=== PATIENT | female | born 1965 | race Caucasian/White ===

== ENCOUNTER → 2016-03-07 | Outpatient (CLI) | payer BC ==
--- NOTE | 2016-03-08 10:23 | MM ---
Reason for exam: screening (asymptomatic). Last mammogram was performed 3 years and 2 months ago. History: Patient had first child at age 31. Physical Findings: A clinical breast exam by your physician is recommended on an annual basis and results should be correlated with mammographic findings. MG Screening Mammo w CAD Bilateral CC and MLO view(s) were taken. XCCL view(s) were taken of the right breast. Prior study comparison: December 29, 2012, bilateral digital screening mammo w/CAD. May 31, 2008, bilateral diagnostic digital mammog. The breast tissue is heterogeneously dense. This may lower the sensitivity of mammography. No significant changes when compared with prior studies. ASSESSMENT: Benign, BI-RAD 2 RECOMMENDATION: Routine screening mammogram of both breasts in 1 year.
== END | disposition home or self-care (01) ==
LOC: RADMAMWWP 10:55
PROVIDERS: ATTEND Obstetrics & Gynecology
DX: Z12.31 Encounter for screening mammogram for malignant neoplasm of breast (principal)

== ENCOUNTER → 2016-05-15 | Outpatient (CLI) | payer BC ==
--- NOTE | 2016-05-15 13:37 | BD ---
EXAMINATION TYPE: MG DEXA axial skeleton. DATE OF EXAM: 05/15/2016 10:12 AM COMPARISON: NONE CLINICAL HISTORY: Postmenopausal female Height: 67 Weight: 133.1 FRAX RISK QUESTIONS: Alcohol (3 or more units per day): YES Family History (Parent hip fracture): NO Glucocorticoids (More than 3mos): NO (Ex: prednisone, prednisolone, methylprednisolone, dexamethasone, and hydrocortisone). History of Fracture in Adulthood: NO Secondary Osteoporosis: 1. Type 1 Diabetes: NO 2. Hyperthyroidism: NO 3. Menopause before 45: 4. Malnutrition: NO 5. Chronic liver disease: NO Rheumatoid Arthritis: NO Current Tobacco Use: YES RISK FACTORS HISTORY OF: Hip Fracture (Right/Left): NO Spine Fracture: NO History of Wrist Fracture: NO Surgery to Spine/Hip(right/left)/Wrist (right/left): NO Family History of Osteoporosis: YES Active: YES Diet low in dairy products/other sources of calcium: YES Postmenopausal woman: If Premenopausal, do you have irregular periods: PT HAD AN ABLATION AT AGE 41 Lost more than 2 inches in height since high school: NO Frequent falls: NO Poor Health: NO Adrenal Insufficiency: NO MEDICATIONS: BLOOD PRESSURE, VIT D ,XANAX NEEDED Thyroid Medications: SYNTHROID How Lon YEARS EXAM MEASUREMENTS: Bone mineral densitometry was performed using the Sutus System. Bone mineral density as measured about the Lumbar spine is: ----- L1-L4(G/cm2): 1.176 T Score Values are as follows: ----- L2: 0.7 ----- L3: 0.8 ----- L4: -0.4 ----- L1-L4: 0.0 Bone mineral density has: INCREASED 15.9 % since study of: 08.17.2008 Bone mineral density about the R hip (g/cm2): 0.885 Bone mineral density about the L hip (g/cm2): 0.896 T Score values are as follows: -----R Neck: -1.1 -----L Neck: -1.0 -----R Intertrochanter: -1.4 -----L Intertrochanter: -1.0 Bone mineral density has: DECREASED =8.6 % since study of: 08.17.2008 IMPRESSION: Findings compatible with osteopenia involving the bilateral proximal femora. As such there is increas ed fracture risk. NOTE: T-SCORE=SD OF THE YOUNG ADULT MEAN.
== END | disposition home or self-care (01) ==
LOC: RADBDWWP 09:55
PROVIDERS: ATTEND Obstetrics & Gynecology
DX: Z78.0 Asymptomatic menopausal state (principal)
CPT/HCPCS: 77080

== ENCOUNTER 2016-10-15 12:18 | Observation (INO) | payer BC ==
[2016-10-15 13:06] LABS: Glucose,Whole Blood 134 mg/dL (75-99)
[2016-10-15] MEDS ORDERED: SODIUM CHLORIDE 0.9% 2,000 ML IV ONE (13:09)
[2016-10-15] MEDS ORDERED: SODIUM CHLORIDE 0.9% 1,000 ML IV STA (13:09)
--- NOTE | 2016-10-15 13:13 | ED ---
Syncope HPI - General Chief Complaint: Syncope Stated Complaint: Dizziness Time Seen by Provider: 10/15/16 12:30 Source: patient, RN notes reviewed Mode of arrival: ambulatory Limitations: no limitations - History of Present Illness Initial Comments: This is a 51-year-old female who states she didn't not feeling well for the past several days she's had nausea chills and some lower abdominal pain in the right side for past 2 days. She is noted to have a blood pressure 90/50 she apparently passed out numerous times her last several days. She complains no head or neck or back pain no extremity weakness. No dysuria hematuria. MD Complaint: loss of consciousness - Related Data Home Medications Medication Instructions Recorded Confirmed Cholecalciferol [Vitamin D3] 1,000 unit PO DAILY 10/15/16 10/15/16 Escitalopram [Lexapro] 10 mg PO DAILY 10/15/16 10/15/16 Levothyroxine Sodium [Synthroid] 50 mcg PO DAILY 10/15/16 10/15/16 Lisinopril-Hctz 20-25 mg 1 tab PO DAILY 10/15/16 10/15/16 [Zestoretic 20-25] Allergies Allergy/AdvReac Type Severity Reaction Status Date / Time No Known Allergies Allergy Verified 10/15/16 14:23 Review of Systems ROS Statement: Those systems with pertinent positive or pertinent negative responses have been documented in the HPI. ROS Other: All systems not noted in ROS Statement are negative. Past Medical History Past Medical History: Hypertension, Thyroid Disorder History of Any Multi-Drug Resistant Organisms: None Reported Past Surgical History: Uterine Ablation Additional Past Surgical History / Comment(s): left sided thyroidectomy, knee sx Past Psychological History: Anxiety, Depression Smoking Status: Current every day smoker Past Alcohol Use History: Occasional Past Drug Use History: None Reported General Exam - General Exam Comments Initial Comments: This is a well-developed well-nourished awake alert oriented 3 female Limitations: no limitations General appearance: alert, in no apparent distress Head exam: Present: atraumatic, normocephalic, normal inspection Eye exam: Present: normal appearance, PERRL, EOMI. Absent: scleral icterus, conjunctival injection, periorbital swelling ENT exam: Present: mucous membranes dry Neck exam: Present: normal inspection. Absent: tenderness, meningismus, lymphadenopathy Respiratory exam: Present: normal lung sounds bilaterally. Absent: respiratory distress, wheezes, rales, rhonchi, stridor Cardiovascular Exam: Present: normal rhythm, tachycardia GI/Abdominal exam: Present: soft (Right lower quadrant tenderness palpation no definite guarding or rebound.), tenderness Rectal exam: Present: deferred Extremities exam: Present: normal inspection, full ROM, normal capillary refill. Absent: tenderness, pedal edema, joint swelling, calf tenderness Back exam: Present: normal inspection Neurological exam: Present: alert, oriented X3, CN II-XII intact Psychiatric exam: Present: normal affect, normal mood Skin exam: Present: warm, dry, intact, normal color. Absent: rash Course Vital Signs 10/15/16 10/15/16 10/15/16 12:28 13:32 14:00 Temperature 97.2 F L Pulse Rate 111 H 75 80 Respiratory 18 18 20 Rate Blood Pressure 74/49 82/53 96/51 O2 Sat by Pulse 100 96 99 Oximetry 10/15/16 10/15/16 16:00 17:00 Temperature Pulse Rate 87 76 Respiratory 20 20 Rate Blood Pressure 107/54 100/59 O2 Sat by Pulse 95 94 L Oximetry EKG Findings - EKG Results: EKG: interpreted by SANDRA, sinus rhythm (EKG shows a sinus rhythm of 83 appear of 01 60 QRS duration 84 QT since QTC of 3/446 right atrial enlargement evidence of indeterminate age anterior infarct. No acute ST-T wave elevations or depressions at this time.) Medical Decision Making - Medical Decision Making I did discuss findings with the patient she will be admitted for evaluation of syncope also abdominal pain. The CAT scan report was unavailable after prolonged period of time. The admitting service was made aware of this. They will review the CAT scan and final report. - Lab Data Result diagrams: 10/15/16 13:09 10/15/16 13:09 Lab Results 10/15/16 10/15/16 10/15/16 Range/Units 13:03 13:09 13:09 WBC (3.8-10.6) k/uL RBC (3.80-5.40) m/uL Hgb (11.4-16.0) gm/dL Hct (34.0-46.0) % MCV (80.0-100.0) fL MCH (25.0-35.0) pg MCHC (31.0-37.0) g/dL RDW (11.5-15.5) % Plt Count (150-450) k/uL Neutrophils % % Lymphocytes % % Monocytes % % Eosinophils % % Basophils % % Neutrophils # (1.3-7.7) k/uL Lymphocytes # (1.0-4.8) k/uL Monocytes # (0-1.0) k/uL Eosinophils # (0-0.7) k/uL Basophils # (0-0.2) k/uL PT (9.0-12.0) sec INR (<1.2) APTT (22.0-30.0) sec Sodium 132 L (137-145) mmol/L Potassium 3.6 (3.5-5.1) mmol/L Chloride 90 L (98-107) mmol/L Carbon Dioxide 28 (22-30) mmol/L Anion Gap 14 mmol/L BUN 43 H (7-17) mg/dL Creatinine 2.19 H (0.52-1.04) mg/dL Est GFR (MDRD) Af Amer 29 (>60 ml/min/1.73 sqM) Est GFR (MDRD) Non-Af 24 (>60 ml/min/1.73 sqM) Glucose 109 H (74-99) mg/dL POC Glucose (mg/dL) 134 H (75-99) mg/dL POC Glu Sr. Logistics Analyst ID Calcium 9.6 (8.4-10.2) mg/dL Magnesium 1.9 (1.6-2.3) mg/dL Total Bilirubin 0.6 (0.2-1.3) mg/dL AST 32 (14-36) U/L ALT 34 (9-52) U/L Alkaline Phosphatase 97 (38-126) U/L Total Creatine Kinase 110 (30-135) U/L CK-MB (CK-2) 3.3 H* (0.0-2.4) ng/mL CK-MB (CK-2) Rel Index 3.0 Troponin I <0.012 (0.000-0.034) ng/mL Total Protein 7.0 (6.3-8.2) g/dL Albumin 4.2 (3.5-5.0) g/dL Amylase 119 H (30-110) U/L Lipase 147 (23-300) U/L Urine Color Urine Appearance (Clear) Urine pH (5.0-8.0) Ur Specific [place] (1.001-1.035) Urine Protein (Negative) Urine Glucose (UA) (Negative) Urine Ketones (Negative) Urine Blood (Negative) Urine Nitrite (Negative) Urine Bilirubin (Negative) Urine Urobilinogen (<2.0) mg/dL Ur Leukocyte Esterase (Negative) 10/15/16 10/15/16 10/15/16 Range/Units 13:09 13:09 17:14 WBC 10.2 (3.8-10.6) k/uL RBC 4.06 (3.80-5.40) m/uL Hgb 14.0 (11.4-16.0) gm/dL Hct 39.0 (34.0-46.0) % MCV 96.1 (80.0-100.0) fL MCH 34.5 (25.0-35.0) pg MCHC 35.9 (31.0-37.0) g/dL RDW 12.7 (11.5-15.5) % Plt Count 301 (150-450) k/uL Neutrophils % 75 % Lymphocytes % 14 % Monocytes % 8 % Eosinophils % 1 % Basophils % 0 % Neutrophils # 7.6 (1.3-7.7) k/uL Lymphocytes # 1.4 (1.0-4.8) k/uL Monocytes # 0.8 (0-1.0) k/uL Eosinophils # 0.1 (0-0.7) k/uL Basophils # 0.0 (0-0.2) k/uL PT 9.9 (9.0-12.0) sec INR 1.0 (<1.2) APTT 23.8 (22.0-30.0) sec Sodium (137-145) mmol/L Potassium (3.5-5.1) mmol/L Chloride (98-107) mmol/L Carbon Dioxide (22-30) mmol/L Anion Gap mmol/L BUN (7-17) mg/dL Creatinine (0.52-1.04) mg/dL Est GFR (MDRD) Af Amer (>60 ml/min/1.73 sqM) Est GFR (MDRD) Non-Af (>60 ml/min/1.73 sqM) Glucose (74-99) mg/dL POC Glucose (mg/dL) (75-99) mg/dL POC Glu Sr. Logistics Analyst ID Calcium (8.4-10.2) mg/dL Magnesium (1.6-2.3) mg/dL Total Bilirubin (0.2-1.3) mg/dL AST (14-36) U/L ALT (9-52) U/L Alkaline Phosphatase (38-126) U/L Total Creatine Kinase (30-135) U/L CK-MB (CK-2) (0.0-2.4) ng/mL CK-MB (CK-2) Rel Index Troponin I (0.000-0.034) ng/mL Total Protein (6.3-8.2) g/dL Albumin (3.5-5.0) g/dL Amylase (30-110) U/L Lipase (23-300) U/L Urine Color Yellow Urine Appearance Clear (Clear) Urine pH 6.0 (5.0-8.0) Ur Specific [place] 1.007 (1.001-1.035) Urine Protein Negative (Negative) Urine Glucose (UA) Negative (Negative) Urine Ketones 1+ H (Negative) Urine Blood Negative (Negative) Urine Nitrite Negative (Negative) Urine Bilirubin Negative (Negative) Urine Urobilinogen <2.0 (<2.0) mg/dL Ur Leukocyte Esterase Negative (Negative) - Radiology Data Radiology results: report reviewed (I did review the initial imaging and report there is calcification noted in the left upper quadrant otherwise unremarkable x -ray.), image reviewed Disposition Clinical Impression: Syncope and collapse, Abdominal pain, Renal failure, Splenic cyst Disposition: ADMITTED IP TO THIS [facility] Condition: Stable Referrals: Kevin Gabriel III, MD [Primary Care Provider] - 1-2 days Decision Time: 16:00
[2016-10-15 13:23] LABS: Basophils % (A) 0 %; CH 34.9; CHCM 36.4; Eosinophils # (A) 0.1 k/uL (0-0.7); Eosinophils % (A) 1 %; HDW 2.23; Luc # (Auto) 0.25; Luc % (Auto) 2; Lymphocytes # (A) 1.4 k/uL (1.0-4.8); Lymphocytes % (A) 14 %; MCH 34.5 pg (25.0-35.0); MCHC 35.9 g/dL (31.0-37.0); MCV 96.1 fL (80.0-100.0); Mean Platelet Volume 6.8; Monocytes # (A) 0.8 k/uL (0-1.0); Monocytes % (A) 8 %; Neutrophils # (A) 7.6 k/uL (1.3-7.7); Neutrophils % (A) 75 %; RBC 4.06 m/uL (3.80-5.40); RDW 12.7 % (11.5-15.5); WBC 10.2 k/uL (3.8-10.6); WBC (Perox) 10.73
[2016-10-15 13:32] LABS: Partial Thromboplastin Time 23.8 sec (22.0-30.0); Prothrombin Time 9.9 sec (9.0-12.0)
[2016-10-15 13:40] LABS: Calcium 9.6 mg/dL (8.4-10.2); Magnesium 1.9 mg/dL (1.6-2.3); Potassium 3.6 mmol/L (3.5-5.1); Total Bilirubin 0.6 mg/dL (0.2-1.3)
[2016-10-15 13:55] LABS: Creatine Kinase 110 U/L (30-135)
[2016-10-15 14:07] LABS: Troponin I <0.012 ng/mL (0.000-0.034)
[2016-10-15 14:10] LABS: Creatine Kinase MB 3.3 ng/mL (0.0-2.4)
--- NOTE | 2016-10-15 14:10 | XR ---
EXAMINATION TYPE: XR abdomen acute w cxr DATE OF EXAM: 10/15/2016 COMPARISON: NONE HISTORY: Pain TECHNIQUE: Supine, upright, and left side down lateral decubitus views of the abdomen are obtained. FINDINGS: Large calcifications in the left upper quadrant could be related to splenic cysts or spleni c artery aneurysm. Favor splenic cyst. No pleural effusion or pneumothorax. The lungs are clear. Curvature the spine. Bowel gas pattern nonspecific with no obstruction. No suspicious calcifications. IMPRESSION: Nonspecific abdomen with no obstruction. Large calcifications left upper quadrant could be related to large splenic cyst or less likely splenic artery aneurysm. Correlate with ultrasound or CT scan if c linically warranted.
[2016-10-15 17:24] LABS: Appearance,Urine Clear (Clear); Bilirubin,Urine Negative (Negative); Glucose,Urine (UA) Negative (Negative); Ketones,Urine 1+ (Negative); Leukocyte Esterase,Urine Negative (Negative); Nitrite,Urine Negative (Negative); Protein,Urine Negative (Negative); Specific Gravity,Urine 1.007 (1.001-1.035); UA Billing (MACRO vs. MICRO) CHEM; Urobilinogen,Urine <2.0 mg/dL (<2.0)
[2016-10-15] MEDS ORDERED: NALOXONE 0.4 MG/ML 1 ML VIAL IV PRN (17:46)
[2016-10-15 18:50] VITALS: BMI 20.9
--- NOTE | 2016-10-15 19:43 | CT ---
EXAMINATION TYPE: CT abdomen pelvis wo con DATE OF EXAM: 10/15/2016 COMPARISON: NONE HISTORY: Nausea, abdominal pain and syncope. CT DLP: 258.9 mGycm Automated exposure control for dose reduction was used. TECHNIQUE: Helical acquisition of images was performed from the lung bases through the pelvis. FINDINGS: Lack of intravenous and oral contrast Limited evaluation of the hollow and solid viscera. LUNG BASES: No significant abnormality is appreciated. There is a small hiatal hernia. LIVER/GB: Focal fatty infiltration is seen in segment IVb of the liver, geographic and wedge shaped i n the typical location near the fissure for the falciform ligament. Remainder the unenhanced hepatic parenchyma is grossly unremarkable. Gallbladder is contracted. PANCREAS: No significant abnormality is seen. SPLEEN: Peripherally calcified rounded cystic lesion is seen within the superior spleen measuring 7.3 x 6.4 cm with smaller 3.2 cm similar appearing lesion more inferiorly. This is thought to also be fl uid attenuated centrally although volume averaging is seen from the adjacent calcifications. ADRENALS: No significant abnormality is seen. KIDNEYS: 2.6 cm simple right midpole renal cyst exophytically emanates laterally. No evidence of hydr onephrosis or nephrolithiasis. Second 1.1 cm right upper pole renal cyst is noted. FREE AIR: No free air is visualized RETROPERITONEAL ADENOPATHY: None visualized REPRODUCTIVE ORGANS: Right adnexal follicular changes are seen. Otherwise unremarkable. URINARY BLADDER: No significant abnormality is seen. PELVIC ADENOPATHY: None visualized. OSSEOUS STRUCTURES: No significant abnormality is seen. BOWEL: Scattered sigmoid diverticula are present without pericolonic fat stranding.. IMPRESSION: 1. No CT finding to correspond with the patient's abdominal pain and nausea. No evidence of bowel obs truction. Sigmoid diverticulosis without evidence of diverticulitis. 2. Small hiatal hernia. 3. Large calcified stomach lesion and adjacent smaller calcified splenic lesion, both thought to be c ystic internally. These could represent peripherally calcified splenic lymphangiomas, hemangiomas, po sttraumatic fall cysts or less likely hydatid cysts.
[2016-10-15] MEDS: SODIUM CHLORIDE 0.9% 1,000 ML IV SCH (20:58)
[2016-10-15] MEDS ORDERED: CALCIUM CARBONATE 500 MG CHEWABLE PO PRN (21:08)
[2016-10-15 23:53] VITALS: RESP 16
[2016-10-16] MEDS ORDERED: LEVOTHYROXINE 50 MCG TAB PO SCH (06:30)
[2016-10-16] MEDS: SODIUM CHLORIDE 0.9% 1,000 ML IV SCH (06:40)
[2016-10-16 08:21] VITALS: BP 113/56; PULSE 67; TEMP 98
[2016-10-16] MEDS ORDERED: ESCITALOPRAM 10 MG TAB PO SCH (09:00)
[2016-10-16] MEDS ORDERED: LISINOPRIL-HCTZ 20-25 MG 1 EACH TAB PO SCH (09:00)
[2016-10-16] MEDS ORDERED: CHOLECALCIFEROL 1,000 UNIT TAB PO SCH (09:00)
[2016-10-16] MEDS ORDERED: ACETAMINOPHEN TAB 325 MG TAB PO STA (11:09)
--- NOTE | 2016-10-16 11:12 | ECHOF ---
Referral Reason:Syncope MEASUREMENTS -------- HEIGHT: 167.6 cm WEIGHT: 58.1 kg BP: 108/62 IVSd: 0.6 cm (0.6 - 1.1) LVIDd: 4.1 cm (3.9 - 5.3) LVPWd: 1.0 cm (0.6 - 1.1) IVSs: 1.2 cm LVIDs: 2.0 cm LVPWs: 1.8 cm Ao Diam: 2.9 cm (2.0 - 3.7) AV Cusp: 1.9 cm (1.5 - 2.6) LA Diam: 2.9 cm (2.7 - 3.8) MV EXCURSION: 17.310 mm (> 18.000) MV EF SLOPE: 133 mm/s (70 - 150) EPSS: 0.4 cm MV E [place]: 0.98 m/s MV DecT: 216 ms MV A [place]: 1.08 m/s MV E/A Ratio: 0.90 RAP: 5.00 mmHg RVSP: 9.35 mmHg FINDINGS -------- Sinus rhythm. This was a technically good study. Left ventricular wall thickness is normal. Overall left ventricular systolic function is normal with, an EF between 55 - 60 %. The right ventricle is normal in size. The left atrium is normal in size. The right atrium is normal in size. The aortic valve is trileaflet, and appears structurally normal. No aortic stenosis or regurgitation. There is trace mitral regurgitation. Trace tricuspid regurgitation present. The right ventricular systolic pressure, as measured by Doppler, is 9.35mmHg. Pulmonic valve appears structurally normal. The aortic root size is normal. The pericardium is normal. CONCLUSIONS -------- 1. Sinus rhythm. 2. Trace tricuspid regurgitation present. 3. The right ventricular systolic pressure, as measured by Doppler, is 9.35mmHg. 4. Pulmonic valve appears structurally normal. 5. The aortic root size is normal. 6. The pericardium is normal. 7. This was a technically good study. 8. Left ventricular wall thickness is normal. 9. Overall left ventricular systolic function is normal with, an EF between 55 - 60 %. 10. The right ventricle is normal in size. 11. The left atrium is normal in size. 12. The right atrium is normal in size. 13. The aortic valve is trileaflet, and appears structurally normal. No aortic stenosis or regurgitation. 14. There is trace mitral regurgitation. LADLE OPERATOR: Bailey Cartwright RDCS
--- NOTE | 2016-10-16 12:00 | US ---
EXAMINATION TYPE: US carotid duplex BILAT DATE OF EXAM: 10/16/2016 COMPARISON: NONE CLINICAL HISTORY: Pain. Hypotension, dizziness, weakness EXAM MEASUREMENTS: RIGHT: Peak Systolic Velocity (PSV) cm/sec ----- Right CCA: 68.2 ----- Right ICA: 106.0 ----- Right ECA: 72.4 ICA/CCA ratio: 1.6 RIGHT: End Diastole cm/sec ----- Right CCA: 20.2 ----- Right ICA: 40.6 ----- Right ECA: 14.2 LEFT: Peak Systolic Velocity (PSV) cm/sec ----- Left CCA: 84.5 ----- Left ICA: 87.1 ----- Left ECA: 48.8 ICA/CCA ratio: 1.0 LEFT: End Diastole cm/sec ----- Left CCA: 25.0 ----- Left ICA: 44.8 ----- Left ECA: 10.4 VERTEBRALS (direction of flow): Right Vertebral: Antegrade Left Vertebral: Antegrade Mild plaque bilateral bifurcations. No evidence of increased velocities. No significant stenosis Grayscale images show mild eccentric plaque at bilateral carotid bulbs more prominent on the left. Ve locity measurements and ratios in visualized portion of both internal carotid arteries is within norm al limits. IMPRESSION: There is no hemodynamically significant stenosis seen in either internal carotid artery.
[2016-10-16 12:44] LABS: Anion Gap 7 mmol/L; Blood Urea Nitrogen 24 mg/dL (7-17); Calcium 8.9 mg/dL (8.4-10.2); Carbon Dioxide 29 mmol/L (22-30); Chloride 101 mmol/L (98-107); Glucose 106 mg/dL (74-99); Non-African American GFR(MDRD) >60 (>60 ml/min/1.73 sqM); Potassium 3.2 mmol/L (3.5-5.1); Sodium 137 mmol/L (137-145)
[2016-10-16] MEDS ORDERED: POTASSIUM CHLORIDE ER 20 MEQ TAB.ER PO STA (14:49)
--- NOTE | 2016-10-16 14:53 | P.HPIM ---
History of Present Illness Patient is a 51-year-old female came in with compensative syncope had 3 episodes yesterday without any seizure-like activity. Patient has been dizzy all day yesterday had episodes lasted for a few seconds. Patient is found to be hypotensive and patient is also found to be in renal failure patient is on lisinopril and hydrocodone for his accommodation for more than any other. Patient has been losing weight probably because of which her blood pressure has come down and the patient appeared to have prerenal azotemia from SHANDA inhibitor and diuretic, after aggressive fluid hydration her kidney function returned to normal from 2.19-0.85 and patient was hypokalemic as well which resolved day as well. Patient hyponatremia resolved with IV fluid hydration. Patient is feeling well. Patient had an echo cardiac exam which is essentially within normal limits patient syncope secondary to hypotension related to her medications. Which will be discontinued and patient will be discharged today. Patient's EKG and telemetry are essentially within normal lives during this hospitalization. Review of Systems REVIEW OF SYSTEMS: CONSTITUTIONAL: No fever, no malaise, no fatigue. HEENT: No recent visual problems or hearing problems. Denied any sore throat. CARDIOVASCULAR: No chest pain, orthopnea, PND, no palpitations. PULMONARY: No shortness of breath, no cough, no hemoptysis. GASTROINTESTINAL: No diarrhea, no nausea, no vomiting, no abdominal pain. Normoactive bowel sounds. NEUROLOGICAL: No headaches, no weakness, no numbness. HEMATOLOGICAL: Denies any bleeding or petechiae. GENITOURINARY: Denies any burning micturition, frequency, or urgency. MUSCULOSKELETAL/RHEUMATOLOGICAL: Denies any joint pain, swelling, or any muscle pain. ENDOCRINE: Denies any polyuria or polydipsia. The rest of the 14-point review of systems is negative. Past Medical History Past Medical History: Hypertension, Thyroid Disorder History of Any Multi-Drug Resistant Organisms: None Reported Past Surgical History: Uterine Ablation Additional Past Surgical History / Comment(s): left sided thyroidectomy, knee sx Past Psychological History: Anxiety, Depression Smoking Status: Current every day smoker Past Alcohol Use History: Occasional Past Drug Use History: None Reported Medications and Allergies Home Medications Medication Instructions Recorded Confirmed Type Cholecalciferol [Vitamin D3] 1,000 unit PO DAILY 10/15/16 10/15/16 History Escitalopram [Lexapro] 10 mg PO DAILY 10/15/16 10/15/16 History Levothyroxine Sodium [Synthroid] 50 mcg PO DAILY 10/15/16 10/15/16 History Allergies Allergy/AdvReac Type Severity Reaction Status Date / Time No Known Allergies Allergy Verified 10/15/16 14:23 Physical Exam Vitals: Vital Signs Temp Pulse Pulse Resp BP BP Pulse Ox 10/16/16 08:20 98 F 67 16 113/56 100 10/16/16 04:00 98.1 F 63 16 108/62 97 10/16/16 00:00 97.6 F 65 16 113/59 94 L 10/15/16 20:00 97.6 F 79 16 112/56 94 L 10/15/16 19:06 97 F L 76 17 104/52 96 10/15/16 18:21 98 F 10/15/16 18:00 106 H 20 118/63 98 10/15/16 17:00 76 20 100/59 94 L 10/15/16 16:00 87 20 107/54 95 Intake and Output 10/15/16 10/16/16 10/16/16 22:59 06:59 14:59 Intake Total 2200 400 Output Total 300 300 Balance 1900 100 Intake: IV 200 400 Sodium Chloride 0.9% 1, 200 400 000 ml @ 100 mls/hr IV . Q10H JAZMIN Rx#:[id number] Amount of Fluid Infused ( 2000 ml) Output: Urine 300 300 Other: Voiding Method Toilet Toilet # Voids 1 1 Weight 58.967 kg 58.3 kg PHYSICAL EXAMINATION: GENERAL: The patient is alert and oriented x3, not in any acute distress. Well developed, well nourished. HEENT: Pupils are round and equally reacting to light. EOMI. No scleral icterus. No conjunctival pallor. Normocephalic, atraumatic. No pharyngeal erythema. No thyromegaly. CARDIOVASCULAR: S1 and S2 present. No murmurs, rubs, or gallops. PULMONARY: Chest is clear to auscultation, no wheezing or crackles. ABDOMEN: Soft, nontender, nondistended, normoactive bowel sounds. No palpable organomegaly. MUSCULOSKELETAL: No joint swelling or deformity. EXTREMITIES: No cyanosis, clubbing, or pedal edema. NEUROLOGICAL: Gross neurological examination did not reveal any focal deficits. SKIN: No rashes. Results CBC & Chem 7: 10/15/16 13:09 10/16/16 12:16 Labs: Abnormal Lab Results - Last 24 Hours (Table) 10/15/16 10/16/16 Range/Units 17:14 12:16 Potassium 3.2 L (3.5-5.1) mmol/L BUN 24 H (7-17) mg/dL Glucose 106 H (74-99) mg/dL Urine Ketones 1+ H (Negative) Thrombosis Risk Factor Assmnt - Choose All That Apply Any of the Below Risk Factors Present?: Yes Each Factor Represents 1 point: Age 41-60 years Thrombosis Risk Factor Assessment Total Risk Factor Score: 1 Thrombosis Risk Factor Assessment Level: Low Risk Assessment and Plan Plan: #1 syncope: Related to antidepressant medication. Which will be discontinued. #2 acute renal failure: Prerenal azotemia from SHANDA inhibitor and diuretic therapy improved with IV normal saline. Antidepressive medications will be discharged. Next and #3 hyponatremia: Hypovolemic hyponatremia secondary to above-mentioned reasons. #4 tachycardia: Due to hypotension and intravascular depletion and acute renal failure before all of which improved with IV fluid hydration and disc herniation of her antidepressant medication #5 hypothyroidism: I do not have a TSH available which was ordered but will not hold her discharge for that which can be further evaluated and treated accordingly as an outpatient.
--- NOTE | 2016-10-16 14:53 | P.DS ---
Providers Date of admission: 10/15/16 17:46 Attending physician: Darius Brunson Primary care physician: Kevin Gabriel [facility] Course: Please refer to HPI Patient Condition at Discharge: Stable Plan - Discharge Summary New Discharge Prescriptions: Discontinued Lisinopril-Hctz 20-25 mg [Zestoretic 20-25] 1 tab PO DAILY No Action Levothyroxine Sodium [Synthroid] 50 mcg PO DAILY Escitalopram [Lexapro] 10 mg PO DAILY Cholecalciferol [Vitamin D3] 1,000 unit PO DAILY Discharge Medication List Cholecalciferol [Vitamin D3] 1,000 unit PO DAILY 10/15/16 [History] Escitalopram [Lexapro] 10 mg PO DAILY 10/15/16 [History] Levothyroxine Sodium [Synthroid] 50 mcg PO DAILY 10/15/16 [History] Follow up Appointment(s)/Referral(s): Kevin Gabriel III, MD [Primary Care Provider] - 10/18/16 10:00 am Patient Instructions/Handouts: Syncope (DC) Discharge Disposition: HOME SELF-CARE
== END 2016-10-16 14:27 | disposition home or self-care (01) ==
LOC: EC 12:18 → 6SEL 17:46
PROVIDERS: ADMIT Internal Medicine; ATTEND Internal Medicine
DX: R55 Syncope and collapse (principal); T43.205A Adverse effect of unspecified antidepressants, initial encounter; N17.9 Acute kidney failure, unspecified; E86.1 Hypovolemia; E87.1 Hypo-osmolality and hyponatremia; I95.9 Hypotension, unspecified; E03.9 Hypothyroidism, unspecified; I10 Essential (primary) hypertension; F17.200 Nicotine dependence, unspecified, uncomplicated; F41.9 Anxiety disorder, unspecified; F32.9 Major depressive disorder, single episode, unspecified; Z79.899 Other long term (current) drug therapy
CPT/HCPCS: 99285; 96360 ×2; 96361 ×7; 36415; 93005; 93306; 84439; 80053; 80048; 84443; 82150; 82550; 82553; 83690; 83735; 84484; 85025; 85610; 85730; 81003; 87040; 74022; 93880; 74176; G0378 ×2

== ENCOUNTER 2017-05-07 10:57 | Emergency (ER) | payer BC ==
[2017-05-07 11:20] VITALS: TEMP 98
[2017-05-07] MEDS ORDERED: RX INFO: IV CONTRAST WAS GIVEN 1 EACH MISC MISCELLANE PRN (12:38)
[2017-05-07] MEDS ORDERED: SODIUM CHLORIDE 0.9% 1,000 ML IV STA (12:38)
[2017-05-07 13:16] LABS: Basophils # (A) 0.1 k/uL (0-0.2); Basophils % (A) 1 %; Eosinophils # (A) 0.1 k/uL (0-0.7); Eosinophils % (A) 2 %; HCT 42.4 % (34.0-46.0); HGB 14.3 gm/dL (11.4-16.0); Lymphocytes # (A) 0.4 k/uL (1.0-4.8); Lymphocytes % (A) 8 %; MCH 33.4 pg (25.0-35.0); MCHC 33.8 g/dL (31.0-37.0); MCV 98.7 fL (80.0-100.0); Mean Platelet Volume 7.1; Monocytes # (A) 0.1 k/uL (0-1.0); Monocytes % (A) 1 %; Neutrophils # (A) 4.8 k/uL (1.3-7.7); Neutrophils % (A) 87 %; Platelet Count 236 k/uL (150-450); RBC 4.29 m/uL (3.80-5.40); RDW 13.3 % (11.5-15.5); WBC 5.5 k/uL (3.8-10.6)
[2017-05-07 13:27] LABS: ALT 27 U/L (9-52); AST 32 U/L (14-36); Albumin 4.2 g/dL (3.5-5.0); Alkaline Phosphatase 114 U/L (38-126); Anion Gap 9 mmol/L; Blood Urea Nitrogen 12 mg/dL (7-17); Calcium 9.6 mg/dL (8.4-10.2); Carbon Dioxide 26 mmol/L (22-30); Chloride 105 mmol/L (98-107); D-Dimer 0.5 mg/L FEU (<0.60); Glucose 117 mg/dL (74-99); Magnesium 1.3 mg/dL (1.6-2.3); Potassium 4.1 mmol/L (3.5-5.1); Sodium 140 mmol/L (137-145); Total Bilirubin 0.6 mg/dL (0.2-1.3); Total Protein 7.3 g/dL (6.3-8.2)
[2017-05-07 13:32] LABS: INR 1.1 (<1.2); Partial Thromboplastin Time 26.1 sec (22.0-30.0); Prothrombin Time 10.5 sec (9.0-12.0)
[2017-05-07 13:36] LABS: Creatine Kinase 204 U/L (30-135)
[2017-05-07 13:43] VITALS: RESP 16
[2017-05-07 13:50] LABS: Troponin I <0.012 ng/mL (0.000-0.034)
--- NOTE | 2017-05-07 13:55 | CT ---
EXAMINATION TYPE: CT abdomen pelvis w con DATE OF EXAM: 05/07/2017 HISTORY: Patient complains abnormal xray at doctors office. Pain per order. CT DLP: 933.36mGycm Automated Exposure Control for Dose Reduction was Utilized. CONTRAST: CT scan of the abdomen and pelvis is performed without oral but with IV Contrast, patient injected wi th 100 mL of Omnipaque 350. COMPARISON: CT abdomen and pelvis October 15, 2016 FINDINGS: LUNG BASES: Please see same-day CTA chest report for complete details. LIVER/GB: No significant abnormality is appreciated. PANCREAS: No significant abnormality is seen. SPLEEN: There is stable rim calcified low dense lesion superior aspect of spleen measuring 7.1 x 6.6 cm axial image 15. There is smaller rim calcified also low dense with slightly more heterogeneous les ion anterior and inferior to this measuring 3.2 x 2.7 cm axial image 22 also redemonstrated. Neither lesion shows significant change from prior study. ADRENALS: No significant abnormality is seen. KIDNEYS: There is stable simple appearing 2.7 cm cyst laterally mid pole level right kidney. Smaller subcentimeter lesion posteriorly upper pole level right kidney is too small to further characterize b ut stable and presumed benign. BOWEL: Sigmoid colonic diverticulosis is redemonstrated. There is no suspicious small or large bowel dilatation. UTERUS/ADNEXA: Anteverted uterus is present right ovary is normal in size on axial image 60. Left ova ry is asymmetrically enlarged on current study and heterogeneous measuring 3.0 x 2.7 cm. LYMPH NODES: No greater than 1cm abdominal or pelvic lymph nodes are appreciated. OSSEOUS STRUCTURES: S-shaped scoliosis is redemonstrated. There is multilevel spurring in the thoraco lumbar spine. OTHER: No significant additional abnormality is seen. IMPRESSION: 1. No significant acute or new finding is seen to account for patient's clinical symptoms. 2. Stable rim calcified splenic lesions favoring benign etiology redemonstrated. This may be accounti ng for x-ray abnormality. 3. Left ovary is abnormal for postmenopausal female and cystic neoplasm cannot be excluded. Advise no nemergent obstetric referral and nonemergent pelvic ultrasound follow-up.
[2017-05-07 13:56] LABS: Creatine Kinase MB 9.6 ng/mL (0.0-2.4)
--- NOTE | 2017-05-07 13:58 | CT ---
EXAMINATION TYPE: CT chest angio for PE DATE OF EXAM: 05/07/2017 COMPARISON: Outside chest x-ray earlier today. Old CT abdomen and pelvis study October 15, 2016 HISTORY: Patient complains of difficulty breathing and cold like symptoms. CT DLP: 416.66 mGycm. Automated Exposure Control for Dose Reduction was Utilized. CONTRAST: CTA scan of the thorax is performed with IV Contrast, patient injected with 100 mL of Omnipaque 350, pulmonary embolism protocol. MIP Images are created on CT scanner and reviewed. FINDINGS: LUNGS: Mild underlying emphysematous change is present. No suspicious focal groundglass opacity or co nsolidation is seen. No pleural effusion or pneumothorax is noted bilaterally. No concerning parenchy mal nodule or mass is seen. MEDIASTINUM: There is satisfactory enhancement of the pulmonary artery and its branches, there is no CT evidence for pulmonary embolism. There are no greater than 1 cm hilar or mediastinal lymph nodes. No cardiomegaly or pericardial effusion is seen. There are partial visualization of thyroid nodule s, lower pole right thyroid nodules are felt greater than 1 cm in size. OTHER: Please refer to same day CT abdomen and pelvis report for complete details on the upper abdome n. Underlying scoliosis is present. There is multilevel spurring in the thoracic spine seen. IMPRESSION: 1. No CT evidence for acute pulmonary embolism. 2. Mild emphysematous change without suspicious acute pulmonary process. 3. Advise nonemergent thyroid ultrasound to further evaluate thyroid nodules.
--- NOTE | 2017-05-07 14:15 | ED ---
Pediatric SOB HPI - General Chief Complaint: Shortness of Breath Stated Complaint: valentino Time Seen by Provider: 05/07/17 12:27 Source: patient, RN notes reviewed, old records reviewed Mode of arrival: ambulatory Limitations: no limitations - History of Present Illness Initial Comments: This patient is a 52-year-old female presents emergency Department chief complaint of shortness of breath for the past month. Patient reports that she was seen at urgent care initially. Patient was given a chest x-ray there which there was an abnormal calcific finding. Patient was sent here for further evaluation and CAT scan. Patient states that she was being treated for bronchitis versus shortness of breath earlier in the month. She states she's never seemed to get better. She states that she hasn't having just this difficulty in breathing. No significant coughing noted. She relates that she has had no specific chest pain or shortness of breath. She states occasionally she'll have some abdominal cramping. No significant weight loss. She states that she always has night sweats. - Related Data Home Medications Medication Instructions Recorded Confirmed Escitalopram [Lexapro] 10 mg PO DAILY 10/15/16 05/07/17 Levothyroxine Sodium [Synthroid] 50 mcg PO DAILY 10/15/16 05/07/17 Losartan [Cozaar] 50 mg PO DAILY 05/07/17 05/07/17 Previous Rx's Medication Instructions Recorded Albuterol Inhaler [Ventolin Hfa 1 - 2 puff INHALATION Q6HR PRN #1 05/07/17 Inhaler] inhaler Albuterol Nebulized [Ventolin 2.5 mg INHALATION Q4H #30 nebu 05/07/17 Nebulized] predniSONE 50 mg PO DAILY #5 tablet 05/07/17 Allergies Allergy/AdvReac Type Severity Reaction Status Date / Time No Known Allergies Allergy Verified 05/07/17 12:45 Review of Systems ROS Statement: Those systems with pertinent positive or pertinent negative responses have been documented in the HPI. ROS Other: All systems not noted in ROS Statement are negative. Past Medical History Past Medical History: Hypertension, Thyroid Disorder History of Any Multi-Drug Resistant Organisms: None Reported Past Surgical History: Uterine Ablation Additional Past Surgical History / Comment(s): left sided thyroidectomy, knee sx Past Psychological History: Anxiety, Depression Smoking Status: Current every day smoker Past Alcohol Use History: Occasional Past Drug Use History: None Reported General Exam - General Exam Comments Initial Comments: This is a well-appearing 52-year-old female. Patient does not appear to be in any acute distress. Limitations: no limitations General appearance: alert, in no apparent distress Head exam: Present: atraumatic, normocephalic, normal inspection Eye exam: Present: normal appearance, PERRL, EOMI. Absent: scleral icterus, conjunctival injection, periorbital swelling ENT exam: Present: normal exam, mucous membranes moist Neck exam: Present: normal inspection. Absent: tenderness, meningismus, lymphadenopathy Respiratory exam: Present: normal lung sounds bilaterally. Absent: respiratory distress, wheezes, rales, rhonchi, stridor Cardiovascular Exam: Present: regular rate, normal rhythm, normal heart sounds. Absent: systolic murmur, diastolic murmur, rubs, gallop, clicks GI/Abdominal exam: Present: soft, normal bowel sounds. Absent: distended, tenderness, guarding, rebound, rigid Back exam: Present: normal inspection Neurological exam: Present: alert, oriented X3, CN II-XII intact Psychiatric exam: Present: normal affect, normal mood Skin exam: Present: warm, dry, intact, normal color. Absent: rash Course Vital Signs 05/07/17 05/07/17 05/07/17 11:17 13:42 13:50 Temperature 98.0 F Pulse Rate 58 L 87 Respiratory 20 16 16 Rate Blood Pressure 134/82 139/87 O2 Sat by Pulse 96 97 Oximetry 05/07/17 15:16 Temperature Pulse Rate 91 Respiratory 16 Rate Blood Pressure 135/70 O2 Sat by Pulse 93 L Oximetry Medical Decision Making - Medical Decision Making This patient is a 52-year-old female presents emergency Department chief complaint of shortness of breath for the past month. Patient reports that she was seen at urgent care initially. Patient was given a chest x-ray there which there was an abnormal calcific finding. Patient was sent here for further evaluation and CAT scan. Patient states that she was being treated for bronchitis versus shortness of breath earlier in the month. PAtient vital signs are stable. Patient lungs are clear, no significant wheezing. No abdominal tenderness. Patient labs were reviewed and normal. Normal cardiac workup. Patient CT shows no evidence for PE. CT abdomnen and pelvis show stable findings of a calcified cyst over the spleen. Patient informed of these reusluts. CT chest shows mild emphysema changes, likely relating to patient shortness of breath. Patient also has evidence of abnormal right ovary changes and thyroid changes. Patient informd of these results and non emergent follow up. All questions were answered and return parameters discussed. Will treat for emphysema changes with steriods and breathing treatments. Disucssed close follow up with PCP. - Lab Data Result diagrams: 05/07/17 13:07 05/07/17 13:07 Lab Results 05/07/17 05/07/17 05/07/17 Range/Units 13:07 13:07 13:07 WBC 5.5 (3.8-10.6) k/uL RBC 4.29 (3.80-5.40) m/uL Hgb 14.3 (11.4-16.0) gm/dL Hct 42.4 (34.0-46.0) % MCV 98.7 (80.0-100.0) fL MCH 33.4 (25.0-35.0) pg MCHC 33.8 (31.0-37.0) g/dL RDW 13.3 (11.5-15.5) % Plt Count 236 (150-450) k/uL Neutrophils % 87 % Lymphocytes % 8 % Monocytes % 1 % Eosinophils % 2 % Basophils % 1 % Neutrophils # 4.8 (1.3-7.7) k/uL Lymphocytes # 0.4 L (1.0-4.8) k/uL Monocytes # 0.1 (0-1.0) k/uL Eosinophils # 0.1 (0-0.7) k/uL Basophils # 0.1 (0-0.2) k/uL PT (9.0-12.0) sec INR (<1.2) APTT (22.0-30.0) sec D-Dimer (<0.60) mg/L FEU Sodium 140 (137-145) mmol/L Potassium 4.1 (3.5-5.1) mmol/L Chloride 105 (98-107) mmol/L Carbon Dioxide 26 (22-30) mmol/L Anion Gap 9 mmol/L BUN 12 (7-17) mg/dL Creatinine 0.50 L (0.52-1.04) mg/dL Est GFR (CKD-EPI)AfAm >90 (>60 ml/min/1.73 sqM) Est GFR (CKD-EPI)NonAf >90 (>60 ml/min/1.73 sqM) Glucose 117 H (74-99) mg/dL Calcium 9.6 (8.4-10.2) mg/dL Magnesium 1.3 L (1.6-2.3) mg/dL Total Bilirubin 0.6 (0.2-1.3) mg/dL AST 32 (14-36) U/L ALT 27 (9-52) U/L Alkaline Phosphatase 114 (38-126) U/L Total Creatine Kinase 204 H (30-135) U/L CK-MB (CK-2) 9.6 H* (0.0-2.4) ng/mL CK-MB (CK-2) Rel Index 4.7 Troponin I <0.012 (0.000-0.034) ng/mL Total Protein 7.3 (6.3-8.2) g/dL Albumin 4.2 (3.5-5.0) g/dL Urine Color Urine Appearance (Clear) Urine pH (5.0-8.0) Ur Specific [place] (1.001-1.035) Urine Protein (Negative) Urine Glucose (UA) (Negative) Urine Ketones (Negative) Urine Blood (Negative) Urine Nitrite (Negative) Urine Bilirubin (Negative) Urine Urobilinogen (<2.0) mg/dL Ur Leukocyte Esterase (Negative) 05/07/17 05/07/17 Range/Units 13:07 13:07 WBC (3.8-10.6) k/uL RBC (3.80-5.40) m/uL Hgb (11.4-16.0) gm/dL Hct (34.0-46.0) % MCV (80.0-100.0) fL MCH (25.0-35.0) pg MCHC (31.0-37.0) g/dL RDW (11.5-15.5) % Plt Count (150-450) k/uL Neutrophils % % Lymphocytes % % Monocytes % % Eosinophils % % Basophils % % Neutrophils # (1.3-7.7) k/uL Lymphocytes # (1.0-4.8) k/uL Monocytes # (0-1.0) k/uL Eosinophils # (0-0.7) k/uL Basophils # (0-0.2) k/uL PT 10.5 (9.0-12.0) sec INR 1.1 (<1.2) APTT 26.1 (22.0-30.0) sec D-Dimer 0.50 (<0.60) mg/L FEU Sodium (137-145) mmol/L Potassium (3.5-5.1) mmol/L Chloride (98-107) mmol/L Carbon Dioxide (22-30) mmol/L Anion Gap mmol/L BUN (7-17) mg/dL Creatinine (0.52-1.04) mg/dL Est GFR (CKD-EPI)AfAm (>60 ml/min/1.73 sqM) Est GFR (CKD-EPI)NonAf (>60 ml/min/1.73 sqM) Glucose (74-99) mg/dL Calcium (8.4-10.2) mg/dL Magnesium (1.6-2.3) mg/dL Total Bilirubin (0.2-1.3) mg/dL AST (14-36) U/L ALT (9-52) U/L Alkaline Phosphatase (38-126) U/L Total Creatine Kinase (30-135) U/L CK-MB (CK-2) (0.0-2.4) ng/mL CK-MB (CK-2) Rel Index Troponin I (0.000-0.034) ng/mL Total Protein (6.3-8.2) g/dL Albumin (3.5-5.0) g/dL Urine Color Yellow Urine Appearance Clear (Clear) Urine pH 6.0 (5.0-8.0) Ur Specific [place] 1.019 (1.001-1.035) Urine Protein Trace H (Negative) Urine Glucose (UA) Negative (Negative) Urine Ketones Negative (Negative) Urine Blood Negative (Negative) Urine Nitrite Negative (Negative) Urine Bilirubin Negative (Negative) Urine Urobilinogen <2.0 (<2.0) mg/dL Ur Leukocyte Esterase Negative (Negative) 05/07/17 16:13 EKG shows sinus rhythm with PVCs. Possible anterior infarct. Ventricular rate of 87 bpm. RI interval 186 ms. QRS duration 72 ms. QT QTC 376/452 ms. No evidence of ST elevation or T-wave inversion. - Radiology Data Radiology results: report reviewed CT abdomen and pelvis shows no significant acute findings. Patient is stable room calcific splenic lesions favoring benign etiology. This may be accounting for the x-ray abnormality. The left ovary is also abnormal. Could possibly be cystic neoplasm cannot be excluded. Advised on emergent obstetric for referral and nonemergent pelvic ultrasound for follow-up. No CT evidence for acute pulmonary wasn't. Mild emphysematous changes without suspicious acute pulmonary processes. Advised on emergent thyroid ultrasound for further evaluating thyroid nodules. Disposition Clinical Impression: Splenic cyst, Emphysema lung, Ovarian cyst, Thyroid nodule, Dyspnea Disposition: HOME SELF-CARE Condition: Good Instructions: Emphysema (ED) Additional Instructions: Patient advised to follow-up promptly with primary care physician about CT findings. Patient should take the medication as prescribed. Return to the emergency department if any alarming signs or symptoms occur. Prescriptions: Albuterol Inhaler [Ventolin Hfa Inhaler] 1 - 2 puff INHALATION Q6HR PRN #1 inhaler PRN Reason: Pain Albuterol Nebulized [Ventolin Nebulized] 2.5 mg INHALATION Q4H #30 nebu predniSONE 50 mg PO DAILY #5 tablet Referrals: Marquis Lua DO [Primary Care Provider] - 1-2 days Time of Disposition: 15:00
[2017-05-07 14:19] LABS: Appearance,Urine Clear (Clear); Bilirubin,Urine Negative (Negative); Blood,Urine Negative (Negative); Color,Urine Yellow; Glucose,Urine (UA) Negative (Negative); Ketones,Urine Negative (Negative); Leukocyte Esterase,Urine Negative (Negative); Nitrite,Urine Negative (Negative); Protein,Urine Trace (Negative); Specific Gravity,Urine 1.019 (1.001-1.035); Urobilinogen,Urine <2.0 mg/dL (<2.0)
[2017-05-07 15:17] VITALS: BP 135/70; PULSE 91
== END 2017-05-07 15:16 | disposition home or self-care (01) ==
LOC: EC 10:57
DX: D73.4 Cyst of spleen (principal); N83.209 Unspecified ovarian cyst, unspecified side; J43.9 Emphysema, unspecified; E04.1 Nontoxic single thyroid nodule; I10 Essential (primary) hypertension; E07.9 Disorder of thyroid, unspecified; F41.9 Anxiety disorder, unspecified; F32.9 Major depressive disorder, single episode, unspecified; F17.200 Nicotine dependence, unspecified, uncomplicated; Z79.899 Other long term (current) drug therapy
CPT/HCPCS: 36415; 93005; 85379; 80053; 82550; 82553; 83735; 84484; 85025; 85610; 85730; 81003; 71275; 74177; 99285; 96360; Q9967

== ENCOUNTER 2017-05-31 11:27 | Inpatient (IN) | payer BC ==
[2017-05-31] MEDS ORDERED: SODIUM CHLORIDE 0.9% 500 ML IV STA (11:39)
[2017-05-31] MEDS ORDERED: AZITHROMYCIN 500 MG in SODIUM CHLORIDE 0.9% 250 ML IVPB STA (11:39)
[2017-05-31] MEDS ORDERED: SODIUM CHLORIDE 0.9% 1,000 ML IV STA (11:39)
[2017-05-31] MEDS ORDERED: ALBUTEROL NEBULIZED 2.5 MG/3 ML INHALATION STA ×2 (11:39→14:56)
[2017-05-31] MEDS ORDERED: IPRATROPIUM 0.5 MG/2.5 ML NEBU INHALATION STA (11:39)
[2017-05-31 12:06] LABS: Basophils # (A) 0.1 k/uL (0-0.2); Basophils % (A) 1 %; Eosinophils # (A) 0.6 k/uL (0-0.7); Eosinophils % (A) 10 %; HCT 45.4 % (34.0-46.0); Lymphocytes # (A) 1.6 k/uL (1.0-4.8); Lymphocytes % (A) 25 %; MCH 33.9 pg (25.0-35.0); MCHC 35.1 g/dL (31.0-37.0); MCV 96.6 fL (80.0-100.0); Mean Platelet Volume 6.7; Monocytes # (A) 0.3 k/uL (0-1.0); Monocytes % (A) 4 %; Neutrophils # (A) 3.6 k/uL (1.3-7.7); Neutrophils % (A) 57 %; Platelet Count 307 k/uL (150-450); RDW 12.7 % (11.5-15.5); WBC 6.3 k/uL (3.8-10.6)
--- NOTE | 2017-05-31 12:06 | ED ---
General Adult HPI - General Chief complaint: Shortness of Breath Stated complaint: SOB Time Seen by Provider: 05/31/17 11:39 Source: patient Mode of arrival: ambulatory Limitations: no limitations - Related Data Home Medications Medication Instructions Recorded Confirmed Escitalopram [Lexapro] 10 mg PO DAILY 10/15/16 05/07/17 Levothyroxine Sodium [Synthroid] 50 mcg PO DAILY 10/15/16 05/07/17 Losartan [Cozaar] 50 mg PO DAILY 05/07/17 05/07/17 Previous Rx's Medication Instructions Recorded Albuterol Inhaler [Ventolin Hfa 1 - 2 puff INHALATION Q6HR PRN #1 05/07/17 Inhaler] inhaler Albuterol Nebulized [Ventolin 2.5 mg INHALATION Q4H #30 nebu 05/07/17 Nebulized] predniSONE 50 mg PO DAILY #5 tablet 05/07/17 Allergies Allergy/AdvReac Type Severity Reaction Status Date / Time No Known Allergies Allergy Verified 05/31/17 11:40 Review of Systems ROS Statement: Those systems with pertinent positive or pertinent negative responses have been documented in the HPI. ROS Other: All systems not noted in ROS Statement are negative. Past Medical History Past Medical History: Hypertension, Thyroid Disorder History of Any Multi-Drug Resistant Organisms: None Reported Past Surgical History: Uterine Ablation Additional Past Surgical History / Comment(s): left sided thyroidectomy, knee sx Past Psychological History: Anxiety, Depression Smoking Status: Current every day smoker Past Alcohol Use History: Occasional Past Drug Use History: None Reported General Exam Limitations: no limitations Course Vital Signs 05/31/17 05/31/17 05/31/17 11:37 11:49 12:04 Temperature 98.0 F Pulse Rate 139 H 125 H 128 H Respiratory 18 Rate Blood Pressure 162/93 O2 Sat by Pulse 83 L Oximetry 05/31/17 05/31/17 05/31/17 12:13 13:10 13:43 Temperature Pulse Rate 93 88 124 H Respiratory Rate Blood Pressure 127/63 121/68 O2 Sat by Pulse 98 96 Oximetry 05/31/17 05/31/17 05/31/17 13:54 15:14 15:30 Temperature Pulse Rate 126 H 94 100 Respiratory Rate Blood Pressure O2 Sat by Pulse Oximetry EKG Findings - EKG Comments: EKG Findings:: EKG shows sinus tachycardia rate 121, IL 180, QRS 66, QTc 428 Medical Decision Making - Lab Data Result diagrams: 05/31/17 11:51 05/31/17 11:51 Lab Results 05/31/17 05/31/17 05/31/17 Range/Units 11:51 11:51 11:51 WBC 6.3 (3.8-10.6) k/uL RBC 4.70 (3.80-5.40) m/uL Hgb 16.0 (11.4-16.0) gm/dL Hct 45.4 (34.0-46.0) % MCV 96.6 (80.0-100.0) fL MCH 33.9 (25.0-35.0) pg MCHC 35.1 (31.0-37.0) g/dL RDW 12.7 (11.5-15.5) % Plt Count 307 (150-450) k/uL Neutrophils % 57 % Lymphocytes % 25 % Monocytes % 4 % Eosinophils % 10 % Basophils % 1 % Neutrophils # 3.6 (1.3-7.7) k/uL Lymphocytes # 1.6 (1.0-4.8) k/uL Monocytes # 0.3 (0-1.0) k/uL Eosinophils # 0.6 (0-0.7) k/uL Basophils # 0.1 (0-0.2) k/uL PT (9.0-12.0) sec INR (<1.2) APTT (22.0-30.0) sec Sodium 145 (137-145) mmol/L Potassium 4.1 (3.5-5.1) mmol/L Chloride 105 (98-107) mmol/L Carbon Dioxide 24 (22-30) mmol/L Anion Gap 16 mmol/L BUN 12 (7-17) mg/dL Creatinine 0.60 (0.52-1.04) mg/dL Est GFR (CKD-EPI)AfAm >90 (>60 ml/min/1.73 sqM) Est GFR (CKD-EPI)NonAf >90 (>60 ml/min/1.73 sqM) Glucose 96 (74-99) mg/dL Calcium 10.3 H (8.4-10.2) mg/dL Magnesium 1.4 L (1.6-2.3) mg/dL Total Bilirubin 0.7 (0.2-1.3) mg/dL AST 33 (14-36) U/L ALT 32 (9-52) U/L Alkaline Phosphatase 117 (38-126) U/L Total Creatine Kinase 164 H (30-135) U/L CK-MB (CK-2) 9.0 H* (0.0-2.4) ng/mL CK-MB (CK-2) Rel Index 5.5 Troponin I 0.023 (0.000-0.034) ng/mL NT-Pro-B Natriuret Pep pg/mL Total Protein 7.6 (6.3-8.2) g/dL Albumin 4.4 (3.5-5.0) g/dL 05/31/17 05/31/17 Range/Units 11:51 11:51 WBC (3.8-10.6) k/uL RBC (3.80-5.40) m/uL Hgb (11.4-16.0) gm/dL Hct (34.0-46.0) % MCV (80.0-100.0) fL MCH (25.0-35.0) pg MCHC (31.0-37.0) g/dL RDW (11.5-15.5) % Plt Count (150-450) k/uL Neutrophils % % Lymphocytes % % Monocytes % % Eosinophils % % Basophils % % Neutrophils # (1.3-7.7) k/uL Lymphocytes # (1.0-4.8) k/uL Monocytes # (0-1.0) k/uL Eosinophils # (0-0.7) k/uL Basophils # (0-0.2) k/uL PT 10.3 (9.0-12.0) sec INR 1.1 (<1.2) APTT 24.9 (22.0-30.0) sec Sodium (137-145) mmol/L Potassium (3.5-5.1) mmol/L Chloride (98-107) mmol/L Carbon Dioxide (22-30) mmol/L Anion Gap mmol/L BUN (7-17) mg/dL Creatinine (0.52-1.04) mg/dL Est GFR (CKD-EPI)AfAm (>60 ml/min/1.73 sqM) Est GFR (CKD-EPI)NonAf (>60 ml/min/1.73 sqM) Glucose (74-99) mg/dL Calcium (8.4-10.2) mg/dL Magnesium (1.6-2.3) mg/dL Total Bilirubin (0.2-1.3) mg/dL AST (14-36) U/L ALT (9-52) U/L Alkaline Phosphatase (38-126) U/L Total Creatine Kinase (30-135) U/L CK-MB (CK-2) (0.0-2.4) ng/mL CK-MB (CK-2) Rel Index Troponin I (0.000-0.034) ng/mL NT-Pro-B Natriuret Pep 413 pg/mL Total Protein (6.3-8.2) g/dL Albumin (3.5-5.0) g/dL Disposition Clinical Impression: Acute exacerbation of chronic obstructive airways disease, Hypoxia Disposition: ADMITTED IP TO THIS HOSP Condition: Good Referrals: Marquis Lua DO [Primary Care Provider] - 1-2 days
[2017-05-31 12:15] LABS: ALT 32 U/L (9-52); AST 33 U/L (14-36); Albumin 4.4 g/dL (3.5-5.0); Alkaline Phosphatase 117 U/L (38-126); Anion Gap 16 mmol/L; Blood Urea Nitrogen 12 mg/dL (7-17); Calcium 10.3 mg/dL (8.4-10.2); Carbon Dioxide 24 mmol/L (22-30); Chloride 105 mmol/L (98-107); Glucose 96 mg/dL (74-99); Magnesium 1.4 mg/dL (1.6-2.3); Potassium 4.1 mmol/L (3.5-5.1); Sodium 145 mmol/L (137-145); Total Bilirubin 0.7 mg/dL (0.2-1.3); Total Protein 7.6 g/dL (6.3-8.2)
[2017-05-31 12:17] LABS: INR 1.1 (<1.2); Partial Thromboplastin Time 24.9 sec (22.0-30.0); Prothrombin Time 10.3 sec (9.0-12.0)
[2017-05-31 12:43] LABS: Troponin I 0.023 ng/mL (0.000-0.034)
[2017-05-31] MEDS ORDERED: IPRATROPIUM-ALBUTEROL 3 ML NEB INHALATION STA (13:12)
--- NOTE | 2017-05-31 13:12 | XR ---
EXAMINATION TYPE: XR chest 2V DATE OF EXAM: 05/31/2017 HISTORY: difficulty breathing. REFERENCE: NONE. FINDINGS: The lungs are clear. Pleural space are clear. The heart is not enlarged. There is a ring ca lcified lesion within the spleen which is increasing described on a CT scan dated 05/07/2017 IMPRESSION: NO ACUTE INTRATHORACIC ABNORMALITY.
[2017-05-31] MEDS ORDERED: MAGNESIUM SULFATE-D5W PMX 1 GM in DEXTROSE/WATER 1 100ML.BAG IVPB ONE (14:05)
[2017-05-31] MEDS ORDERED: MAGNESIUM OXIDE 400 MG TAB PO STA (14:05)
[2017-05-31] MEDS ORDERED: methylPREDNISolone SOD SUCCI 125 MG/2 ML VIAL IV STA (14:05)
[2017-05-31] MEDS: IPRATROPIUM-ALBUTEROL 3 ML NEB INHALATION SCH ×2 (16:39→20:19)
[2017-05-31 16:59] VITALS: BMI 21.9
[2017-05-31] MEDS: methylPREDNISolone SOD SUCCI 125 MG/2 ML VIAL IV SCH ×2 (17:08→22:59)
[2017-05-31] MEDS: SODIUM CHLORIDE 0.9% 1,000 ML IV SCH ×2 (17:10→20:34)
[2017-05-31] MEDS ORDERED: ACETAMINOPHEN TAB 325 MG TAB PO PRN (19:02)
[2017-05-31] MEDS ORDERED: ALBUTEROL NEBULIZED 2.5 MG/3 ML INHALATION PRN (19:02)
[2017-05-31 20:09] LABS: Glucose,Whole Blood 252 mg/dL (75-99)
[2017-05-31] MEDS: INSULIN ASPART 100 UNIT/ML 1 ML 10 ML VIAL SQ SCH (20:35)
[2017-05-31] MEDS: ALPRAZolam 1 MG TAB PO PRN (23:00)
[2017-06-01] MEDS: methylPREDNISolone SOD SUCCI 125 MG/2 ML VIAL IV SCH ×3 (05:22→17:08)
[2017-06-01] MEDS: LEVOTHYROXINE 50 MCG TAB PO SCH (05:33)
[2017-06-01] MEDS: SODIUM CHLORIDE 0.9% 1,000 ML IV SCH (06:24)
[2017-06-01] MEDS: LOSARTAN 50 MG TAB PO SCH (07:56)
[2017-06-01] MEDS: ESCITALOPRAM 10 MG TAB PO SCH (07:56)
[2017-06-01] MEDS: AZITHROMYCIN 500 MG TAB PO SCH (07:56)
[2017-06-01] MEDS: INSULIN ASPART 100 UNIT/ML 1 ML 10 ML VIAL SQ SCH ×4 (07:57→21:34)
[2017-06-01 08:08] LABS: Glucose,Whole Blood 139 mg/dL (75-99)
[2017-06-01] MEDS: IPRATROPIUM-ALBUTEROL 3 ML NEB INHALATION SCH ×4 (08:46→19:43)
[2017-06-01 11:59] LABS: Glucose,Whole Blood 174 mg/dL (75-99)
[2017-06-01 17:16] LABS: Glucose,Whole Blood 137 mg/dL (75-99)
--- NOTE | 2017-06-01 19:06 | P.HPIM ---
History of Present Illness H&P Date: 05/31/17 Chief Complaint: Shortness of breath wheezing This is a pleasant 52-year-old lady patient of Dr. Lua. She has underlying history of hypertension chronic tobacco dependency and hypothyroidism admitted to the emergency room secondary to shortness of breath off 4 days duration. She has similar episodes one month ago for which she was sent home from the emergency room and got better, this time she has been sick for 4 days, she apparently has improved from her first bronchitis and wheezing episodes. She was hypoxemic when seen in the emergency room, tachypneic with tachycardia of 120, pulse ox an 83%, patient continues to smoke Emergency room, chest x-ray shows no acute intrathoracic abnormality, with clearing lesion calcified in the spleen, increasing as described from 2017 she required 3 treatments of albuterol, and was still hypoxemic and bronchospastic, she was subsequently admitted secondary to COPD exacerbation. Patient does not have any diagnosis off asthma in the past nor does she have atopy in the past patient denies any family history of asthma either just got 3 cats in the house, no assistive devices for ambulation, no nebulizer needs, no O2 requirements, Review of Systems Constitutional: Reports as per HPI, Reports chills, Denies anorexia, Denies chronic headaches, Denies chronic pain, Denies daytime sleepiness, Denies fatigue, Denies fever, Denies lethargy, Denies malaise, Denies night sweats, Denies poor appetite, Denies sweats, Denies weakness, Denies weight gain, Denies weight loss Ears, nose, mouth and throat: Reports as per HPI, Denies ant. neck pain, Denies bleeding gums, Denies dental pain, Denies dysphagia, Denies epistaxis, Denies headache, Denies hoarseness, Denies mouth pain, Denies nasal congestion, Denies nasal discharge, Denies neck fullness/pressure, Denies neck lump, Denies nose pain, Denies odynophagia, Denies post-nasal drip, Denies sinus pain, Denies sinus pressure, Denies swelling in mouth, Denies swelling in throat, Denies sore throat, Denies vertigo, Denies voice changes Cardiovascular: Reports as per HPI, Denies chest pain, Denies claudication, Denies decreased exercise tolerance, Denies dyspnea on exertion, Denies edema, Denies high blood pressure, Denies irregular heart beat, Denies leg edema, Denies lightheadedness, Denies orthopnea, Denies palpitations, Denies paroxysmal nocturnal dyspnea, Denies phlebitis, Denies rapid heart beat, Denies shortness of breath, Denies syncope Respiratory: Reports cough, Reports cough with sputum, Reports dyspnea, Reports wheezing Gastrointestinal: Reports as per HPI Genitourinary: Reports as per HPI Menstruation: Reports as per HPI Musculoskeletal: Reports as per HPI, Denies arm numbness/tingling, Denies atrophy, Denies fractures, Denies frequent falls, Denies gait dysfunction, Denies hot joints, Denies leg numbness/tingling, Denies limitation of motion, Denies loss of height, Denies low back pain, Denies morning stiffness, Denies muscle cramps, Denies muscle weakness, Denies myalgias, Denies neck pain, Denies neck stiffness, Denies prior amputations, Denies redness of joints, Denies shooting arm pain, Denies shooting leg pain Neurological: Reports as per HPI, Denies aphasia, Denies ataxia, Denies balance difficulties, Denies burning pain, Denies change in mentation, Denies change in smell/taste, Denies change in speech, Denies confusion, Denies convulsions, Denies double vision, Denies gait dysfunction, Denies head injury, Denies headaches, Denies hearing difficulties, Denies lack of coordination, Denies loss of vision, Denies memory loss, Denies migraines, Denies motor disturbance, Denies numbness, Denies paralysis, Denies paresthesias, Denies seizures, Denies sensory deficit, Denies spasticity, Denies syncope, Denies tic, Denies tingling , Denies transient paralysis, Denies tremors, Denies vertigo, Denies weakness, Denies visual changes Psychiatric: Reports as per HPI, Denies anhedonia, Denies anxiety, Denies anxiety attacks, Denies change in appetite, Denies change in libido, Denies change in sleep habits, Denies confusion, Denies depression, Denies difficulty concentrating, Denies disorientation, Denies hallucinations, Denies hopelessness , Denies hypersomnia, Denies insomnia, Denies irritability, Denies memory loss, Denies mood swings, Denies paranoia, Denies sadness/tearfulness, Denies sleep disturbances, Denies suicidal ideation Endocrine: Reports as per HPI, Denies cold intolerance, Denies deepening of the voice, Denies excessive sweating, Denies excessive thirst, Denies fatigue, Denies flushing, Denies heat intolerance, Denies high blood sugars, Denies increase in ring/shoe/hat size, Denies low blood sugars, Denies nocturia, Denies palpitations, Denies polydipsia, Denies polyphagia, Denies polyuria, Denies proptosis, Denies recent glucocorticoid use, Denies thyroid mass, Denies weight change Hematologic/Lymphatic: Reports as per HPI, Denies easy bleeding, Denies easy bruising, Denies lymphadenopathy, Denies lymphedema, Denies thrombophilia Allergic/Immunologic: Reports as per HPI, Denies allergic rhinitis, Denies anaphylaxis, Denies angioedema, Denies gluten intolerance, Denies persistent infections, Denies seasonal allergies, Denies urticaria, Denies wheezing Past Medical History Past Medical History: Hypertension, Thyroid Disorder History of Any Multi-Drug Resistant Organisms: None Reported Past Surgical History: Uterine Ablation Additional Past Surgical History / Comment(s): Left sided thyroidectomy, knee surgery Past Anesthesia/Blood Transfusion Reactions: No Reported Reaction Past Psychological History: Anxiety, Depression Smoking Status: Current every day smoker Past Alcohol Use History: Occasional Past Drug Use History: None Reported - Past Family History Father Family Medical History: Cancer (Skin cancer), Diabetes Mellitus Mother Family Medical History: Dementia Additional Family Medical History / Comment(s): One brother healthy 2 sisters healthy one daughter healthy one son healthy Medications and Allergies Home Medications Medication Instructions Recorded Confirmed Type Escitalopram [Lexapro] 10 mg PO DAILY 10/15/16 05/31/17 History Levothyroxine Sodium [Synthroid] 50 mcg PO DAILY 10/15/16 05/31/17 History Losartan [Cozaar] 50 mg PO DAILY 05/07/17 05/31/17 History ALPRAZolam [Xanax] 1 mg PO TID PRN 05/31/17 05/31/17 History Allergies Allergy/AdvReac Type Severity Reaction Status Date / Time No Known Allergies Allergy Verified 05/31/17 16:15 Physical Exam Vitals: Vital Signs Temp Pulse Pulse Pulse Resp BP BP 05/31/17 16:47 97.4 F L 95 18 05/31/17 16:26 97.1 F L 103 H 22 136/72 05/31/17 16:16 97.4 F L 101 H 16 133/66 05/31/17 15:30 100 05/31/17 15:14 94 05/31/17 15:10 88 127/62 05/31/17 13:54 126 H 05/31/17 13:43 124 H 05/31/17 13:10 88 121/68 05/31/17 12:13 93 127/63 05/31/17 12:04 128 H 05/31/17 11:49 125 H 05/31/17 11:37 98.0 F 139 H 18 162/93 BP Pulse Ox 05/31/17 16:47 133/66 95 05/31/17 16:26 97 05/31/17 16:16 95 05/31/17 15:30 05/31/17 15:14 05/31/17 15:10 94 L 05/31/17 13:54 05/31/17 13:43 05/31/17 13:10 96 05/31/17 12:13 98 05/31/17 12:04 05/31/17 11:49 05/31/17 11:37 83 L Intake and Output 05/31/17 05/31/17 05/31/17 06:59 14:59 22:59 Other: Weight 61.235 kg 61.5 kg - Constitutional General appearance: cooperative, mild distress - EENT Eyes: anicteric sclerae, EOMI, dentition normal, normal appearance ENT: NA/AT, normal oropharynx - Neck Neck: no lymphadenopathy, normal ROM, no other, no rigidity, no stridor, no thyromegaly - Respiratory Respiratory: bilateral: diminished, prolonged expiration, negative: CTA, dullness, rales, rhonchi, wheezing, prolonged inspiration, other - Cardiovascular Rhythm: regular Heart sounds: normal: S1, S2 Abnormal Heart Sounds: systolic murmur, diastolic murmur, no rub, no S3 Gallop, no S4 Gallop, no click, no other - Gastrointestinal General gastrointestinal: normal bowel sounds, soft - Integumentary Integumentary: normal, normal turgor - Neurologic Neurologic: CNII-XII intact - Musculoskeletal Musculoskeletal: gait normal, strength equal bilaterally - Psychiatric Psychiatric: A&O x's 3, appropriate affect, intact judgment & insight Results CBC & Chem 7: 05/31/17 11:51 05/31/17 11:51 Labs: Abnormal Lab Results - Last 24 Hours (Table) 05/31/17 05/31/17 Range/Units 11:51 11:51 Calcium 10.3 H (8.4-10.2) mg/dL Magnesium 1.4 L (1.6-2.3) mg/dL Total Creatine Kinase 164 H (30-135) U/L CK-MB (CK-2) 9.0 H* (0.0-2.4) ng/mL Laboratory Results WBC 6.3 k/uL (3.8-10.6) 05/31/17 11:51 RBC 4.70 m/uL (3.80-5.40) 05/31/17 11:51 Hgb 16.0 gm/dL (11.4-16.0) 05/31/17 11:51 Hct 45.4 % (34.0-46.0) 05/31/17 11:51 MCV 96.6 fL (80.0-100.0) 05/31/17 11:51 MCH 33.9 pg (25.0-35.0) 05/31/17 11:51 MCHC 35.1 g/dL (31.0-37.0) 05/31/17 11:51 RDW 12.7 % (11.5-15.5) 05/31/17 11:51 Plt Count 307 k/uL (150-450) 05/31/17 11:51 Neutrophils % 57 % 05/31/17 11:51 Lymphocytes % 25 % 05/31/17 11:51 Monocytes % 4 % 05/31/17 11:51 Eosinophils % 10 % 05/31/17 11:51 Basophils % 1 % 05/31/17 11:51 Neutrophils # 3.6 k/uL (1.3-7.7) 05/31/17 11:51 Lymphocytes # 1.6 k/uL (1.0-4.8) 05/31/17 11:51 Monocytes # 0.3 k/uL (0-1.0) 05/31/17 11:51 Eosinophils # 0.6 k/uL (0-0.7) 05/31/17 11:51 Basophils # 0.1 k/uL (0-0.2) 05/31/17 11:51 PT 10.3 sec (9.0-12.0) 05/31/17 11:51 INR 1.1 (<1.2) 05/31/17 11:51 APTT 24.9 sec (22.0-30.0) 05/31/17 11:51 Sodium 145 mmol/L (137-145) 05/31/17 11:51 Potassium 4.1 mmol/L (3.5-5.1) 05/31/17 11:51 Chloride 105 mmol/L (98-107) 05/31/17 11:51 Carbon Dioxide 24 mmol/L (22-30) 05/31/17 11:51 Anion Gap 16 mmol/L 05/31/17 11:51 BUN 12 mg/dL (7-17) 05/31/17 11:51 Creatinine 0.60 mg/dL (0.52-1.04) 05/31/17 11:51 Est GFR (CKD-EPI)AfAm >90 (>60 ml/min/1.73 sqM) 05/31/17 11:51 Est GFR (CKD-EPI)NonAf >90 (>60 ml/min/1.73 sqM) 05/31/17 11:51 Glucose 96 mg/dL (74-99) 05/31/17 11:51 POC Glucose (mg/dL) 137 mg/dL (75-99) H 06/01/17 17:04 POC Glu [place] Deputy GLENNA Nereida Rosales 06/01/17 17:04 Calcium 10.3 mg/dL (8.4-10.2) H 05/31/17 11:51 Magnesium 1.4 mg/dL (1.6-2.3) L 05/31/17 11:51 Total Bilirubin 0.7 mg/dL (0.2-1.3) 05/31/17 11:51 AST 33 U/L (14-36) 05/31/17 11:51 ALT 32 U/L (9-52) 05/31/17 11:51 Alkaline Phosphatase 117 U/L (38-126) 05/31/17 11:51 Total Creatine Kinase 164 U/L (30-135) H 05/31/17 11:51 CK-MB (CK-2) 9.0 ng/mL (0.0-2.4) H* 05/31/17 11:51 CK-MB (CK-2) Rel Index 5.5 05/31/17 11:51 Troponin I 0.023 ng/mL (0.000-0.034) 05/31/17 11:51 NT-Pro-B Natriuret Pep 413 pg/mL 05/31/17 11:51 Total Protein 7.6 g/dL (6.3-8.2) 05/31/17 11:51 Albumin 4.4 g/dL (3.5-5.0) 05/31/17 11:51 Thrombosis Risk Factor Assmnt - DVT/VTE Prophylaxis DVT/VTE Prophylaxis: Low risk, early ambulation encouraged - Choose All That Apply Each Factor Represents 1 point: Age 41-60 years Thrombosis Risk Factor Assessment Total Risk Factor Score: 1 Thrombosis Risk Factor Assessment Level: Low Risk Assessment and Plan Plan: 1. Acute hypoxemic respiratory failure secondary to COPD exacerbation, no known history of asthma, patient currently is on soluMedrol 60 mg every 6 hours , nebulized albuterol and Atrovent, and O2 supplementation, patient would need ambulatory pulse ox on room air prior to discharge 2. COPD exacerbation, she has recurrent episodes within the past 4 weeks, Exposure no known history of atopy or asthma, continue nebulized treatments, Solu-Medrol, oral tapering prednisone on discharge, patient would need to quit smoking permanently, consult with Dr. Oates/River Deshpande from pulmonary medicine 2. Purulent tracheobronchitis, we will attempt to obtain sputum culture, monitor for pneumonic infiltrates, 3. Chemical induced hyperglycemia, on Solu-Medrol, and sliding scale insulin coverage monitor for hemoglobin A1c 4. Hypothyroidism, patient has tachycardia TSH will be obtained 50 g daily 5. Sinus tachycardia was likely secondary to nebulized steroids, 6. Hypertension, on maintenance losartan 50 mg daily 7. Anxiety, on Xanax 1 mg 3 times a day when necessary 8. Dysthymia on Lexapro 10 mg daily 9 Calcified lesion in the spleen, continued for surveillance as outpatient DVT prophylaxis, low risk, early ambulation and GI prophylaxis Pepcid
--- NOTE | 2017-06-01 19:11 | P.PN ---
Subjective Progress Note Date: 06/01/17 Principal diagnosis: COPD exacerbation with hypoxemia This is a pleasant 52-year-old lady patient of Dr. Lua. She has underlying history of hypertension chronic tobacco dependency and hypothyroidism admitted to the emergency room secondary to shortness of breath off 4 days duration. She has similar episodes one month ago for which she was sent home from the emergency room and got better, this time she has been sick for 4 days, she apparently has improved from her first bronchitis and wheezing episodes. She was hypoxemic when seen in the emergency room, tachypneic with tachycardia of 120, pulse ox an 83%, patient continues to smoke Emergency room, chest x-ray shows no acute intrathoracic abnormality, with clearing lesion calcified in the spleen, increasing as described from 2017 she required 3 treatments of albuterol, and was still hypoxemic and bronchospastic, she was subsequently admitted secondary to COPD exacerbation. Patient does not have any diagnosis off asthma in the past nor does she have atopy in the past patient denies any family history of asthma either just got 3 cats in the house, no assistive devices for ambulation, no nebulizer needs, no O2 requirements, 06/01: Patient's doing better, less dyspneic, Solu-Medrol is at 60 mg every 6 hours, nebulized albuterol, hypoxemia has improved, no chest pain no pleurisy, sputum is clearing out, still requiring oxygen at 2 L is a cannula Objective - Vital Signs Vital signs: Vital Signs Temp 98.6 F 06/01/17 15:10 Pulse 110 H 06/01/17 16:34 Resp 16 06/01/17 16:00 BP 116/68 06/01/17 15:10 Pulse Ox 93 L 06/01/17 15:10 Intake & Output 06/01/17 06/01/17 06/02/17 06:59 18:59 06:59 Intake Total 900 2460 Balance 900 2460 Weight 61.5 kg Intake: Intake, IV Titration 900 600 Amount Sodium Chloride 0.9% 1, 900 000 ml @ 100 mls/hr IV . Q10H JAZMIN Rx#:[id number] Sodium Chloride 0.9% 1, 600 000 ml @ 100 mls/hr IV . Q10H STA Rx#:[id number] Oral 1860 Other: Voiding Method Toilet Toilet # Voids 1 3 - Constitutional General appearance: Present: cooperative, no acute distress - EENT Eyes: Present: anicteric sclerae, EOMI, PERRLA, dentition normal, normal appearance ENT: Present: NA/AT, normal oropharynx - Neck Neck: Present: normal ROM - Respiratory Respiratory: bilateral: diminished, wheezing, negative: dullness, rales, rhonchi , prolonged expiration, prolonged inspiration, other - Cardiovascular Rhythm: regular - Gastrointestinal General gastrointestinal: Present: normal bowel sounds, soft - Integumentary Integumentary: Present: normal turgor - Neurologic Neurologic: Present: CNII-XII intact - Psychiatric Psychiatric: Present: A&O x's 3, appropriate affect, intact judgment & insight - Labs CBC & Chem 7: 05/31/17 11:51 05/31/17 11:51 Labs: Abnormal Lab Results - Last 24 Hours (Table) 05/31/17 06/01/17 06/01/17 Range/Units 20:08 07:42 11:54 POC Glucose (mg/dL) 252 H 139 H 174 H (75-99) mg/dL 06/01/17 Range/Units 17:04 POC Glucose (mg/dL) 137 H (75-99) mg/dL Assessment and Plan Plan: 1. Acute hypoxemic respiratory failure secondary to COPD exacerbation, no known history of asthma, patient currently is on soluMedrol 60 mg every 6 hours , nebulized albuterol and Atrovent, and O2 supplementation, patient would need ambulatory pulse ox on room air prior to discharge 2. COPD exacerbation, she has recurrent episodes within the past 4 weeks, Exposure no known history of atopy or asthma, continue nebulized treatments, Solu-Medrol, oral tapering prednisone on discharge, patient would need to quit smoking permanently, consult with Dr. Jimbo Deshpande from pulmonary medicine 2. Purulent tracheobronchitis, we will attempt to obtain sputum culture, monitor for pneumonic infiltrates, 3. Chemical induced hyperglycemia, on Solu-Medrol, and sliding scale insulin coverage monitor for hemoglobin A1c 4. Hypothyroidism, patient has tachycardia TSH will be obtained 50 g daily 5. Sinus tachycardia was likely secondary to nebulized steroids, check TSH\ 6. Tobacco dependency, patient was highly educated regarding ill effects off chronic tobacco use, patient is not committed to smoking cessation program 6. Hypertension, on maintenance losartan 50 mg daily 7. Anxiety, on Xanax 1 mg 3 times a day when necessary 8. Dysthymia on Lexapro 10 mg daily 9 Calcified lesion in the spleen, continued for surveillance as outpatient DVT prophylaxis, low risk, early ambulation and GI prophylaxis Pepcid
[2017-06-01 20:40] LABS: Glucose,Whole Blood 278 mg/dL (75-99)
[2017-06-01] MEDS ORDERED: MONTELUKAST 10 MG TAB PO SCH (21:00)
[2017-06-01] MEDS: HEPARIN SODIUM,PORCINE 5,000 UNIT/ML 1 ML VIAL SQ SCH (21:34)
[2017-06-01] MEDS: FAMOTIDINE 20 MG TAB PO SCH (21:34)
--- NOTE | 2017-06-01 22:30 | CONS ---
CONSULTATION Steffanie Morgan is a 52-year-old female who presented to the ED at [facility] with increasing shortness of breath. This has been associated with wheezing. No clear fever or chills. She was seen in the ED on May 31, but prior to that on May 07 as well. At that time she had similar complaints. She was treated with antibiotics and steroids. She comes in, was hypoxic at only 83%. She has been admitted to the hospital and remained somewhat tachycardic. She continues to have cough with wheezing. PAST MEDICAL HISTORY: Is negative for a previous remote history of asthma or COPD. She has been prescribed inhalers for asthma or COPD only within the last few weeks. Past medical history is positive for left-sided thyroid nodule status post left-sided thyroidectomy. She is on thyroid replacement. History of anxiety, depression. 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 The patient is a smoker about half pack of cigarettes per day. FAMILY HISTORY: Family history is positive for asthma in her son. REVIEW OF SYSTEMS: Noncontributory. Patient does have 2 cats at home. AT HOME MEDICATIONS: Medications prior to admission were alprazolam, losartan, Synthroid, Escitalopram. PHYSICAL EXAMINATION: Her respiratory rate is 18, pulse rate of 117, O2 saturation on 3 L by nasal cannula is 94%, on room air her O2 saturation was only 83% with a heart rate of 139 at that time. HEENT was pupils are equal. There is no jugular venous distention. Chest reveals decreased breath sounds with prolonged expiration. There is bilateral expiratory wheeze. Cardiovascular system was S1, S2. ABDOMEN: Soft. There is no pedal edema. Eosinophils are 10% with an absolute eosinophil count of 0.6 1000. On May 07 2017, her eosinophil count was only 0.1 1000. Chest x-ray shows no discrete infiltrate. Hemoglobin is 16. Sodium 145, potassium 4.1, chloride 105, bicarb 24, BUN 12, creatinine 0.6, glucose is 278, calcium is slightly high at 10.3, free T4 is normal at 1.59, but TSH is low at 0.3988. CK is 164 with an MB of 9. Troponin is 0.023. IMPRESSION: At this time. 1. Asthma with acute exacerbation is likely. 2. Possible chronic obstructive pulmonary disease. 3. Tachycardia in part due to hyperthyroidism, which may be iatrogenic based on her Synthroid dose, which may need to be reduced as her TSH is low. 4. Previous thyroidectomy. 5. Nicotine dependence. At this point in time, we would keep the patient on GI and DVT prophylaxis. Keep her on bronchodilators and aerosolized steroids. Keep her on montelukast and IV steroids. Have the patient seen by Cardiology because of ongoing tachycardia and borderline troponin and CK. Her prognosis at this time is guarded. She was counseled regarding her condition and our approach. Because of eosinophilia, once she is on anti asthmatic medications including inhaled steroids, leukotriene receptor antagonist, if she remains uncontrolled, she may benefit from anti eosinophilic treatment or anti IgE treatment with a biologic. We ordered alpha-1 antitrypsin phenotype as well as an allergy profile on her. Depending on how she does we should make further changes to her care. MMHANSEL / LUIS: [id number] /
[2017-06-01] MEDS: ALPRAZolam 1 MG TAB PO PRN (22:39)
[2017-06-01 23:33] LABS: Hemoglobin A1C 4.7 % (4.0-6.0)
[2017-06-02] MEDS: methylPREDNISolone SOD SUCCI 125 MG/2 ML VIAL IV SCH ×2 (00:20→06:08)
[2017-06-02] MEDS: LEVOTHYROXINE 50 MCG TAB PO SCH (06:08)
[2017-06-02] MEDS: IPRATROPIUM-ALBUTEROL 3 ML NEB INHALATION SCH ×3 (06:43→15:29)
[2017-06-02] MEDS: INSULIN ASPART 100 UNIT/ML 1 ML 10 ML VIAL SQ SCH ×2 (07:39→13:05)
[2017-06-02 07:59] LABS: Glucose,Whole Blood 107 mg/dL (75-99)
[2017-06-02] MEDS ORDERED: BUDESONIDE 0.5 MG/2 ML NEBU INHALATION SCH (08:00)
[2017-06-02 08:04] LABS: Anion Gap 8 mmol/L; Blood Urea Nitrogen 19 mg/dL (7-17); Calcium 9.4 mg/dL (8.4-10.2); Carbon Dioxide 27 mmol/L (22-30); Chloride 108 mmol/L (98-107); Glucose 97 mg/dL (74-99); Potassium 3.9 mmol/L (3.5-5.1); Sodium 143 mmol/L (137-145)
[2017-06-02 08:15] VITALS: RESP 16
[2017-06-02 08:21] LABS: Basophils % (A) 0 %; Eosinophils % (A) 0 %; HCT 37.6 % (34.0-46.0); HGB 13.1 gm/dL (11.4-16.0); Lymphocytes # (A) 1.1 k/uL (1.0-4.8); Lymphocytes % (A) 9 %; MCH 34.1 pg (25.0-35.0); MCHC 34.9 g/dL (31.0-37.0); MCV 97.5 fL (80.0-100.0); Monocytes # (A) 0.5 k/uL (0-1.0); Monocytes % (A) 4 %; Neutrophils # (A) 10.7 k/uL (1.3-7.7); Neutrophils % (A) 87 %; Platelet Count 263 k/uL (150-450); RBC 3.86 m/uL (3.80-5.40); RDW 12.8 % (11.5-15.5); WBC 12.3 k/uL (3.8-10.6)
[2017-06-02] MEDS: HEPARIN SODIUM,PORCINE 5,000 UNIT/ML 1 ML VIAL SQ SCH ×2 (08:46→08:49)
[2017-06-02] MEDS: ESCITALOPRAM 10 MG TAB PO SCH (08:47)
[2017-06-02] MEDS: FAMOTIDINE 20 MG TAB PO SCH (08:47)
[2017-06-02] MEDS: LOSARTAN 50 MG TAB PO SCH (08:47)
[2017-06-02] MEDS: AZITHROMYCIN 500 MG TAB PO SCH (08:47)
--- NOTE | 2017-06-02 10:03 | P.PN ---
<Nereida Ryder E - Last Filed: 06/02/17 09:55> Subjective Progress Note Date: 06/02/17 HPI: Patient is a 52-year-old female who presented to the emergency room [facility] with increasing shortness of breath. She has been associated with wheezing as well. She has no fevers or chills. She was seen in the emergency room on May 31 and prior to that on May 07 as well for this similar complaints. She was treated with antibiotics and steroids at that time. She comes in with hypoxia and was only 83% on room air. She is admitted to the hospital and remained somewhat tachycardic. She continues to have cough with wheezing. The patient has no remote history of asthma or COPD however has been prescribed inhalers for asthma and COPD in the last few weeks. She has never been worked up with a pulmonary function test. Interval history: 06/02/17-patient being seen examined and evaluated today on rounds. Patient is resting up in bed on room air. Previously she was on 2 L of supplemental oxygen yesterday. She has been doing peak flow monitoring and her last one was 220. She feels her breathing has continued to improved and feels close to baseline. She does sometimes get short of breath with exertion. Has a cough that is nonproductive at this time. Of note she previously was a smoker for 20 years approximately 1 pack per day and quit smoking last week. Objective - Vital Signs Vital signs: Vital Signs Temp 97.7 F 06/02/17 07:37 Pulse 78 06/02/17 09:15 Resp 16 06/02/17 07:37 BP 130/83 06/02/17 07:37 Pulse Ox 95 06/02/17 09:15 Intake & Output 06/01/17 06/02/17 06/02/17 18:59 06:59 18:59 Intake Total 2460 240 Balance 2460 240 Intake: Intake, IV Titration 600 Amount Sodium Chloride 0.9% 1, 600 000 ml @ 100 mls/hr IV . Q10H STA Rx#:[id number] Oral 1860 240 Other: Voiding Method Toilet Toilet Toilet # Voids 3 1 - Exam GENERAL EXAM: Alert, active, comfortable in no apparent distress. HEAD: Normocephalic. EYES: Normal reaction of pupils, equal size. NOSE: Clear with pink turbinates. THROAT: No erythema or exudates. NECK: No masses, no JVD. CHEST: No chest wall deformity. LUNGS: Equal air entry with no crackles, wheeze, rhonchi or dullness. Bases diminished CVS: S1 and S2 normal with no audible mumurs, regular rhythm. ABDOMEN: No hepatosplenomegaly, normal bowel sounds, no guarding or rigidity. EXTREMITIES: No edema noted, pedal pulses palpable. CENTRAL NERVOUS SYSTEM: No focal deficits, tone is normal in all 4 extremities. - Labs CBC & Chem 7: 06/02/17 06:59 06/02/17 06:59 Labs: Abnormal Lab Results - Last 24 Hours (Table) 06/01/17 06/01/17 06/01/17 Range/Units 11:54 17:04 20:39 WBC (3.8-10.6) k/uL Neutrophils # (1.3-7.7) k/uL Chloride (98-107) mmol/L BUN (7-17) mg/dL POC Glucose (mg/dL) 174 H 137 H 278 H (75-99) mg/dL 06/02/17 06/02/17 06/02/17 Range/Units 06:59 06:59 07:38 WBC 12.3 H (3.8-10.6) k/uL Neutrophils # 10.7 H (1.3-7.7) k/uL Chloride 108 H (98-107) mmol/L BUN 19 H (7-17) mg/dL POC Glucose (mg/dL) 107 H (75-99) mg/dL Assessment and Plan Assessment: Assessment Asthma with acute exacerbation is likely, baseline asthma status unknown Possible COPD Tachycardia in part to hypothyroidism Previous thyroidectomy Nicotine dependence Eosinophilia with a possible ALLERGIC asthma component Plan Medications have been reviewed and will be continued as ordered. Steroids have been switched from IV over to oral. Continue with Singulair. Cardiology on consult as adjusting cardiac meds with her tachycardia and borderline troponin and CK. Eosinophilia treatment or anti-IgE treatment with the biologic has been discussed with the patient in regards to elevated eosinophil count. PFT will be arranged outpatient. Alpha I antitrypsin phenotype is pending. ALLERGY panel is pending. Continue with pulmonary hygiene, coughing and deep breathing exercises, and supportive care. Supplemental oxygen to maintain oxygen saturations of 92% or better as needed. Continue nebulizer treatments. Smoking cessation discussed at length. GI and DVT prophylaxis. We will continue to monitor labs/results and adjust treatment as necessary. Further recommendations pending. I performed an examination of the patient and discussed their management with the nurse practitioner. I have reviewed the nurse practitioner's note and agree with the documented findings and plan of care. <Candis Jackson - Last Filed: 06/02/17 13:00> Objective - Vital Signs Vital signs: Vital Signs Temp 97.7 F 06/02/17 07:37 Pulse 82 06/02/17 11:09 Resp 16 06/02/17 07:37 BP 130/83 06/02/17 07:37 Pulse Ox 95 06/02/17 09:15 Intake & Output 06/01/17 06/02/17 06/02/17 18:59 06:59 18:59 Intake Total 2460 240 Balance 2460 240 Intake: Intake, IV Titration 600 Amount Sodium Chloride 0.9% 1, 600 000 ml @ 100 mls/hr IV . Q10H STA Rx#:[id number] Oral 1860 240 Other: Voiding Method Toilet Toilet Toilet # Voids 3 1 - Labs CBC & Chem 7: 06/02/17 06:59 06/02/17 06:59 Labs: Abnormal Lab Results - Last 24 Hours (Table) 06/01/17 06/01/17 06/02/17 Range/Units 17:04 20:39 06:59 WBC 12.3 H (3.8-10.6) k/uL Neutrophils # 10.7 H (1.3-7.7) k/uL Chloride (98-107) mmol/L BUN (7-17) mg/dL POC Glucose (mg/dL) 137 H 278 H (75-99) mg/dL 06/02/17 06/02/17 Range/Units 06:59 07:38 WBC (3.8-10.6) k/uL Neutrophils # (1.3-7.7) k/uL Chloride 108 H (98-107) mmol/L BUN 19 H (7-17) mg/dL POC Glucose (mg/dL) 107 H (75-99) mg/dL Assessment and Plan Assessment: Ok to DC from pulmonary standpoint. Outpatient work up for asthma, PFT. Awaiting allergy panel, IgE. Smoking cessation. Follow up 1-2 weeks. ~Candis Jackson DO
[2017-06-02 11:25] LABS: Glucose,Whole Blood 96 mg/dL (75-99)
--- NOTE | 2017-06-02 12:02 | ECHOF ---
Referral Reason:sob MEASUREMENTS -------- HEIGHT: 167.6 cm WEIGHT: 63.0 kg BP: 130/83 RVIDd: 2.4 cm (< 3.3) IVSd: 0.9 cm (0.6 - 1.1) LVIDd: 4.4 cm (3.9 - 5.3) LVPWd: 1.1 cm (0.6 - 1.1) IVSs: 1.6 cm LVIDs: 2.9 cm LVPWs: 1.5 cm LA Diam: 2.9 cm (2.7 - 3.8) LAESV Index (A-L): 25.32 ml/m Ao Diam: 3.3 cm (2.0 - 3.7) AV Cusp: 2.1 cm (1.5 - 2.6) MV EXCURSION: 19.740 mm (> 18.000) MV EF SLOPE: 107 mm/s (70 - 150) EPSS: 0.6 cm MV E Linden: 0.97 m/s MV DecT: 242 ms MV A Linden: 1.03 m/s MV E/A Ratio: 0.94 RAP: 5.00 mmHg RVSP: 25.57 mmHg FINDINGS -------- Sinus rhythm. This was a technically good study. The left ventricular size is normal. Left ventricular wall thickness is normal. Overall left vent ricular systolic function is normal with, an EF between 60 - 65 %. The right ventricle is normal in size. Normal LA size by volume 22+/-6 ml/m2. The right atrium is normal in size. The aortic valve is trileaflet and appears structurally normal. The mitral valve leaflets are mildly thickened. Mild mitral annular calcification present. Mild tricuspid regurgitation present. Right ventricular systolic pressure is normal at < 35 mmHg. The pulmonic valve was not well visualized. The aortic root size is normal. Normal inferior vena cava with normal inspiratory collapse consistent with estimated right atrial pre ssure of 5 mmHg. The inferior vena cava is mildly dilated. There is no pericardial effusion. CONCLUSIONS -------- 1. Sinus rhythm. 2. This was a technically good study. 3. The left ventricular size is normal. 4. Left ventricular wall thickness is normal. 5. Overall left ventricular systolic function is normal with, an EF between 60 - 65 %. 6. The right ventricle is normal in size. 7. Normal LA size by volume 22+/-6 ml/m2. 8. The right atrium is normal in size. 9. The aortic valve is trileaflet and appears structurally normal. 10. The mitral valve leaflets are mildly thickened. 11. Mild mitral annular calcification present. 12. Mild tricuspid regurgitation present. 13. Right ventricular systolic pressure is normal at < 35 mmHg. 14. The pulmonic valve was not well visualized. 15. The aortic root size is normal. 16. Normal inferior vena cava with normal inspiratory collapse consistent with estimated right atrial pressure of 5 mmHg. 17. The inferior vena cava is mildly dilated. 18. There is no pericardial effusion. MANAGER LPN: Tatiana Vazquez RDCS
--- NOTE | 2017-06-02 12:45 | P.PN ---
Subjective COPD exacerbation with hypoxemia This is a pleasant 52-year-old lady patient of Dr. Lua. She has underlying history of hypertension chronic tobacco dependency and hypothyroidism admitted to the emergency room secondary to shortness of breath off 4 days duration. She has similar episodes one month ago for which she was sent home from the emergency room and got better, this time she has been sick for 4 days, she apparently has improved from her first bronchitis and wheezing episodes. She was hypoxemic when seen in the emergency room, tachypneic with tachycardia of 120, pulse ox an 83%, patient continues to smoke Emergency room, chest x-ray shows no acute intrathoracic abnormality, with clearing lesion calcified in the spleen, increasing as described from 2017 she required 3 treatments of albuterol, and was still hypoxemic and bronchospastic, she was subsequently admitted secondary to COPD exacerbation. Patient does not have any diagnosis off asthma in the past nor does she have atopy in the past patient denies any family history of asthma either just got 3 cats in the house, no assistive devices for ambulation, no nebulizer needs, no O2 requirements, 06/01: Patient's doing better, less dyspneic, Solu-Medrol is at 60 mg every 6 hours, nebulized albuterol, hypoxemia has improved, no chest pain no pleurisy, sputum is clearing out, still requiring oxygen at 2 L is a cannula 06/02: Patient was evaluated today, she reports she is feeling better. She had a slight increase in her CK, troponins have been negative x2. Echocardiogram completed, shows EF 60-65%. She denies any chest pain, cardiology is on consult. IV steroids have been switched to oral, pulmonary on consult. Will continue with current treatment, if cleared by cardiology, will most likely be discharged home later today or early tomorrow. Objective - Vital Signs Vital signs: Vital Signs Temp 97.7 F 06/02/17 07:37 Pulse 82 06/02/17 11:09 Resp 16 06/02/17 07:37 BP 130/83 06/02/17 07:37 Pulse Ox 95 06/02/17 09:15 Intake & Output 06/01/17 06/02/17 06/02/17 18:59 06:59 18:59 Intake Total 2460 240 Balance 2460 240 Intake: Intake, IV Titration 600 Amount Sodium Chloride 0.9% 1, 600 000 ml @ 100 mls/hr IV . Q10H STA Rx#:[id number] Oral 1860 240 Other: Voiding Method Toilet Toilet Toilet # Voids 3 1 - Exam - Constitutional General appearance: Present: cooperative, no acute distress - EENT Eyes: Present: anicteric sclerae, EOMI, PERRLA, dentition normal, normal appearance ENT: Present: NA/AT, normal oropharynx - Neck Neck: Present: normal ROM - Respiratory Respiratory: bilateral: diminished, wheezing, negative: dullness, rales, rhonchi , prolonged expiration, prolonged inspiration negative - Cardiovascular Rhythm: regular - Gastrointestinal General gastrointestinal: Present: normal bowel sounds, soft - Integumentary Integumentary: Present: normal turgor - Neurologic Neurologic: Present: CNII-XII intact - Psychiatric Psychiatric: Present: A&O x's 3, appropriate affect, intact judgment & insight - Labs CBC & Chem 7: 06/02/17 06:59 06/02/17 06:59 Labs: Abnormal Lab Results - Last 24 Hours (Table) 06/01/17 06/01/17 06/02/17 Range/Units 17:04 20:39 06:59 WBC 12.3 H (3.8-10.6) k/uL Neutrophils # 10.7 H (1.3-7.7) k/uL Chloride (98-107) mmol/L BUN (7-17) mg/dL POC Glucose (mg/dL) 137 H 278 H (75-99) mg/dL 06/02/17 06/02/17 Range/Units 06:59 07:38 WBC (3.8-10.6) k/uL Neutrophils # (1.3-7.7) k/uL Chloride 108 H (98-107) mmol/L BUN 19 H (7-17) mg/dL POC Glucose (mg/dL) 107 H (75-99) mg/dL Assessment and Plan Plan: 1. Acute hypoxemic respiratory failure secondary to COPD exacerbation, no known history of asthma, patient was on soluMedrol 60 mg every 6 hours, now switched to oral prednisone 60mg dialy, nebulized albuterol and Atrovent, and O2 supplementation, patient would need ambulatory pulse ox on room air prior to discharge 2. COPD exacerbation, she has recurrent episodes within the past 4 weeks, Exposure no known history of atopy or asthma, continue nebulized treatments, prednisone, oral tapering prednisone on discharge, patient would need to quit smoking permanently, consult with Dr. Jimbo Deshpande from pulmonary medicine 2. Purulent tracheobronchitis, we will attempt to obtain sputum culture, monitor for pneumonic infiltrates 3. Chemical induced hyperglycemia, on Solu-Medrol, and sliding scale insulin coverage monitor for hemoglobin A1c 4. Hypothyroidism, patient has tachycardia TSH will be obtained 50 g daily 5. Sinus tachycardia was likely secondary to nebulized steroids, check TSH 6. Tobacco dependency, patient was highly educated regarding ill effects off chronic tobacco use, patient is not committed to smoking cessation program 6. Hypertension, on maintenance losartan 50 mg daily 7. Anxiety, on Xanax 1 mg 3 times a day when necessary 8. Dysthymia on Lexapro 10 mg daily 9 Calcified lesion in the spleen, continued for surveillance as outpatient DVT prophylaxis, low risk, early ambulation and GI prophylaxis Pepcid The above impression and plan of care have been discussed and directed by signing physician. Keiko Hinkle nurse practitioner acting as scribe for signing physician.
--- NOTE | 2017-06-02 14:11 | P.CRDCN ---
History of Present Illness Consult date: 06/02/17 History of present illness: Mrs. Morgan is a pleasant 52-year-old female past medical history significant for hypertension and hypothyroidism. She also has a current everyday she states her last cigarette was approximately one week ago. She denies history of coronary artery disease and is never seen a bill sorter for any reason. We have been asked to see her in consultation secondary to tachycardia. She presented to the hospital on the with complaints of shortness of breath with a pulse ox of 83%. She denies ever having had symptoms of chest pain, diaphoresis, palpitations, nausea, vomiting or dizziness. She was tachycardic on arrival with a heart rate of 139 blood pressure 162/93. She has been receiving IV steroids as well as breathing treatments and antibiotics since admission. At the time of exam she is seen sitting up in bed comfortably resting in room air. She states her breathing is improved greatly since admission. She continues to deny any symptoms of chest pain. EKG reveals sinus tachycardia with no acute ST or T-wave abnormalities. Chest x-ray is negative for an acute cardiopulmonary process. Laboratory data reviewed, WBC 12.3, hemoglobin 13.1, platelets 263, potassium 3.9, magnesium on admission 1.4 after replacement 1.7, TSH 0.516, proBNP 413, cardiac enzymes negative 2. Current cardiac medications include losartan 50 mg daily. Echocardiogram performed reveals preserved left ventricular systolic function with ejection fraction 60-65%. Review of Systems At the time of my exam: CONSTITUTIONAL: Denies fever. Denies chills. EYES: Denies blurred vision. Denies vision changes. Denies eye pain. EARS, NOSE, MOUTH & THROAT: Denies headache. Denies sore throat. Denies ear pain. CARDIOVASCULAR: Denies chest pain. Denies shortness of breath. Denies orthopnea. Denies PND. Denies palpitations. RESPIRATORY: Denies cough. GASTROINTESTINAL: Denies abdominal pain. Denies diarrhea. Denies constipation. Denies nausea. Denies vomiting. MUSCULOSKELETAL: Denies myalgias. INTEGUMENTARY: Denies pruitis. Denies rash. NEUROLOGIC: Denies numbness. Denies tingling. Denies weakness. PSYCHIATRIC: Denies anxiety. Denies depression. ENDOCRINE: Denies fatigue. Denies weight change. Denies polydipsia. Denies polyurina. GENITOURINARY: Denies burning, hematuria or urgency with micturation. HEMATOLOGIC: Denies history of anemia. Denies bleeding. Past Medical History Past Medical History: Hypertension, Thyroid Disorder History of Any Multi-Drug Resistant Organisms: None Reported Past Surgical History: Uterine Ablation Additional Past Surgical History / Comment(s): Left sided thyroidectomy, knee surgery Past Anesthesia/Blood Transfusion Reactions: No Reported Reaction Past Psychological History: Anxiety, Depression Smoking Status: Current every day smoker Past Alcohol Use History: Occasional Past Drug Use History: None Reported - Past Family History Father Family Medical History: Cancer (Skin cancer), Diabetes Mellitus Mother Family Medical History: Dementia Additional Family Medical History / Comment(s): One brother healthy 2 sisters healthy one daughter healthy one son healthy Medications and Allergies Home Medications Medication Instructions Recorded Confirmed Type Escitalopram [Lexapro] 10 mg PO DAILY 10/15/16 05/31/17 History Levothyroxine Sodium [Synthroid] 50 mcg PO DAILY 10/15/16 05/31/17 History Losartan [Cozaar] 50 mg PO DAILY 05/07/17 05/31/17 History ALPRAZolam [Xanax] 1 mg PO TID PRN 05/31/17 05/31/17 History Allergies Allergy/AdvReac Type Severity Reaction Status Date / Time No Known Allergies Allergy Verified 05/31/17 16:15 Physical Exam Vitals: Vital Signs Temp Pulse Pulse Resp BP Pulse Ox 06/02/17 11:09 82 06/02/17 10:56 82 06/02/17 09:15 78 95 06/02/17 07:37 97.7 F 80 16 130/83 98 06/02/17 06:57 80 06/02/17 06:43 79 99 06/02/17 00:20 18 06/01/17 21:44 97.9 F 117 H 18 128/72 93 L 06/01/17 19:53 108 H 06/01/17 19:45 104 H 06/01/17 16:34 110 H 06/01/17 16:24 108 H 06/01/17 16:00 108 H 16 06/01/17 15:10 98.6 F 108 H 16 116/68 93 L Intake and Output 06/01/17 06/02/17 06/02/17 22:59 06:59 14:59 Intake Total 240 Balance 240 Intake: Oral 240 Other: Voiding Method Toilet Toilet Toilet # Voids 1 1 Blood pressure 130/83 heart rate 88 afebrile maintaining oxygen saturation on room air GENERAL: This is a 52-year-old female in no apparent distress at the time of my examination. HEENT: Head is atraumatic, normocephalic. Pupils are equal, round. Sclerae anicteric. Conjunctivae are clear. Mucous membranes of the mouth are moist. Neck is supple. There is no jugular venous distention. No carotid bruit is heard. LUNGS: Clear to auscultation no wheezes, rales or rhonchi. No chest wall tenderness is noted on palpation or with deep breathing. HEART: Regular rate and rhythm without murmurs, rubs or gallops. S1 and S2 heard. ABDOMEN: Soft, nontender. Bowel sounds are heard. No organomegaly noted. EXTREMITIES: No evidence of peripheral edema and no calf tenderness noted. VASCULAR: Radial and dorsalis pedis pulses palpated, no evidence of clubbing. NEUROLOGIC: Patient is awake, alert and oriented x3. Results 06/02/17 06:59 06/02/17 06:59 Cardiac Enzymes 06/02/17 Range/Units 06:59 Troponin I <0.012 (0.000-0.034) ng/mL CBC 06/02/17 Range/Units 06:59 WBC 12.3 H (3.8-10.6) k/uL RBC 3.86 (3.80-5.40) m/uL Hgb 13.1 (11.4-16.0) gm/dL Hct 37.6 (34.0-46.0) % Plt Count 263 (150-450) k/uL Comprehensive Metabolic Panel 06/02/17 Range/Units 06:59 Sodium 143 (137-145) mmol/L Potassium 3.9 (3.5-5.1) mmol/L Chloride 108 H (98-107) mmol/L Carbon Dioxide 27 (22-30) mmol/L BUN 19 H (7-17) mg/dL Creatinine 0.60 (0.52-1.04) mg/dL Glucose 97 (74-99) mg/dL Calcium 9.4 (8.4-10.2) mg/dL Current Medications Generic Name Dose Route Start Last Admin Trade Name Freq PRN Reason Stop Dose Admin Acetaminophen 650 mg 05/31/17 19:02 05/31/17 19:34 Tylenol Tab PO 650 mg Q6HR PRN Administration Fever and/ or Pain Albuterol Sulfate 2.5 mg 05/31/17 19:02 Ventolin Nebulized INHALATION RT-Q3H PRN Shortness Of Breath Or Wheezing Albuterol/Ipratropium 3 ml 05/31/17 16:00 06/02/17 10:56 Duoneb 0.5 Mg-3 Mg/3 Ml Soln INHALATION 3 ml RT-QID JAZMIN Administration Alprazolam 1 mg 05/31/17 17:39 06/01/17 22:39 Xanax PO 1 mg TID PRN Administration Anxiety Azithromycin 500 mg 06/01/17 09:00 06/02/17 08:47 Zithromax PO 500 mg DAILY JAZMIN Administration Budesonide 0.5 mg 06/02/17 08:00 06/02/17 06:43 Pulmicort INHALATION 0.5 mg RT-BID JAZMIN Administration Escitalopram Oxalate 10 mg 06/01/17 09:00 06/02/17 08:47 Lexapro PO 10 mg DAILY JAZMIN Administration Famotidine 20 mg 06/01/17 21:00 06/02/17 08:47 Pepcid PO 20 mg BID JAZMIN Administration Heparin Sodium (Porcine) 5,000 unit 06/01/17 21:00 06/02/17 08:49 Heparin SQ 5,000 unit Q12HR JAZMIN Administration Insulin Aspart 0 unit 05/31/17 21:00 06/02/17 13:05 Novolog SQ Not Given A[facility]S [facility] Protocol Levothyroxine Sodium 50 mcg 06/01/17 06:30 06/02/17 06:08 Synthroid PO 50 mcg DAILY@0630 JAZMIN Administration Losartan Potassium 50 mg 06/01/17 09:00 06/02/17 08:47 Cozaar PO 50 mg DAILY JAZMIN Administration Montelukast Sodium 10 mg 06/01/17 21:00 06/01/17 21:34 Singulair PO 10 mg HS JAZMIN Administration Prednisone 60 mg 06/03/17 09:00 PO DAILY JAZMIN Intake and Output 06/01/17 06/02/17 06/02/17 22:59 06:59 14:59 Intake Total 240 Balance 240 Intake: Oral 240 Other: Voiding Method Toilet Toilet Toilet # Voids 1 1 06/02/17 06:59 06/02/17 06:59 Assessment and Plan Assessment: ASSESSMENT 1. Tachycardia, sinus. 2. Acute respiratory failure secondary to hypoxia 3. Hypertension, continue losartan 4. Hypothroidism 5. Anxiety 6. Chronic tobacco use PLAN Echocardiogram and doppler study has been reviewed and is normal. Tachycardia most likely related to respiratory distress as well as IV steroids and breathing treatments with albuterol. Stable from a cardiac perspective. Thank you kindly for this consultation. The above impression and plan of care have been discussed and directed by the signing physician. Marta Ramirez, nurse practitioner, acting as scribe for signing physician.
[2017-06-02 16:21] VITALS: BP 125/74; PULSE 76; TEMP 98.2
[2017-06-03] MEDS ORDERED: predniSONE 20 MG TAB PO SCH (09:00)
[2017-06-04 11:54] LABS: Alpha 1 Anti-Trypsin 135 mg/dL (90 - 200)
== END 2017-06-02 16:30 | disposition home or self-care (01) | DRG 190 ==
LOC: EC 11:27 → 5MS5E 16:00
PROVIDERS: ADMIT Internal Medicine; ATTEND Internal Medicine
DX: J44.1 Chronic obstructive pulmonary disease with (acute) exacerbation (principal); J96.01 Acute respiratory failure with hypoxia; J45.901 Unspecified asthma with (acute) exacerbation; F34.1 Dysthymic disorder; R00.0 Tachycardia, unspecified; I10 Essential (primary) hypertension; F41.9 Anxiety disorder, unspecified; R01.1 Cardiac murmur, unspecified; E89.0 Postprocedural hypothyroidism; F17.210 Nicotine dependence, cigarettes, uncomplicated; R73.9 Hyperglycemia, unspecified; D72.1 Eosinophilia; Z71.6 Tobacco abuse counseling; Z80.8 Family history of malignant neoplasm of other organs or systems; Z83.3 Family history of diabetes mellitus; Z81.8 Family history of other mental and behavioral disorders; Z79.899 Other long term (current) drug therapy
CPT/HCPCS: 36415; 71046; 80048; 80053; 82103; 82104; 82550; 82553; 82785; 83036; 83735; 83880; 84443; 84484; 85025; 85610; 85730; 86001; 86003; 86606; 86609; 93005; 93306; 94640; 94644; 94760; 96365; 96366; 96368; 99285

== ENCOUNTER → 2017-06-10 | Outpatient (CLI) | payer BC ==
[2017-06-11 11:46] LABS: Alt. alternata IgE Class CLASS 0; Alternaria alternata IgE <0.35 kU/L (<0.35); Asperg. fumagatus IgE <0.35 kU/L (<0.35); Asperg. fumagatus IgE Class CLASS 0; Bermuda Grass IgE <0.35 kU/L (<0.35); Birch(Com.Silvr) IgE <0.35 kU/L (<0.35); Birch(Com.Silvr) IgE Class CLASS 0; Cat Epith & Dander IgE >100.00 kU/L (<0.35); Cat Epith & Dander IgE Class CLASS VI; Clad herbarum IgE <0.35 kU/L (<0.35); Cockroach IgE <0.35 kU/L (<0.35); Cottonwood IgE <0.35 kU/L (<0.35); Dermato. farinae IgE Class CLASS III; Dog Dander IgE 2.94 kU/L (<0.35); Elm IgE <0.35 kU/L (<0.35); Maple (Box Elder) IgE <0.35 kU/L (<0.35); Maple (Box Elder) IgE Class CLASS 0; Mountain Cedar IgE <0.35 kU/L (<0.35); Mountain Cedar IgE Class CLASS 0; Mouse Urine IgE Class CLASS 0; Nettle IgE <0.35 kU/L (<0.35); Nettle IgE Class CLASS 0; Oak IgE <0.35 kU/L (<0.35); Penicillium notatum IgE Class CLASS I; Rough Marshelder IgE <0.35 kU/L (<0.35); Rough Marshelder IgE Class CLASS 0; Timothy Grass IgE <0.35 kU/L (<0.35); White Ash IgE Class CLASS 0
== END | disposition home or self-care (01) ==
LOC: LABWHC1 12:54
PROVIDERS: ATTEND Internal Medicine
DX: J45.40 Moderate persistent asthma, uncomplicated (principal)
CPT/HCPCS: 36415; 82785; 86001; 86003; 86606; 86609

== ENCOUNTER 2018-04-22 09:43 | Day surgery (SDC) | payer BC ==
[2018-04-21 09:32] VITALS: BMI 22.6
[2018-04-22 10:12] VITALS: RESP 16; TEMP 97.8
[2018-04-22] MEDS: LACTATED RINGERS 1,000 ML IV SCH ×2 (10:13→10:50)
[2018-04-22] MEDS ORDERED: LIDOCAINE 1% 20 ML VIAL (10MG/ML) FOR IV START INTRADERMA ONE (10:13)
[2018-04-22] MEDS ORDERED: PROPOFOL 10 MG/ML 20 ML VIAL IV ONE (10:52)
[2018-04-22] MEDS ORDERED: LIDOCAINE 1% INJ 10MG/ML (20 ML MDV) ONE (10:52)
--- NOTE | 2018-04-22 11:19 | P.PCN ---
Date of Procedure: 04/22/18 Procedure(s) Performed: Brief history: Patient is a pleasant scheduled for an elective upper endoscopy as well as colonoscopy as a part of evaluation of abdominal pain, change in bowel habits with alternating diarrhea and constipation for the last several months duration. Procedure performed: Esophagogastroduodenoscopy biopsy Colonoscopy Preoperative diagnosis: GERD/abdominal pain Change in bowel habits Anesthesia: MAC Procedure: After informed consent was obtained from the patient was brought into the endoscopy unit and IV sedation was administered by anesthesia under continuous monitoring. Initially upper endoscopy was done. The Olympus GF 160 video endoscope was inserted inserted into the mouth and esophagus intubated without any difficulty and was gradually advanced into the stomach and duodenum and carefully examined. The bulb and second part of the duodenum appeared normal. Biopsies were done from the duodenum to rule out celiac disease. The scope was then withdrawn into the stomach adequately insufflated with air and upon careful examination the antrum had mild gastritis and biopsies were done from this area. The body, cardia and fundus appeared normal. The scope was then withdrawn into the esophagus. The GE junction was located at 40 cm to the incisors. It appeared regular with no erythema erosions or ulcerations. Rest of the esophagus appeared normal. Patient tolerated the procedure well. At this time the patient continued to remain sedation. Initial digital rectal examination was normal. Olympus CF 160 video colonoscope was then inserted into the rectum and gradually advanced to the cecum without any difficulty. Careful examination was performed as the scope was gradually being withdrawn. The prep was excellent. The cecum, ascending colon, transverse colon, descending colon, sigmoid colon and rectum appeared normal. Retroflexion was performed in the rectum and no lesions were noted. scattered sigmoid diverticulosis seen. Patient tolerated the procedure well. Impression: 1. Upper endoscopy revealed mild antral gastritis but no evidence of esophagitis or peptic ulcer disease 2. Colonoscopy revealed scattered sigmoid diverticulosis. Recommendations: Findings of this examination were discussed with the patient as well as her family. She was advised to follow with the biopsy results. She can have a repeat colonoscopy in 10 years.
[2018-04-22 11:39] VITALS: BP 126/75; PULSE 65
== END 2018-04-22 12:22 | disposition home or self-care (01) ==
LOC: ORWHC2ENDO 09:43
PROVIDERS: ATTEND Internal Medicine Gastroenterology
DX: K29.50 Unspecified chronic gastritis without bleeding (principal); K57.30 Diverticulosis of large intestine without perforation or abscess without bleeding; K21.9 Gastro-esophageal reflux disease without esophagitis; Z87.19 Personal history of other diseases of the digestive system; Z79.890 Hormone replacement therapy; Z79.51 Long term (current) use of inhaled steroids; Z79.899 Other long term (current) drug therapy; I10 Essential (primary) hypertension; F17.210 Nicotine dependence, cigarettes, uncomplicated; E07.9 Disorder of thyroid, unspecified
CPT/HCPCS: 88305; 45378; 43239; J2001; J2704

== ENCOUNTER 2018-12-17 19:57 | Inpatient (IN) | payer BC, OTHER ==
[2018-12-17] MEDS ORDERED: methylPREDNISolone SOD SUCCI 125 MG/2 ML VIAL IV STA (20:08)
[2018-12-17] MEDS: IPRATROPIUM-ALBUTEROL 3 ML NEB INHALATION STA ×2 (20:24→22:12)
[2018-12-17] MEDS: SODIUM CHLORIDE 0.9% 1,000 ML IV STA (20:29)
[2018-12-17 20:33] LABS: Basophils # (A) 0.1 k/uL (0-0.2); Basophils % (A) 1 %; Eosinophils # (A) 0.7 k/uL (0-0.7); Eosinophils % (A) 9 %; HCT 47.4 % (34.0-46.0); HGB 16.4 gm/dL (11.4-16.0); Lymphocytes # (A) 2.4 k/uL (1.0-4.8); Lymphocytes % (A) 34 %; MCH 35.4 pg (25.0-35.0); MCHC 34.6 g/dL (31.0-37.0); MCV 102.3 fL (80.0-100.0); Macrocytosis Slight; Mean Platelet Volume 5.9; Monocytes # (A) 0.3 k/uL (0-1.0); Monocytes % (A) 4 %; Neutrophils # (A) 3.5 k/uL (1.3-7.7); Neutrophils % (A) 49 %; Platelet Count 248 k/uL (150-450); RBC 4.63 m/uL (3.80-5.40); RDW 13.4 % (11.5-15.5); WBC 7.1 k/uL (3.8-10.6)
[2018-12-17 20:50] LABS: ALT 33 U/L (9-52); AST 35 U/L (14-36); African American GFR (CKD) >90 (>60 ml/min/1.73 sqM); Albumin 4.4 g/dL (3.5-5.0); Alkaline Phosphatase 97 U/L (38-126); Anion Gap 8 mmol/L; Blood Urea Nitrogen 9 mg/dL (7-17); Calcium 10.2 mg/dL (8.4-10.2); Carbon Dioxide 29 mmol/L (22-30); Chloride 104 mmol/L (98-107); D-Dimer 0.51 mg/L FEU (<0.60); Glucose 104 mg/dL (74-99); Magnesium 1.4 mg/dL (1.6-2.3); Partial Thromboplastin Time 26.5 sec (22.0-30.0); Potassium 4.5 mmol/L (3.5-5.1); Prothrombin Time 10.3 sec (9.0-12.0); Sodium 141 mmol/L (137-145); Total Bilirubin 0.4 mg/dL (0.2-1.3); Total Protein 7.5 g/dL (6.3-8.2)
--- NOTE | 2018-12-17 21:08 | XR ---
EXAMINATION TYPE: XR chest 2V DATE OF EXAM: 12/17/2018 COMPARISON: 05/31/2017 HISTORY: Short of breath TECHNIQUE: Frontal and lateral views of the chest are obtained. FINDINGS: Heart and mediastinum are normal. Lungs are clear of consolidation. There is calcified cys t in the left upper quadrant that could be splenic cyst. There is no pleural effusion. Bony thorax is intact. IMPRESSION: No active cardiopulmonary disease. No change.
--- NOTE | 2018-12-17 21:16 | ED ---
SOB HPI - General Chief Complaint: Shortness of Breath Stated Complaint: AHIR Time Seen by Provider: 12/17/18 20:08 Source: patient, RN notes reviewed Mode of arrival: wheelchair Limitations: no limitations - History of Present Illness Initial Comments: This is a 53-year-old female history of COPD who presents complains of 3 days of worsening shortness of breath some fevers chills she's had some phlegm not sure exactly what color it is no chest pain or verbal with her home medication. MD Complaint: shortness of breath, cough - Related Data Home Medications Medication Instructions Recorded Confirmed Levothyroxine Sodium [Synthroid] 50 mcg PO DAILY 10/15/16 12/17/18 Losartan [Cozaar] 50 mg PO DAILY 05/07/17 12/17/18 Albuterol Inhaler [Ventolin Hfa 2 puff INHALATION RT-Q4H PRN 12/17/18 12/17/18 Inhaler] Ipratropium-Albuterol Nebulize 3 ml INHALATION RT-Q4H PRN 12/17/18 12/17/18 [Duoneb 0.5 mg-3 mg/3 ml Soln] Allergies Allergy/AdvReac Type Severity Reaction Status Date / Time No Known Allergies Allergy Verified 12/17/18 20:44 Review of Systems ROS Statement: Those systems with pertinent positive or pertinent negative responses have been documented in the HPI. ROS Other: All systems not noted in ROS Statement are negative. Past Medical History Past Medical History: Asthma, GERD/Reflux, GI Bleed, Hypertension, Thyroid D isorder History of Any Multi-Drug Resistant Organisms: None Reported Past Surgical History: Orthopedic Surgery, Uterine Ablation Additional Past Surgical History / Comment(s): Left sided thyroidectomy, rt knee surgery Past Anesthesia/Blood Transfusion Reactions: No Reported Reaction Past Psychological History: Anxiety, Depression Smoking Status: Current every day smoker - Past Family History Father Family Medical History: Cancer, Diabetes Mellitus Mother Family Medical History: Dementia Additional Family Medical History / Comment(s): One brother healthy 2 sisters healthy one daughter healthy one son healthy General Exam - General Exam Comments Initial Comments: This is a well-developed sec appearing female who is awake alert oriented 3 with audible wheezing noted Limitations: no limitations General appearance: alert, anxious, in distress Head exam: Present: atraumatic, normocephalic, normal inspection Eye exam: Present: normal appearance, PERRL, EOMI. Absent: scleral icterus, conjunctival injection, periorbital swelling ENT exam: Present: mucous membranes dry Neck exam: Present: normal inspection, full ROM. Absent: tenderness, meningismus, lymphadenopathy Respiratory exam: Present: respiratory distress, wheezes, accessory muscle use, decreased breath sounds. Absent: rales, rhonchi, stridor Cardiovascular Exam: Present: normal rhythm, tachycardia, normal heart sounds. Absent: systolic murmur, diastolic murmur, rubs, gallop, clicks GI/Abdominal exam: Present: soft, normal bowel sounds. Absent: distended, tenderness, guarding, rebound, rigid Extremities exam: Present: normal inspection, full ROM, normal capillary refill. Absent: tenderness, pedal edema, joint swelling, calf tenderness Back exam: Present: normal inspection Neurological exam: Present: alert, oriented X3, CN II-XII intact Psychiatric exam: Present: normal affect, normal mood Skin exam: Present: warm, dry, intact, normal color. Absent: rash Course Vital Signs 12/17/18 12/17/18 12/17/18 20:02 20:25 20:42 Temperature 97.7 F Pulse Rate 121 H 121 H 117 H Respiratory 24 Rate O2 Sat by Pulse 84 L Oximetry 12/17/18 12/17/18 12/17/18 21:47 21:59 22:13 Temperature Pulse Rate 100 102 H 102 H Respiratory Rate O2 Sat by Pulse Oximetry 12/17/18 22:21 Temperature Pulse Rate 100 Respiratory Rate O2 Sat by Pulse Oximetry - Reevaluation(s) Reevaluation #1: 12/17/18 22:49 Reevaluation patient after initial treatment and after multiple treatments revealed very minimal improvement. Medical Decision Making - Medical Decision Making I did reevaluate the patient multiple occasions she is getting minimal improvement I did have a long discussion with her regarding the findings she will be admitted admission orders are written her formulator compounder will be consulted - Lab Data Result diagrams: 12/17/18 20:19 12/17/18 20:19 Lab Results 12/17/18 12/17/18 12/17/18 Range/Units 20:19 20:19 20:19 WBC 7.1 (3.8-10.6) k/uL RBC 4.63 (3.80-5.40) m/uL Hgb 16.4 H (11.4-16.0) gm/dL Hct 47.4 H (34.0-46.0) % MCV 102.3 H (80.0-100.0) fL MCH 35.4 H (25.0-35.0) pg MCHC 34.6 (31.0-37.0) g/dL RDW 13.4 (11.5-15.5) % Plt Count 248 (150-450) k/uL Neutrophils % 49 % Lymphocytes % 34 % Monocytes % 4 % Eosinophils % 9 % Basophils % 1 % Neutrophils # 3.5 (1.3-7.7) k/uL Lymphocytes # 2.4 (1.0-4.8) k/uL Monocytes # 0.3 (0-1.0) k/uL Eosinophils # 0.7 (0-0.7) k/uL Basophils # 0.1 (0-0.2) k/uL Macrocytosis Slight PT 10.3 (9.0-12.0) sec INR 1.0 (<1.2) APTT 26.5 (22.0-30.0) sec D-Dimer 0.51 (<0.60) mg/L FEU Sodium 141 (137-145) mmol/L Potassium 4.5 (3.5-5.1) mmol/L Chloride 104 (98-107) mmol/L Carbon Dioxide 29 (22-30) mmol/L Anion Gap 8 mmol/L BUN 9 (7-17) mg/dL Creatinine 0.64 (0.52-1.04) mg/dL Est GFR (CKD-EPI)AfAm >90 (>60 ml/min/1.73 sqM) Est GFR (CKD-EPI)NonAf >90 (>60 ml/min/1.73 sqM) Glucose 104 H (74-99) mg/dL Calcium 10.2 (8.4-10.2) mg/dL Magnesium 1.4 L (1.6-2.3) mg/dL Total Bilirubin 0.4 (0.2-1.3) mg/dL AST 35 (14-36) U/L ALT 33 (9-52) U/L Alkaline Phosphatase 97 (38-126) U/L Troponin I (0.000-0.034) ng/mL NT-Pro-B Natriuret Pep pg/mL Total Protein 7.5 (6.3-8.2) g/dL Albumin 4.4 (3.5-5.0) g/dL 12/17/18 12/17/18 Range/Units 20:19 20:19 WBC (3.8-10.6) k/uL RBC (3.80-5.40) m/uL Hgb (11.4-16.0) gm/dL Hct (34.0-46.0) % MCV (80.0-100.0) fL MCH (25.0-35.0) pg MCHC (31.0-37.0) g/dL RDW (11.5-15.5) % Plt Count (150-450) k/uL Neutrophils % % Lymphocytes % % Monocytes % % Eosinophils % % Basophils % % Neutrophils # (1.3-7.7) k/uL Lymphocytes # (1.0-4.8) k/uL Monocytes # (0-1.0) k/uL Eosinophils # (0-0.7) k/uL Basophils # (0-0.2) k/uL Macrocytosis PT (9.0-12.0) sec INR (<1.2) APTT (22.0-30.0) sec D-Dimer (<0.60) mg/L FEU Sodium (137-145) mmol/L Potassium (3.5-5.1) mmol/L Chloride (98-107) mmol/L Carbon Dioxide (22-30) mmol/L Anion Gap mmol/L BUN (7-17) mg/dL Creatinine (0.52-1.04) mg/dL Est GFR (CKD-EPI)AfAm (>60 ml/min/1.73 sqM) Est GFR (CKD-EPI)NonAf (>60 ml/min/1.73 sqM) Glucose (74-99) mg/dL Calcium (8.4-10.2) mg/dL Magnesium (1.6-2.3) mg/dL Total Bilirubin (0.2-1.3) mg/dL AST (14-36) U/L ALT (9-52) U/L Alkaline Phosphatase (38-126) U/L Troponin I <0.012 (0.000-0.034) ng/mL NT-Pro-B Natriuret Pep 143 pg/mL Total Protein (6.3-8.2) g/dL Albumin (3.5-5.0) g/dL - EKG Data -: EKG Interpreted by Me EKG shows normal: sinus rhythm Rate: tachycardia EKG Comments: EKG shows sinus tachycardia of 111 VT interval 178 QRS duration 70 QT since QTC 3:30/448 nonspecific anterior configuration - Radiology Data Radiology results: report reviewed (Review the imaging shows no acute findings or is evidence of a calcification in the left upper quadrant abdomen likely secondary to calcified splenic cyst.), image reviewed Critical Care Time Critical Care Time: Yes Critical Care Time: 35 minutes critical care time which includes initial presentation with history physical labs x-rays multiple reevaluation patient responsive therapy discuss with the patient family regarding findings discussed with Dr. Centeno regarding the admission admission orders neck mentation the above Disposition Clinical Impression: Acute exacerbation of chronic obstructive pulmonary disease, Acute respiratory distress syndrome in adult, Hypomagnesemia syndrome Disposition[facility] Condition: Fair Referrals: Marquis Lua DO [Primary Care Provider] - 1-2 days
[2018-12-17] MEDS ORDERED: IPRATROPIUM-ALBUTEROL 3 ML NEB INHALATION STA (21:26)
[2018-12-17] MEDS: MAGNESIUM SULFATE-D5W PMX 1 GM in DEXTROSE/WATER 1 100ML.BAG IVPB SCH ×2 (21:54→22:55)
[2018-12-18 00:01] VITALS: BMI 23.0
[2018-12-18] MEDS: methylPREDNISolone SOD SUCCI 125 MG/2 ML VIAL IV SCH ×3 (01:34→11:58)
[2018-12-18] MEDS: IPRATROPIUM-ALBUTEROL 3 ML NEB INHALATION SCH ×7 (02:15→20:04)
[2018-12-18] MEDS ORDERED: IBUPROFEN 800 MG TAB PO PRN (04:07)
[2018-12-18] MEDS: IBUPROFEN 400 MG TAB PO PRN ×2 (04:22→12:02)
[2018-12-18] MEDS: SODIUM CHLORIDE 0.9% 1,000 ML IV STA (04:25)
[2018-12-18] MEDS: LEVOTHYROXINE 50 MCG TAB PO SCH (06:41)
[2018-12-18] MEDS: ACETAMINOPHEN TAB 325 MG TAB PO PRN ×2 (07:20→19:14)
[2018-12-18] MEDS: LOSARTAN 50 MG TAB PO SCH (07:45)
[2018-12-18] MEDS: BUDESONIDE 0.5 MG/2 ML NEBU INHALATION SCH ×2 (09:35→20:06)
[2018-12-18] MEDS: FAMOTIDINE 20 MG TAB PO SCH ×2 (11:19→21:33)
[2018-12-18] MEDS: HEPARIN SODIUM,PORCINE 5,000 UNIT/ML 1 ML VIAL SQ SCH ×2 (11:20→21:34)
--- NOTE | 2018-12-18 12:44 | CONS ---
CONSULTATION Steffanie Morgan is a 53-year-old female who presented to the ED at [facility] with increasing shortness of breath. This has been going on for about 4-5 days. She had wheezing along with cough. She had recently ran out of her medications as she had no insurance. 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 She subsequently was admitted for further evaluation and management. She denied any fever, but had been having some chills and sweats. PAST MEDICAL HISTORY: Positive for severe asthma, which she was admitted to the hospital in May when she was quite hypoxic at that time and past medical history is positive for left-sided thyroid nodules, status post left-sided thyroidectomy which is on thyroid replacement, history of anxiety, depression. 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 She used to smoke about half pack of cigarettes per day. She has lost her job at this time. FAMILY HISTORY: Positive for asthma in her son. patient does have 2 cats at home. Thank. MEDICATIONS: Prior to admission were Ventolin, Synthroid, and Cozaar. PHYSICAL EXAMINATION: Patient was in [id number] respiratory distress. Blood pressure is 147/91, respiratory rate of 20, pulse rate of 114, temperature 97.9, O2 saturation on 2 L by nasal cannula is 92%. HEENT: Reveals pupils that are equal. Chest reveals decreased breath sounds. Prolonged exhalation with expiratory wheeze. Cardiovascular system with an S1, S2. Abdomen is soft. There is no pedal edema. When she came to the ER, her O2 saturation was only 84%. LABS: Reveal a white count of 7.1, hemoglobin of 16.4, eosinophilic count of 0.7000, which is considered high. In the past, she was positive on her HB panel and had an IgE level of 566. Her alpha-1 antitrypsin phenotype was normal in the past. Chest x-ray showed no discrete infiltrate. IMPRESSION: 1. Severe asthma with acute exacerbation. 2. Acute respiratory failure secondary to asthma with exacerbation and acute respiratory failure is with hypoxia. 3. Polycythemia which may in part be due to chronic hypoxemia. At this point in time from a pulmonary standpoint, would keep her on GI DVT prophylaxis. Keep on supplemental oxygen. Check peak flows. Keep her on IV and add aerosolized steroids. Add montelukast to her regimen. Keep her on bronchodilators. 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 She was counseled regarding her condition and this approach. She would benefit from close outpatient followup once discharged. I would like to thank you for giving me the privilege of caring for her. CARMEN / LUIS: [id number] /
[2018-12-18] MEDS ORDERED: IPRATROPIUM-ALBUTEROL 3 ML NEB INHALATION PRN (12:58)
--- NOTE | 2018-12-18 13:04 | P.HPIM ---
History of Present Illness H&P Date: 12/18/18 Chief Complaint: Difficulty breathing This is a 53-year-old female patient of Dr. Lua with past history of hypertension, hypothyroidism, COPD, chronic tobacco use and dependence. Patient states that she has had increasing shortness of breath and difficulty breathing with sudden onset. She states she has nebulizer treatments at home that she uses as needed but increased to at least every 6 hours but did not seem to help. She states she could not breathe yesterday. Patient complains of cough with clear sputum production which was increased from her b aseline. She came into [facility] emergency center for evaluation. She was afebrile, heart rate in the 120s, pulse ox 84% on room air. WBC normal, hemoglobin 16.4, electrolytes and renal function within normal limits, blood sugar 104. Liver function tests within normal limits, troponin negative, proBNP 143. EKG was sinus tachycardia. Chest x-ray revealed no acute cardiopulmonary disease. Patient was started on DuoNeb treatments every 4 hours, Solu-Medrol and patient has been seen by pulmonary medicine, Dr. DOROTA Deshpande and started on Pulmicort as well. Patient states that her breathing is much improved from yesterday. She denies any home oxygen. Regarding smoking. She is down to half a pack per day. Review of Systems Constitutional: Denies chills, Denies fatigue, Denies fever, Denies lethargy, Denies malaise, Denies poor appetite, Denies weight loss Eyes: denies blurred vision, denies pain Ears, nose, mouth and throat: Denies dental pain, Denies dysphagia, Denies headache, Denies nasal congestion, Denies nasal discharge, Denies sore throat, Denies vertigo Cardiovascular: Reports dyspnea on exertion, Reports shortness of breath, Denies chest pain, Denies edema, Denies leg edema, Denies lightheadedness, Denies syncope Respiratory: Reports cough, Reports cough with sputum, Reports dyspnea, Reports wheezing, Denies excessive sputum, Denies hemoptysis, Denies home oxygen Gastrointestinal: Denies abdominal pain, Denies diarrhea, Denies loss of appetite, Denies nausea, Denies vomiting Genitourinary: Denies dysuria, Denies hematuria, Denies urgency, Denies urinary frequency Musculoskeletal: Denies gait dysfunction, Denies muscle weakness, Denies myalgias Integumentary: Denies pruritus, Denies rash, Denies wounds Neurological: Denies change in mentation, Denies change in speech, Denies num bness, Denies seizures, Denies weakness Psychiatric: Denies anxiety, Denies depression Endocrine: Denies fatigue, Denies weight change Past Medical History Past Medical History: COPD, GERD/Reflux, Hypertension, Thyroid Disorder History of Any Multi-Drug Resistant Organisms: None Reported Past Surgical History: Orthopedic Surgery, Uterine Ablation Additional Past Surgical History / Comment(s): Left sided thyroidectomy, rt knee surgery Past Anesthesia/Blood Transfusion Reactions: No Reported Reaction Past Psychological History: Anxiety, Depression Smoking Status: Current every day smoker Past Alcohol Use History: Occasional Additional Past Alcohol Use History / Comment(s): smoker off and on 10 years, cu rrently smokes about 1/2ppd Past Drug Use History: None Reported - Past Family History Father Family Medical History: Cancer, Diabetes Mellitus Mother Family Medical History: Dementia Additional Family Medical History / Comment(s): One brother healthy 2 sisters h ealthy one daughter healthy one son healthy Medications and Allergies Home Medications Medication Instructions Recorded Confirmed Type Levothyroxine Sodium [Synthroid] 50 mcg PO DAILY 10/15/16 12/18/18 History Losartan [Cozaar] 50 mg PO DAILY 05/07/17 12/18/18 History Albuterol Inhaler [Ventolin Hfa 2 puff INHALATION RT-Q4H PRN 12/17/18 12/18/18 History Inhaler] Ipratropium-Albuterol Nebulize 3 ml INHALATION RT-Q4H PRN 12/17/18 12/18/18 History [Duoneb 0.5 mg-3 mg/3 ml Soln] Allergies Allergy/AdvReac Type Severity Reaction Status Date / Time No Known Allergies Allergy Verified 12/17/18 20:44 Physical Exam Vitals: Vital Signs Temp Pulse Pulse Pulse Resp BP BP 12/18/18 09:52 112 H 12/18/18 09:36 108 H 12/18/18 07:52 22 12/18/18 07:00 97.9 F 114 H 20 147/91 12/18/18 04:13 112 H 12/18/18 04:04 112 H 12/18/18 03:43 97.7 F 113 H 22 131/89 12/18/18 00:04 134/81 12/17/18 23:45 97.8 F 109 H 20 159/89 12/17/18 23:00 97.9 F 99 18 158/86 12/17/18 22:21 100 12/17/18 22:13 102 H 12/17/18 22:00 109 H 20 122/82 12/17/18 21:59 102 H 12/17/18 21:47 100 12/17/18 20:42 117 H 12/17/18 20:30 96 24 135/70 12/17/18 20:25 121 H 12/17/18 20:02 97.7 F 121 H 24 Pulse Ox 12/18/18 09:52 12/18/18 09:36 12/18/18 07:52 12/18/18 07:00 92 L 12/18/18 04:13 12/18/18 04:04 12/18/18 03:43 91 L 12/18/18 00:04 92 L 12/17/18 23:45 91 L 12/17/18 23:00 94 L 12/17/18 22:21 12/17/18 22:13 12/17/18 22:00 93 L 12/17/18 21:59 12/17/18 21:47 12/17/18 20:42 12/17/18 20:30 97 12/17/18 20:25 12/17/18 20:02 84 L Intake and Output 12/17/18 12/18/18 12/18/18 22:59 06:59 14:59 Intake Total 300 Balance 300 Intake: Oral 300 Other: # Voids 1 Weight 63.503 kg Gen: This is a 53-year-old female. She is resting in bed at this time of evaluation appears to be comfortable. No acute respiratory distress is noted at this time. HEENT: Head is atraumatic, normocephalic. Pupils equal, round. Sclerae is anicteric. NECK: Supple. No JVD. No lymphadenopathy. No thyromegaly. LUNGS: Diminished bilaterally with expiratory wheeze. Prolonged exhalation phase. No intercostal retractions. HEART: Regular rate and rhythm. No murmur. ABDOMEN: Soft. Bowel sounds are present. No masses. No tenderness. EXTREMITIES: No pedal edema. No calf tenderness. NEUROLOGICAL: Patient is awake, alert and oriented x3. Cranial nerves 2 through 12 are grossly intact. Results CBC & Chem 7: 12/17/18 20:19 12/17/18 20:19 Labs: Abnormal Lab Results - Last 24 Hours (Table) 12/17/18 12/17/18 Range/Units 20:19 20:19 Hgb 16.4 H (11.4-16.0) gm/dL Hct 47.4 H (34.0-46.0) % MCV 102.3 H (80.0-100.0) fL MCH 35.4 H (25.0-35.0) pg Glucose 104 H (74-99) mg/dL Magnesium 1.4 L (1.6-2.3) mg/dL Thrombosis Risk Factor Assmnt - DVT/VTE Prophylaxis DVT/VTE Prophylaxis: Pharmacologic Prophylaxis ordered - Choose All That Apply Each Factor Represents 1 point: Age 41-60 years Other Risk Factors: No Other congenital or acquired thrombophilia - If yes, enter type in comment: No Thrombosis Risk Factor Assessment Total Risk Factor Score: 1 Thrombosis Risk Factor Assessment Level: Low Risk Assessment and Plan Plan: 1. Acute hypoxic respiratory failure secondary to COPD exacerbation. Continue O2 therapy to maintain pulse ox equal to or greater than 90%. Patient will undergo home O2 assessment. 2. Acute exacerbation of COPD. Continue DuoNeb treatments decreased to scheduled 4 times daily and every 4 hours as needed, continue Pulmicort 0.5 mg twice daily, decrease Solu-Medrol to 40 mg IV every 8 hours. 3. Hypertension. Continue losartan 50 mg daily. 4. Hypothyroidism. Continue levothyroxine 50 g daily. 5. Tobacco use and dependence. Nicotine patch. 6. GI prophylaxis. Pepcid. 7. DVT prophylaxis. Heparin subcu. 8. Polycythemia possibly due to chronic hypoxemia. Patient will be admitted to the hospital for a minimum of 2 night stay. Discharge plan: Probable discharge home tomorrow. Impression and plan of care have been directed as dictated by the signing physician. Andree Cartwright nurse practitioner acting as scribe for signing physician.
[2018-12-18] MEDS: methylPREDNISolone SOD SUCCI 40 MG/ML 1 ML VIAL IV SCH (17:16)
[2018-12-18] MEDS ORDERED: MONTELUKAST 10 MG TAB PO SCH (21:00)
[2018-12-19] MEDS: methylPREDNISolone SOD SUCCI 40 MG/ML 1 ML VIAL IV SCH ×2 (00:55→09:31)
[2018-12-19] MEDS: LEVOTHYROXINE 50 MCG TAB PO SCH (06:39)
[2018-12-19] MEDS: IPRATROPIUM-ALBUTEROL 3 ML NEB INHALATION SCH (09:22)
[2018-12-19] MEDS: BUDESONIDE 0.5 MG/2 ML NEBU INHALATION SCH (09:22)
[2018-12-19] MEDS: FAMOTIDINE 20 MG TAB PO SCH (09:32)
[2018-12-19] MEDS: HEPARIN SODIUM,PORCINE 5,000 UNIT/ML 1 ML VIAL SQ SCH (09:33)
[2018-12-19] MEDS: LOSARTAN 50 MG TAB PO SCH (09:33)
[2018-12-19 09:37] VITALS: BP 119/76; RESP 18; TEMP 97.7
[2018-12-19 09:40] VITALS: PULSE 100
--- NOTE | 2018-12-19 11:40 | P.DS ---
Providers Date of admission: 12/17/18 22:53 Attending physician: Grant Aguilera MD Consults: 12/17/18 22:53 Consult Physician Routine Consulting Provider: Candis Jackson Consult Reason/Comments: COPD exacerbation Do you want consulting provider notified?: Yes, Notify in am Primary care physician: Marquis Lua [facility] Course: This is a 53-year-old female patient of Dr. Lua with past history of hypertension, hypothyroidism, COPD, chronic tobacco use and dependence. Patient states that she has had increasing shortness of breath and difficulty breathing with sudden onset. She states she has nebulizer treatments at home that she uses as needed but increased to at least every 6 hours but did not seem to help. She states she could not breathe yesterday. Patient complains of cough with clear sputum production which was increased from her baseline. She came into [facility] emergency center for evaluation. She was afebrile, heart rate in the 120s, pulse ox 84% on room air. WBC normal, hemoglobin 16.4, electrolytes and renal function within normal limits, blood sugar 104. Liver function tests within normal limits, troponin negative, proBNP 143. EKG was sinus tachycardia. Chest x-ray revealed no acute cardiopulmonary disease. Patient was started on DuoNeb treatments every 4 hours, Solu-Medrol and patient has been seen by pulmonary medicine, Dr. DOROTA Deshpande and started on Pulmicort as well. Patient states that her breathing is much improved from yesterday. She denies any home oxygen. Regarding smoking. She is down to half a pack per day. 12/19/2018: Patient is feeling better. Patient states that her breathing has improved and her cough has improved. Patient is able to tolerate ambulation without shortness of breath. Pulmonology consult appreciated. Singular added to her regime. Continue with aerosol steroids. Continue with bronchodilators. Discharge diagnosis: 1. Acute hypoxic respiratory failure secondary to COPD exacerbation. 2. Acute exacerbation of COPD. 3. Hypertension. 4. Hypothyroidism. 5. Tobacco use and dependence. 6. Polycythemia possibly due to chronic hypoxemia. Disposition: Home with self-care Impression and plan of care have been directed as dictated by the signing physician. Margarita Hurst nurse practitioner acting as scribe for signing physician. Additional CC's: Marquis RodriguezChanell Patient Condition at Discharge: Fair Plan - Discharge Summary Discharge Rx Participant: Yes New Discharge Prescriptions: New Montelukast [Singulair] 10 mg PO HS #30 tab predniSONE 40 mg PO DAILY #14 tab Continue Levothyroxine Sodium [Synthroid] 50 mcg PO DAILY Losartan [Cozaar] 50 mg PO DAILY Ipratropium-Albuterol Nebulize [Duoneb 0.5 mg-3 mg/3 ml Soln] 3 ml INHALATION RT-Q4H PRN PRN Reason: Shortness Of Breath Or Wheezing Albuterol Inhaler [Ventolin Hfa Inhaler] 2 puff INHALATION RT-Q4H PRN #1 inhaler PRN Reason: Shortness Of Breath Discharge Medication List Levothyroxine Sodium [Synthroid] 50 mcg PO DAILY 10/15/16 [History] Losartan [Cozaar] 50 mg PO DAILY 05/07/17 [History] Ipratropium-Albuterol Nebulize [Duoneb 0.5 mg-3 mg/3 ml Soln] 3 ml INHALATION RT-Q4H PRN 12/17/18 [History] Albuterol Inhaler [Ventolin Hfa Inhaler] 2 puff INHALATION RT-Q4H PRN #1 inhaler 12/19/18 [Rx] Montelukast [Singulair] 10 mg PO HS #30 tab 12/19/18 [Rx] predniSONE 40 mg PO DAILY #14 tab 12/19/18 [Rx] Follow up Appointment(s)/Referral(s): Marquis Lua DO [Primary Care Provider] - 1-2 days Activity/Diet/Wound Care/Special Instructions: continue diet as tolerated. fluids are always encouraged. continue medications as prescribed by physician. follow up with physicians as directed after discharge. Call physician with any questions comment concerns worsening returning symptoms, fever 101.1 or higher, not tolerating diet or fluids, shortness of breath not relieved by inhalers.
== END 2018-12-19 12:14 | disposition home or self-care (01) | DRG 190 ==
LOC: EC 19:57 → 6PED 22:53
PROVIDERS: ADMIT Internal Medicine; ATTEND Internal Medicine
DX: J44.1 Chronic obstructive pulmonary disease with (acute) exacerbation (principal); J96.01 Acute respiratory failure with hypoxia; J45.901 Unspecified asthma with (acute) exacerbation; D75.1 Secondary polycythemia; E83.42 Hypomagnesemia; E89.0 Postprocedural hypothyroidism; F17.210 Nicotine dependence, cigarettes, uncomplicated; F32.9 Major depressive disorder, single episode, unspecified; F41.9 Anxiety disorder, unspecified; I10 Essential (primary) hypertension; K21.9 Gastro-esophageal reflux disease without esophagitis; Z79.890 Hormone replacement therapy; Z79.899 Other long term (current) drug therapy; Z83.3 Family history of diabetes mellitus; Z79.51 Long term (current) use of inhaled steroids
CPT/HCPCS: 36415; 71046; 80053; 83735; 83880; 84484; 85025; 85379; 85610; 85730; 93005; 94640; 96361; 96365; 96366; 96375; 99291

== ENCOUNTER → 2020-01-03 | Outpatient (CLI) | payer OTHER ==
--- NOTE | 2020-01-03 10:24 | XR ---
EXAMINATION TYPE: XR chest 2V DATE OF EXAM: 01/03/2020 COMPARISON: Chest x-ray 12/17/2018, CT 05/07/2017 HISTORY: Z00.00, hypertension TECHNIQUE: Frontal and lateral views of the chest are obtained. FINDINGS: There is no focal air space opacity, pleural effusion, or pneumothorax seen. The cardiac silhouette size is within normal limits. There are spherical calcifications in the left upper quadran t as on prior exam consistent with splenic cysts. Prominent lung volumes suggest underlying COPD, the re is eventration of the right hemidiaphragm. The osseous structures are intact, there is a slight s caryl curvature. IMPRESSION: No acute cardiopulmonary process.
== END | disposition home or self-care (01) ==
LOC: RADXRMAIN 10:02
PROVIDERS: ATTEND Family Medicine
DX: Z00.00 Encounter for general adult medical examination without abnormal findings (principal); I10 Essential (primary) hypertension
CPT/HCPCS: 71046

== ENCOUNTER → 2020-01-03 | Outpatient (CLI) | payer OTHER ==
--- NOTE | 2020-01-03 11:30 | BD ---
EXAMINATION TYPE: Axial Bone Density DATE OF EXAM: 01/03/2020 COMPARISON: 2016 CLINICAL HISTORY: disorder of bone Height: 5'5 Weight: 131 FRAX RISK QUESTIONS: Secondary Osteoporosis: Current Tobacco Use: y RISK FACTORS HISTORY OF: Family History of Osteoporosis: y Postmenopausal woman: y MEDICATIONS: Thyroid Medications: Which medication: synthroid How Lon years Additional Medications: blood pressure, Additional History: left thyroid removed no cancer, 1993 EXAM MEASUREMENTS: Bone mineral densitometry was performed using the [employer] System. Bone mineral density as measured about the Lumbar spine is: ----- L1-L4(G/cm2): 1.237 T Score Values are as follows: ----- L2: 2.1 ----- L3: 2.1 ----- L4: 0.1 ----- L1-L4: 0.7 Bone mineral density has: Increased 9.7% since study of: 05/15/2016 Bone mineral density about the R hip (g/cm2): 0.811 Bone mineral density about the L hip (g/cm2): 0.818 T Score values are as follows: -----R Neck: -1.6 -----L Neck: -1.6 -----R Total: -1.8 -----L Total: -1.9 Bone mineral density has: Decreased -6.4% since study of: IMPRESSION: Osteopenia (T Score between -2.5 and -1). There is slightly increased risk of fracture and the patient may be considered for treatment. Re-Screen 2-5 years. NOTE: T-SCORE=SD OF THE YOUNG ADULT MEAN.
--- NOTE | 2020-01-04 13:37 | MM ---
Reason for exam: screening (asymptomatic). Last mammogram was performed 3 years and 10 months ago. History: Patient had first child at age 31. Physical Findings: A clinical breast exam by your physician is recommended on an annual basis and results should be correlated with mammographic findings. MG Screening Mammo w CAD Bilateral CC and MLO view(s) were taken. Prior study comparison: March 07, 2016, bilateral MG screening mammo w CAD. December 29, 2012, bilateral digital screening mammo w/CAD. The breast tissue is heterogeneously dense. This may lower the sensitivity of mammography. This finding is changed when compared with previous exams. ASSESSMENT: Incomplete: need additional imaging evaluation, BI-RAD 0 RECOMMENDATION: Special view mammogram of the right breast. If lesion persists on supplemental views, image directed ultrasound is recommended. [facility] will attempt to contact patient to return for supplemental views and ultrasound if indicated.
== END | disposition home or self-care (01) ==
LOC: RADMAMWWP 09:28
PROVIDERS: ATTEND Obstetrics & Gynecology
DX: Z12.31 Encounter for screening mammogram for malignant neoplasm of breast (principal); M85.80 Other specified disorders of bone density and structure, unspecified site
CPT/HCPCS: 77067; 77080

== ENCOUNTER → 2020-01-05 | Outpatient (CLI) | payer OTHER ==
--- NOTE | 2020-01-05 10:37 | MM ---
Reason for exam: additional evaluation requested from abnormal screening. Last mammogram was performed less than 1 month ago. History: Patient had first child at age 31. Benign cyst aspiration. Physical Findings: Nurse did not find any significant physical abnormalities on exam. MG Work Up Mamm w CAD RT Spot compression CC, CCRL, and LM view(s) were taken of the right breast. Prior study comparison: January 03, 2020, bilateral MG screening mammo w CAD. March 07, 2016, bilateral MG screening mammo w CAD. Nodularity persists lower half right right breast. Ultrasound recommended. These results were verbally communicated with the patient and result sheet given to the patient on 01/05/20. ASSESSMENT: Incomplete: need additional imaging evaluation, BI-RAD 0 RECOMMENDATION: Ultrasound of the right breast.
--- NOTE | 2020-01-05 10:38 | USB ---
Reason for exam: additional evaluation requested from abnormal screening. History: Patient had first child at age 31. Benign cyst aspiration. US Breast Workup Limited RT Right limited breast ultrasound including focal area of concern, retroareolar and axilla demonstrates a 0.3 x 0.4 x 0.3cm oval, mixed lesion at 5 o'clock and a 0.9 x 0.8 x 0.5cm oval lymph node at the axilla. These results were verbally communicated with the patient and result sheet given to the patient on 01/05/20. ASSESSMENT: Probably benign, BI-RAD 3 RECOMMENDATION: Follow-up diagnostic mammogram and ultrasound of the right breast in 6 months.
== END | disposition home or self-care (01) ==
LOC: RADMAMWWP 08:53
PROVIDERS: ATTEND Obstetrics & Gynecology
DX: R92.8 Other abnormal and inconclusive findings on diagnostic imaging of breast (principal)
CPT/HCPCS: 77065

== ENCOUNTER → 2020-07-06 | Outpatient (CLI) | payer OTHER ==
--- NOTE | 2020-07-06 13:29 | MM ---
Reason for exam: follow-up at short interval from prior study. Last mammogram was performed 6 months ago. History: Patient had first child at age 31. Benign cyst aspiration. Took hormonal contraceptives for 5 years. Physical Findings: Nurse did not find any significant physical abnormalities on exam. MG Diagnostic Mammo RT w CAD CC, MLO, spot compression MLO, spot compression CC, CCRM, and LM view(s) were taken of the right breast. Prior study comparison: January 05, 2020, right breast MG work up mamm w CAD RT. January 03, 2020, bilateral MG screening mammo w CAD. The breast tissue is heterogeneously dense. This may lower the sensitivity of mammography. Right 8mm nodule 10-12 o'clock, 5cm from nipple. Right 7mm nodule same as last scan, inferior posterior, 3.5cm from nipple. These results were verbally communicated with the patient and result sheet given to the patient on 07/06/20. ASSESSMENT: Incomplete: need additional imaging evaluation, BI-RAD 0 RECOMMENDATION: Ultrasound of the right breast.
--- NOTE | 2020-07-06 13:32 | USB ---
Reason for exam: additional evaluation requested from abnormal screening. History: Patient had first child at age 31. Benign cyst aspiration. Took hormonal contraceptives for 5 years. US Breast Limited RT Technologist: Mamta Christian Right limited breast ultrasound including focal area of concern, retroareolar and axilla demonstrates a 0.4 x 0.5 x 0.2cm hypoechoic, stable, probably benign lesion at 5 o'clock and a 0.7 x 0.7 x 0.4cm hypoechoic lesion at 12 o'clock, corresponds to nodule, probably benign, 6 month follow up recommended. These results were verbally communicated with the patient and result sheet given to the patient on 07/06/20. ASSESSMENT: Probably benign, BI-RAD 3 RECOMMENDATION: Follow-up diagnostic mammogram of both breasts in 6 months. Ultrasound of the right breast in 6 months.
== END | disposition home or self-care (01) ==
LOC: RADMAMWWP 09:37
PROVIDERS: ATTEND Obstetrics & Gynecology
DX: N63.10 Unspecified lump in the right breast, unspecified quadrant (principal); N64.59 Other signs and symptoms in breast
CPT/HCPCS: 77065

== ENCOUNTER → 2020-12-26 | Outpatient (CLI) | payer OTHER ==
--- NOTE | 2020-12-26 08:38 | MM ---
Reason for exam: follow-up at short interval from prior study. Last mammogram was performed 6 months ago. History: Patient had first child at age 31. Benign cyst aspiration. Took hormonal contraceptives for 5 years. Physical Findings: Nurse did not find any significant physical abnormalities on exam. MG Diagnostic Mammo w CAD SAURAV Bilateral CC and MLO view(s) were taken. Prior study comparison: July 06, 2020, right breast MG diagnostic mammo RT w CAD. January 05, 2020, right breast MG work up mamm w CAD RT. The breast tissue is heterogeneously dense. This may lower the sensitivity of mammography. There is chronic nodularity in the right breast. There is no discrete abnormality. These results were verbally communicated with the patient and result sheet given to the patient on 12/26/20. ASSESSMENT: Negative, BI-RAD 1 RECOMMENDATION: Routine screening mammogram of both breasts in 1 year.
--- NOTE | 2020-12-26 08:39 | USB ---
Reason for exam: follow-up at short interval from prior study. History: Patient had first child at age 31. Benign cyst aspiration. Took hormonal contraceptives for 5 years. US Breast Limited RT Right limited breast ultrasound including focal area of concern, retroareolar and axilla demonstrates no cystic or solid lesion seen. These results were verbally communicated with the patient and result sheet given to the patient on 12/26/20. ASSESSMENT: Negative, BI-RAD 1 RECOMMENDATION: Routine screening mammogram of both breasts in 1 year.
== END | disposition home or self-care (01) ==
LOC: RADMAMWWP 07:06
PROVIDERS: ATTEND Obstetrics & Gynecology
DX: R92.8 Other abnormal and inconclusive findings on diagnostic imaging of breast (principal)
CPT/HCPCS: 77066

== ENCOUNTER → 2022-06-07 | Outpatient (CLI) | payer OTHER ==
--- NOTE | 2022-06-07 16:06 | BD ---
EXAMINATION TYPE: Axial Bone Density DATE OF EXAM: 06/07/2022 CLINICAL HISTORY: 57 years old Female. ICD-10 CODE: [id number] OSTEOPENIA Height: 64.5" Weight: 143.7 FRAX RISK QUESTIONS: Alcohol (3 or more units per day): No Family History (Parent hip fracture): Yes, mother Glucocorticoids (More than 3mos): Yes, patient has asthma (Ex: prednisone, prednisolone, methylprednisolone, dexamethasone, and hydrocortisone). History of Fracture in Adulthood: No Secondary Osteoporosis: 1. Type 1 Diabetes: No 2. Hyperthyroidism: No 3. Menopause before 45: No 4. Malnutrition: No 5. Chronic liver disease: No Rheumatoid Arthritis: No Current Tobacco Use: Occasionally RISK FACTORS HISTORY OF: Hip Fracture (Right/Left): No When: Spine Fracture: No When: History of Wrist Fracture: No When: Surgery to Spine/Hip(right/left)/Wrist (right/left): No When: Family History of Osteoporosis: Yes, Mother Active: Yes Diet low in dairy products/other sources of calcium: Yes Postmenopausal woman: Yes Lost more than 2 inches in height since high school: No Frequent falls: No Poor Health: No Hyperparathyroidism: No Adrenal Insufficiency: No MEDICATIONS: Prednisone or other steroids: Yes How Long: Several years as needed for asthma Thyroid Medications: Yes Which medication: Synthroid How Long: Since 1994 Osteoporosis Medications: No Additional Medications: Synthroid, Losartan, Singular, Asthma inhaler daily, Calcium, Vitamin D, Magn esium, B12, additional supplements as needed Additional History: None EXAM MEASUREMENTS: Bone mineral densitometry was performed using the [employer] System. Bone mineral density as measured about the Lumbar spine is: ----- L1-L4(G/cm2): 1.126 T Score Values are as follows: ----- L1: -1.7 ----- L2: 0.7 ----- L3: 0.2 ----- L4: -0.9 ----- L1-L4: -0.5 Z Score Values are as follows: ----- L1: -0.7 ----- L2: 1.7 ----- L3: 1.2 ----- L4: 0.2 ----- L1-L4: 0.6 Bone mineral density has: decreased 11.1% since study of: 01/03/2020 Bone mineral density about the R hip (g/cm2): 0.720 Bone mineral density about the L hip (g/cm2): 0.775 T Score values are as follows: -----R Neck: -2.0 -----L Neck: -1.6 -----R Total: -2.3 -----L Total: -1.9 Z Score values are as follows: -----R Neck: -0.9 -----L Neck: -0.5 -----R Total: -1.5 -----L Total: -1.0 Bone mineral density has: decreased -3.9% since study of: 01/03/2020 FRAX%s: The graph provided illustrates a 9.4% chance for a major osteoporotic fx and a 2.0% chance fo r the hips probability for fx in 10 years time. IMPRESSION: Osteopenia (T Score between -2.5 and -1). There is slightly increased risk of fracture and the patient may be considered for treatment. Re-Screen 2-5 years. NOTE: T-SCORE=SD OF THE YOUNG ADULT MEAN.
--- NOTE | 2022-06-10 08:40 | MM ---
Reason for Exam: Screening (asymptomatic). Last mammogram was performed 1 year(s) and 5 month(s) ago. Patient History: Menarche at age 10. First Full-Term at age 32. Late child-bearing (after 30). Patient used Hormonal Contraceptives for 5 years. , Benign Cyst Aspiration. Risk Values: Naila 5 year model risk: 2.0%. NCI Lifetime model risk: 11.4%. Prior Study Comparison: 01/05/2020 Right Diagnostic Mammogram, [facility]. 07/06/2020 Right Diagnostic Mammogram, [facility]. 12/26/2020 Bilateral Diagnostic Mammogram, [facility]. Tissue Density: The breast tissue is heterogeneously dense. This may lower the sensitivity of mammography. Findings: Analyzed By CAD. There is no suspicious group of microcalcifications or new suspicious mass in either breast. Overall Assessment: Negative, BI-RAD 1 Management: Screening Mammogram of both breasts in 1 year. A clinical breast exam by your physician is recommended on an annual basis and results should be correlated with mammographic findings. [facility] will attempt to contact patient to return for supplemental views and ultrasound if indicated. Electronically signed and approved by: Willy Keane DO
== END | disposition home or self-care (01) ==
LOC: RADMAMWWP 09:36
PROVIDERS: ATTEND Obstetrics & Gynecology
DX: Z12.31 Encounter for screening mammogram for malignant neoplasm of breast (principal); M85.89 Other specified disorders of bone density and structure, multiple sites
CPT/HCPCS: 77067; 77080

== ENCOUNTER → 2023-06-09 | Outpatient (CLI) | payer OTHER ==
--- NOTE | 2023-06-10 14:21 | MM ---
Reason for Exam: Screening (asymptomatic). Last screening mammogram was performed 12 month(s) ago. Patient History: Menarche at age 10. First Full-Term at age 32. Late child-bearing (after 30). Patient used Hormonal Contraceptives for 5 years. , Benign Cyst Aspiration. Risk Values: Naila 5 year model risk: 2.1%. NCI Lifetime model risk: 11.2%. Prior Study Comparison: 07/06/2020 Right Diagnostic Mammogram, [facility]. 12/26/2020 Bilateral Diagnostic Mammogram, [facility]. 06/07/2022 Bilateral MG screening mammo w CAD, [facility]. Tissue Density: The breasts are heterogeneously dense, which may obscure small masses. Findings: Analyzed By CAD. There is no suspicious group of microcalcifications or new suspicious mass in either breast. Overall Assessment: Negative, BI-RAD 1 Management: Screening Mammogram of both breasts in 1 year. . Patient should continue monthly self-breast exams. A clinical breast exam by your physician is recommended on an annual basis. This exam should not preclude additional follow-up of suspicious palpable abnormalities. Note on Naila scores and lifetime risk: 1. A Naila score greater than 3% is considered moderate risk. If this is the case, consider specialist referral to assess eligibility for a risk reducing agent. 2. If overall lifetime risk for the development of breast cancer is 20% or higher, the patient may qualify for future screening with alternating mammogram and breast MRI. Electronically signed and approved by: Adrian Vega M.D. Radiologis
== END | disposition home or self-care (01) ==
LOC: RADMAMWWP 08:10
PROVIDERS: ATTEND Family Medicine
DX: Z12.31 Encounter for screening mammogram for malignant neoplasm of breast (principal)
CPT/HCPCS: 77063; 77067

== ENCOUNTER 2023-12-14 15:18 | Inpatient (IN) | payer BC, OTHER ==
[2023-12-14] MEDS ORDERED: VANCOMYCIN IV PER PHARMACY 1 EACH MISC MISCELLANE PRN (15:47)
--- NOTE | 2023-12-14 15:49 | ED ---
General Adult HPI - General Chief complaint: Recheck/Abnormal Lab/Rx Stated complaint: R leg pain/swelling Time Seen by Provider: 12/14/23 15:45 Source: patient Mode of arrival: wheelchair Limitations: no limitations - History of Present Illness Initial comments: Steffanie is a 58-year-old female who presents the ER today with complaint of not feeling well. Patient reports she has had no appetite and not been eating or drinking her well since night and yesterday she noticed some rash on her right lower extremity. Today the patient was just feeling profoundly unwell nauseated lightheaded freezing cold diaphoretic so her brought to the ER for evaluation. - Related Data Home Medications Medication Instructions Recorded Confirmed Levothyroxine Sodium [Synthroid] 50 mcg PO DAILY 10/15/16 12/14/23 Losartan [Cozaar] 50 mg PO DAILY 05/07/17 12/14/23 ALPRAZolam [Xanax] 2 mg PO BID PRN 12/14/23 12/14/23 Alendronate Sodium 70 mg PO TU 12/14/23 12/14/23 Beclomethasone Dipropionate [Qvar 2 puff INHALATION RT-BID 12/14/23 12/14/23 80mcg Redihaler] Previous Rx's Medication Instructions Recorded Albuterol Inhaler [Ventolin Hfa 2 puff INHALATION RT-Q4H PRN #1 12/19/18 Inhaler] inhaler Montelukast [Singulair] 10 mg PO HS #30 tab 12/19/18 Allergies Allergy/AdvReac Type Severity Reaction Status Date / Time No Known Allergies Allergy Verified 12/14/23 17:25 Review of Systems ROS Statement: Those systems with pertinent positive or pertinent negative responses have been documented in the HPI. ROS Other: All systems not noted in ROS Statement are negative. Past Medical History Past Medical History: COPD, GERD/Reflux, Hypertension, Thyroid Disorder History of Any Multi-Drug Resistant Organisms: None Reported Past Surgical History: Orthopedic Surgery, Uterine Ablation Additional Past Surgical History / Comment(s): Left sided thyroidectomy, rt knee surgery Past Anesthesia/Blood Transfusion Reactions: No Reported Reaction Past Psychological History: Anxiety, Depression Smoking Status: Never smoker Past Alcohol Use History: Occasional Past Drug Use History: None Reported - Past Family History Father Family Medical History: Cancer, Diabetes Mellitus Mother Family Medical History: Dementia Additional Family Medical History / Comment(s): One brother healthy 2 sisters healthy one daughter healthy one son healthy General Exam Limitations: no limitations General appearance: alert, in distress Head exam: Present: atraumatic Eye exam: Present: PERRL ENT exam: Present: mucous membranes dry Neck exam: Present: full ROM. Absent: meningismus Respiratory exam: Absent: respiratory distress Cardiovascular Exam: Present: tachycardia GI/Abdominal exam: Present: soft. Absent: distended Extremities exam: Present: full ROM, tenderness, normal capillary refill, calf tenderness Neurological exam: Present: alert, oriented X3 Psychiatric exam: Present: normal affect, normal mood Skin exam: Present: rash (erythema and bullous rash on right calf) Course Vital Signs 12/14/23 12/14/23 12/14/23 15:25 15:45 16:06 Temperature 97.5 F L Pulse Rate 119 H 121 H 124 H Respiratory 20 20 20 Rate Blood Pressure 63/39 73/45 100/52 O2 Sat by Pulse 99 96 96 Oximetry 12/14/23 12/14/23 12/14/23 16:26 17:23 17:43 Temperature 100.1 F H Pulse Rate 124 H 120 H 120 H Respiratory 20 20 Rate Blood Pressure 95/62 94/59 O2 Sat by Pulse 96 96 Oximetry EKG Findings - EKG Comments: EKG Findings:: EKG interpreted by me EKG obtained due to tachycardia EKG and obtained at 1544 rate is 118 rhythm is sinus tach normal axis, normal intervals, AR 190 QRS 80 QTc [address] elevations with mild ST depressions laterally likely demand ischemia no evidence of acute infarction. Medical Decision Making - Medical Decision Making Was pt. sent in by a medical professional or institution (, PA, OPERATIONAL INTELLIGENCE OFFICER, urgent care, hospital, or long-term...) When possible be specific @ -No Did you speak to anyone other than the patient for history (EMS, parent, family, police, friend...)? What history was obtained from this source @ -Family at bedside Did you review nursing and triage notes (agree or disagree)? Why? @ -I reviewed and agree with nursing and triage notes Were old charts reviewed (outside hosp., previous admission, EMS record, old EKG, old radiological studies, urgent care reports/EKG's, long-term records)? Report findings @ -No old charts were reviewed Differential Diagnosis (chest pain, altered mental status, abdominal pain women, abdominal pain men, vaginal bleeding, weakness, fever, dyspnea, syncope, headache, dizziness, GI bleed, back pain, seizure, CVA, palpatations, mental health)? @ -Differential Fever: Pneumonia, viral URI, endocarditis, myocarditis, pericarditis, otitis, sinusitis, peritonsillar Abscess, retropharyngeal Abscess, epiglottitis, peritonitis, appendicitis, Mya cystitis, diverticulitis, hepatitis, colitis, UTI, PID, TOA, pyelonephritis, prostatitis, epididymitis, meningitis, encephalitis, pulmonary embolism, CVA, thyroid storm, pancreatitis, adrenal crisis, cavernous sinus thrombosis, this is not meant to be an all-inclusive list. EKG interpreted by me (3pts min.). @ -As above X-rays interpreted by me (1pt min.). @ -No free air in the soft tissue CT interpreted by me (1pt min.). @ -No free air in the abdomen U/S interpreted by me (1pt. min.). @ -None done What testing was considered but not performed or refused? (CT, X-rays, U/S, labs)? Why? @ -Can be completed upon admission What meds were considered but not given or refused? Why? @ -None Did you discuss the management of the patient with other professionals (professionals i.e. , PA, OPERATIONAL INTELLIGENCE OFFICER, lab, RT, psych nurse, social service agency director, newborn hearing screener, teacher, president and chief operating officer, disability case manager)? Give summary @ -With admitting physician and ICU Was smoking cessation discussed for >3mins.? @ -No Was critical care preformed (if so, how long)? @ -45 minutes Were there social determinants of health that impacted care today? How? (Homelessness, low income, unemployed, alcoholism, drug addiction, transportation, low edu. Level, literacy, decrease access to med. care, prison, rehab)? @ -No Was there de-escalation of care discussed even if they declined (Discuss DNR or withdrawal of care, Hospice)? DNR status @ -No What co-morbidities impacted this encounter? (DM, HTN, Smoking, COPD, CAD, Cancer, CVA, ARF, Chemo, Hep., AIDS, mental health diagnosis, sleep apnea, morbid obesity)? @ -None Was patient admitted / discharged? Hospital course, mention meds given and route, prescriptions, significant lab abnormalities, going to OR and other pertinent info. @ -Admit Patient was seen and evaluated history is obtained from patient at bedside upon arrival patient was noted to be shocky likely due to sepsis or hypovolemia. Labs were obtained broad-spectrum antibiotics were given and fluid resuscitation was initiated. Patient was given IV Ofirmev for fever. Patient's blood pressure did improve with IV fluids but her heart rate remained tachycardic despite fluids and Ofirmev Patient's blood work had multiple critical abnormalities including evidence of multisystem organ failure, transaminitis elevated bilirubin acute kidney injury acidosis Blood pressure has improved to a MAP greater than 65 there is no indication for pressors at this time continued aggressive fluid resuscitation was ordered Patient is awake alert oriented drinking fluids despite her tachycardia and relatively low blood pressure. P.o. and IV potassium replacement were ordered. The patient's multisystem organ involvement relative hypotension and tachycardia I do feel she needs to be admitted to the ICU for sepsis of unknown origin. Care was discussed with Dr. Liu from the [facility] hospitalist group as well as Dr. Tee from the ICU who agree with plan for admission. Patient does not require central line or pressors at this time. Considering that the patient has both sepsis with multisystem organ failure, signs of food poisoning and a bullous rash on the right lower extremity I did question whether she had had any exposure to salt water or any seafood. Patient did have crab legs believes that was closer to 2 weeks ago and unlikely be a cause of vibrio sepsis. However given that she has this constellation of symptoms IV doxycycline was added to her broad-spectrum antibiotic regimen. Undiagnosed new problem with uncertain prognosis? @ -, Sepsis Drug Therapy requiring intensive monitoring for toxicity (Heparin, Nitro, Insulin, Cardizem)? @ -No Were any procedures done? @ -No Diagnosis/symptom? @ -Sepsis, multisystem organ failure Acute, or Chronic, or Acute on Chronic? @ -Acute Uncomplicated (without systemic symptoms) or Complicated (systemic symptoms)? @ -Complicated Side effects of treatment? @ -No Exacerbation, Progression, or Severe Exacerbation? @ -No Poses a threat to life or bodily function? How? (Chest pain, USA, NM, pneumonia, PE, COPD, DKA, ARF, appy, cholecystitis, CVA, Diverticulitis, Homicidal, Suicidal, threat to staff... and all critical care pts) @ -Yes - Lab Data Result diagrams: 12/14/23 15:51 12/14/23 15:51 Lab Results 12/14/23 12/14/23 12/14/23 Range/Units 15:43 15:51 15:51 WBC 10.0 (3.8-10.6) k/uL RBC 4.43 (3.80-5.40) m/uL Hgb 15.2 (11.4-16.0) gm/dL Hct 44.3 (34.0-46.0) % MCV 100.0 (80.0-100.0) fL MCH 34.3 (25.0-35.0) pg MCHC 34.3 (31.0-37.0) g/dL RDW 13.6 (11.5-15.5) % Plt Count 179 (150-450) k/uL MPV 8.9 Neutrophils % (Manual) 73 % Band Neuts % (Manual) 19 % Lymphocytes % (Manual) 2 % Monocytes % (Manual) 3 % Metamyelocytes % 4 % Neutrophils # (Manual) 9.20 H (1.3-7.7) k/uL Lymphocytes # (Manual) 0.20 L (1.0-4.8) k/uL Monocytes # (Manual) 0.30 (0-1.0) k/uL Metamyelocytes # (Man) 0.40 H (0) k/uL Nucleated RBCs 0 (0-0) /100 WBC Manual Slide Review Performed Toxic Granulation Present Toxic Vacuolation Present RBC Morphology Normal PT (10.0-12.5) sec INR (<1.2) APTT (22.0-30.0) sec Sodium 131 L (137-145) mmol/L Potassium 2.6 L* (3.5-5.1) mmol/L Chloride 95 L (98-107) mmol/L Carbon Dioxide 19 L (22-30) mmol/L Anion Gap 17 mmol/L BUN 41 H (7-17) mg/dL Creatinine 2.07 H (0.52-1.04) mg/dL Est GFR (CKD-EPI)AfAm 30 (>60 ml/min/1.73 sqM) Est GFR (CKD-EPI)NonAf 26 (>60 ml/min/1.73 sqM) Glucose 120 H (74-99) mg/dL POC Glucose (mg/dL) 118 H (70-110) mg/dL POC Glu Airline Manager ID José Miguel Velásquez Lactic Ac Sepsis Rflx Plasma Lactic Acid Sg (0.7-2.0) mmol/L Calcium 7.9 L (8.4-10.2) mg/dL Total Bilirubin 4.6 H (0.2-1.3) mg/dL AST 91 H (14-36) U/L ALT 37 H (4-34) U/L Alkaline Phosphatase 82 (38-126) U/L Total Protein 6.1 L (6.3-8.2) g/dL Albumin 3.5 (3.5-5.0) g/dL 12/14/23 12/14/23 12/14/23 Range/Units 15:51 16:14 16:51 WBC (3.8-10.6) k/uL RBC (3.80-5.40) m/uL Hgb (11.4-16.0) gm/dL Hct (34.0-46.0) % MCV (80.0-100.0) fL MCH (25.0-35.0) pg MCHC (31.0-37.0) g/dL RDW (11.5-15.5) % Plt Count (150-450) k/uL MPV Neutrophils % (Manual) % Band Neuts % (Manual) % Lymphocytes % (Manual) % Monocytes % (Manual) % Metamyelocytes % % Neutrophils # (Manual) (1.3-7.7) k/uL Lymphocytes # (Manual) (1.0-4.8) k/uL Monocytes # (Manual) (0-1.0) k/uL Metamyelocytes # (Man) (0) k/uL Nucleated RBCs (0-0) /100 WBC Manual Slide Review Toxic Granulation Toxic Vacuolation RBC Morphology PT 16.6 H (10.0-12.5) sec INR 1.6 H (<1.2) APTT 39.1 H (22.0-30.0) sec Sodium (137-145) mmol/L Potassium (3.5-5.1) mmol/L Chloride (98-107) mmol/L Carbon Dioxide (22-30) mmol/L Anion Gap mmol/L BUN (7-17) mg/dL Creatinine (0.52-1.04) mg/dL Est GFR (CKD-EPI)AfAm (>60 ml/min/1.73 sqM) Est GFR (CKD-EPI)NonAf (>60 ml/min/1.73 sqM) Glucose (74-99) mg/dL POC Glucose (mg/dL) (70-110) mg/dL POC Glu Airline Manager ID Lactic Ac Sepsis Rflx Y Plasma Lactic Acid Sg 4.9 H* (0.7-2.0) mmol/L Calcium (8.4-10.2) mg/dL Total Bilirubin (0.2-1.3) mg/dL AST (14-36) U/L ALT (4-34) U/L Alkaline Phosphatase (38-126) U/L Total Protein (6.3-8.2) g/dL Albumin (3.5-5.0) g/dL 12/14/23 Range/Units 18:21 WBC (3.8-10.6) k/uL RBC (3.80-5.40) m/uL Hgb (11.4-16.0) gm/dL Hct (34.0-46.0) % MCV (80.0-100.0) fL MCH (25.0-35.0) pg MCHC (31.0-37.0) g/dL RDW (11.5-15.5) % Plt Count (150-450) k/uL MPV Neutrophils % (Manual) % Band Neuts % (Manual) % Lymphocytes % (Manual) % Monocytes % (Manual) % Metamyelocytes % % Neutrophils # (Manual) (1.3-7.7) k/uL Lymphocytes # (Manual) (1.0-4.8) k/uL Monocytes # (Manual) (0-1.0) k/uL Metamyelocytes # (Man) (0) k/uL Nucleated RBCs (0-0) /100 WBC Manual Slide Review Toxic Granulation Toxic Vacuolation RBC Morphology PT (10.0-12.5) sec INR (<1.2) APTT (22.0-30.0) sec Sodium (137-145) mmol/L Potassium (3.5-5.1) mmol/L Chloride (98-107) mmol/L Carbon Dioxide (22-30) mmol/L Anion Gap mmol/L BUN (7-17) mg/dL Creatinine (0.52-1.04) mg/dL Est GFR (CKD-EPI)AfAm (>60 ml/min/1.73 sqM) Est GFR (CKD-EPI)NonAf (>60 ml/min/1.73 sqM) Glucose (74-99) mg/dL POC Glucose (mg/dL) (70-110) mg/dL POC Glu Airline Manager ID Lactic Ac Sepsis Rflx Plasma Lactic Acid Sg 2.3 H* (0.7-2.0) mmol/L Calcium (8.4-10.2) mg/dL Total Bilirubin (0.2-1.3) mg/dL AST (14-36) U/L ALT (4-34) U/L Alkaline Phosphatase (38-126) U/L Total Protein (6.3-8.2) g/dL Albumin (3.5-5.0) g/dL Critical Care Time Critical Care Time: Yes Total Critical Care Time: 45 Disposition Clinical Impression: Hypokalemia, Renal failure, Sepsis, SAMEER (acute kidney injury), Hyponatremia, Transaminitis, Multiple organ failure Disposition: ADMITTED IP TO THIS [facility] Condition: Critical Is patient prescribed a controlled substance at d/c from ED?: No Referrals: Marquis Lua DO [Primary Care Provider] - 1-2 days
[2023-12-14 15:54] LABS: Glucose,Whole Blood 118 mg/dL (70-110)
[2023-12-14] MEDS: SODIUM CHLORIDE 0.9% 500 ML 500 ML IV SCH (15:55)
[2023-12-14] MEDS: SODIUM CHLORIDE 0.9% 1,000 ML IV SCH (15:59)
[2023-12-14 16:04] LABS: HCT 44.3 % (34.0-46.0); HGB 15.2 gm/dL (11.4-16.0); MCH 34.3 pg (25.0-35.0); MCHC 34.3 g/dL (31.0-37.0); Mean Platelet Volume 8.9; Platelet Count 179 k/uL (150-450); RBC 4.43 m/uL (3.80-5.40); RDW 13.6 % (11.5-15.5)
[2023-12-14 16:14] LABS: AST 91 U/L (14-36); African American GFR (CKD) 30 (>60 ml/min/1.73 sqM); Albumin 3.5 g/dL (3.5-5.0); Alkaline Phosphatase 82 U/L (38-126); Anion Gap 17 mmol/L; Blood Urea Nitrogen 41 mg/dL (7-17); Calcium 7.9 mg/dL (8.4-10.2); Carbon Dioxide 19 mmol/L (22-30); Chloride 95 mmol/L (98-107); Glucose 120 mg/dL (74-99); Non-African American GFR(CKD) 26 (>60 ml/min/1.73 sqM); Sodium 131 mmol/L (137-145); Total Bilirubin 4.6 mg/dL (0.2-1.3); Total Protein 6.1 g/dL (6.3-8.2)
[2023-12-14] MEDS: CEFEPIME 2 GM in SODIUM CHLORIDE 0.9% 100 ML IVPB STA (16:17)
[2023-12-14 16:21] LABS: ALT 37 U/L (4-34)
[2023-12-14] MEDS: VANCOMYCIN 1,000 MG in SODIUM CHLORIDE 0.9% 250 ML IVPB STA (16:26)
[2023-12-14 16:30] LABS: Band Neutrophils % 19 %; Metamyelocytes % 4 %; Neutrophils % (M) 73 %; Nucleated Red Blood Cells 0 /100 WBC (0-0); Potassium 2.6 mmol/L (3.5-5.1); Total Cells Counted 200
[2023-12-14 16:31] LABS: RBC Morphology Normal; Toxic Granulation Present; Toxic Vacuolation Present
--- NOTE | 2023-12-14 16:34 | XR ---
EXAMINATION TYPE: XR tibia fibula RT DATE OF EXAM: 12/14/2023 4:07 PM COMPARISON: None CLINICAL INDICATION: Female, 58 years old with history of necrotizing infection soft tissue; TECHNIQUE: XR tibia fibula RT; examined in AP and lateral projections. FINDINGS: No evidence of any acute osseous pathology, joint dislocation, or soft tissue swelling is n oted. Moderate degeneration changes of the knee with osteophyte formation and joint space narrowing. IMPRESSION: 1. No evidence of acute fracture. 2. Soft tissue swelling throughout the right lower extremity. No evidence for subcutaneous lucency o r osseous erosion. [facility], , 12/14/2023 4:32 PM
[2023-12-14 17:29] LABS: INR 1.6 (<1.2); Partial Thromboplastin Time 39.1 sec (22.0-30.0); Prothrombin Time 16.6 sec (10.0-12.5)
--- NOTE | 2023-12-14 17:54 | CT ---
EXAMINATION TYPE: CT abdomen pelvis wo con DATE OF EXAM: 12/14/2023 5:36 PM COMPARISON: 05/07/2017 CLINICAL INDICATION: Female, 58 years old with history of sepsis, transaminitis, elevated bili; Abdom inal pain, sepsis, elevated bili TECHNIQUE: Axial CT abdomen pelvis wo con;Sagittal and coronal reformats were created on a separate workstation. Contrast used: mL of , (none if empty) Oral contrast used: (none if empty) CT DLP: 369 mGycm, Automated exposure control for dose reduction was used. FINDINGS: LOWER CHEST: Unremarkable ABDOMEN LIVER: Unremarkable GALLBLADDER AND BILE DUCTS: Higher density within the gallbladder lumen possibly representing biliary sludge. PANCREAS: Unremarkable. SPLEEN: Unremarkable. Scattered peripherally calcified probable traumatic pseudocyst. ADRENAL GLANDS: Unremarkable. KIDNEYS AND URETERS: No evidence of hydronephrosis or renal calculus. The ureters are unremarkable. Right renal cortical probable cyst. PELVIS BLADDER: No evidence for wall thickening or mass given limitations of exam. REPRODUCTIVE: Unremarkable. ABDOMEN & PELVIS STOMACH AND BOWEL: . Scattered diverticula are noted throughout the colon. No evidence of bowel obstr uction. PERITONEUM/RETROPERITONEUM: No evidence of pneumoperitoneum or free fluid. VASCULATURE: Moderate atherosclerotic calcifications are present throughout the abdominal aorta and i ts branches. No evidence of aortic aneurysm. MUSCULOSKELETAL: No acute osseous abnormalities LYMPH NODES: No gross evidence for lymphadenopathy. SOFT TISSUE/ABDOMINAL WALL: Unremarkable IMPRESSION: 1. Relatively unremarkable appearance of the liver on noncontrast imaging. No evidence for ductal di lation this limited noncontrast exam. 2. High density in the gallbladder lumen correlate for biliary sludge. 3. Splenic probable traumatic pseudocyst correlate with history of trauma. Similar to 2018. 4. Colonic diverticulosis. [facility], , 12/14/2023 5:52 PM
[2023-12-14] MEDS: ACETAMINOPHEN IV (For NPO) 1,000 MG in EMPTY BAG 1 BAG IVPB STA (17:59)
[2023-12-14] MEDS: POTASSIUM CHLORIDE 10 MEQ in WATER FOR INJECTION 1 100ML.BAG IVPB STA (18:00)
[2023-12-14] MEDS: .ACETAMINOPHEN IV (PEDS) 850 MG in EMPTY BAG 1 BAG IVPB STA (18:03)
[2023-12-14] MEDS: SODIUM CHLORIDE 0.9% 1,000 ML IV ONE (18:57)
[2023-12-14] MEDS: POTASSIUM CHLORIDE ER 20 MEQ TAB.ER PO STA (19:03)
[2023-12-14] MEDS ORDERED: NALOXONE 0.4 MG/ML 1 ML VIAL IV PRN (19:36)
[2023-12-14] MEDS: PANTOPRAZOLE 40 MG/10 ML VIAL IV SCH (19:53)
[2023-12-14 20:02] LABS: Appearance,Urine Cloudy (Clear); Bacteria,Urine Rare /hpf; Bilirubin,Urine Negative (Negative); Blood,Urine Moderate (Negative); Color,Urine Yellow; Glucose,Urine (UA) Negative (Negative); Hyaline Casts,Urine 31 /lpf (0-2); Ketones,Urine Negative (Negative); Leukocyte Esterase,Urine Moderate (Negative); Mucus,Urine Rare /hpf; Nitrite,Urine Negative (Negative); Protein,Urine 1+ (Negative); RBC,Urine 2 /hpf (0-5); Specific Gravity,Urine 1.015 (1.001-1.035); Squamous Epithelial Cell,Urine 11 /hpf (0-4); Urobilinogen,Urine <2.0 mg/dL (<2.0); WBC,Urine 41 /hpf (0-5)
--- NOTE | 2023-12-14 20:45 | XR ---
EXAMINATION TYPE: XR chest 1V DATE OF EXAM: 12/14/2023 8:25 PM COMPARISON: Chest radiographs from 01/03/2020 CLINICAL INDICATION: Female, 58 years old with history of sepsis; [facility] TECHNIQUE: XR chest 1V Frontal view of the chest. FINDINGS: Lungs/Pleura: There is flattening of the diaphragm with increased lucency of the lungs. No evidence o f pneumothorax, pleural effusion or focal consolidation. Pulmonary vascularity: Unremarkable. Heart/mediastinum: Cardiomediastinal silhouette is unremarkable. Musculoskeletal: No acute osseous pathology. IMPRESSION: 1. No acute cardiopulmonary disease process. 2. COPD changes. [facility], , 12/14/2023 8:42 PM
[2023-12-14] MEDS: DOXYCYCLINE 100 MG in SODIUM CHLORIDE 0.9% 100 ML IVPB SCH (21:16)
[2023-12-14] MEDS: HEPARIN SODIUM,PORCINE 5,000 UNIT/ML 1 ML VIAL SQ SCH (23:58)
[2023-12-15] MEDS: NOREPINEPHRINE 4 MG in SODIUM CHLORIDE 0.9% 250 ML IV SCH (01:25)
--- NOTE | 2023-12-15 01:32 | US ---
EXAM: US Duplex Right Lower Extremity Veins CLINICAL HISTORY: ITS.REASON US Reason: rule out DVT TECHNIQUE: Real-time duplex ultrasound scan of the right lower extremity veins integrating B-mode two-dimensional vascular structure, Doppler spectral analysis, color flow Doppler imaging and compression. COMPARISON: No relevant prior studies available. FINDINGS: Deep veins: No DVT in the visualized common femoral, femoral, proximal deep femoral or popliteal veins. The veins demonstrate normal color flow, are normally compressible, with normal phasic flow and/or augmentation response. Superficial veins: No thrombus in the visualized great saphenous vein. Soft tissues: Medial posterior knee complex fluid collection = 1.4 x 1. 6 x 1.2 cm IMPRESSION: No DVT. Medial posterior knee complex fluid collection = 1.4 x 1.6 x 1. 2 cm
--- NOTE | 2023-12-15 03:00 | P.CNPUL ---
History of Present Illness Consult date: 12/15/23 Requesting physician: Mamta Parker Reason for consult: other (ICU management, sepsis/septic shock) Chief complaint: Generalized weakness, fever History of present illness: Patient is a 58-year-old female with past medical history significant for partial thyroidectomy, hypothyroidism, hypertension, anxiety, and eosinophilic asthma. Primary care provider is Dr. Lua. She follows with Dr. Rodriguez for management of her asthma. She is currently receiving Fasenra injections. Also, uses Qvar inhaler and as needed albuterol inhaler. Starting Friday, the patient noticed right lower extremity redness and warmth and pain. Developed worsening generalized weakness and fever. She has had associated nausea, vomiting, and diarrhea. Reduced oral intake. Admits to being dizzy on standing. She is currently being evaluated in the ED, trauma bay 1. She was hypotensive on arrival. I am told she has received a total of 3 L of normal saline bolus. She is alert and oriented. Remains hypotensive, blood pressure currently 86/45 mmHg. Heart rate is tachycardic around 120 bpm. She will likely require a norepinephrine infusion. Her right lower extremity is outlined. He is edematous and erythemic and blotchy. Extremity is hot to palpation. On the posterior aspect of the calf there is a centimeter shallow ulceration without significant drainage. She does not recall any injuries to this extremity. Denies history of skin or MRSA infections. There is good distal circulation. CBC: WBC count 10, hemoglobin 15.2, hematocrit 44.3, platelets 179. Abnormal coagulation profile: PT 16.6, INR 1.6, APTT 39.1. CMP: Sodium 131, potassium 2.6, chloride 95, serum bicarb 19, BUN 41, creatinine 2.07, glucose 120. Lactic was 4.9 and is down to 1.5. LFTs mildly elevated. Urinalysis was a contaminated sample. Patient denies any urinary complaints. Chest x-ray does not show any acute cardiopulmonary process. A CT of the abdomen and pelvis demonstrating a relatively unremarkable appearance of the liver. No evidence of ductal dilation. High density in the gallbladder lumen. 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 Colonic diverticulosis without diverticulitis. Right tibia/fibula x-ray did not show any evidence of acute fracture. Soft tissue swelling throughout the right lower extremity. Without subcutaneous lucency or osseous erosion. I suspect cellulitis/sepsis. She was febrile on arrival to the ED with a Tmax of 100.1 F. Empirically covered on vancomycin and Zosyn. Review of Systems Constitutional: Reports chills, Reports fever, Reports weakness, Denies night sweats, Denies poor appetite, Denies weight gain, Denies weight loss Ears, nose, mouth and throat: Denies headache, Denies nasal congestion, Denies nasal discharge, Denies post-nasal drip, Denies sinus pain, Denies sinus pressure, Denies sore throat Cardiovascular: Reports leg edema, Denies chest pain, Denies lightheadedness, Denies orthopnea, Denies palpitations, Denies paroxysmal nocturnal dyspnea, Denies syncope Respiratory: Reports cough, Denies cough with sputum, Denies dyspnea, Denies hemoptysis, Denies pain, Denies respiratory infections, Denies wheezing Gastrointestinal: Reports diarrhea, Reports loss of appetite, Reports nausea, Reports vomiting, Denies abdominal pain, Denies hematemesis Genitourinary: Denies difficulty voiding, Denies dysuria, Denies flank pain, Denies incomplete emptying, Denies kidney stones, Denies urinary frequency Musculoskeletal: Denies limitation of motion Integumentary: Reports as per HPI Neurological: Denies seizures, Denies syncope Psychiatric: Reports anxiety, Denies depression, Denies suicidal ideation Past Medical History Past Medical History: COPD, GERD/Reflux, Hypertension, Thyroid Disorder History of Any Multi-Drug Resistant Organisms: None Reported Past Surgical History: Orthopedic Surgery, Uterine Ablation Additional Past Surgical History / Comment(s): Left sided thyroidectomy, rt knee surgery Past Anesthesia/Blood Transfusion Reactions: No Reported Reaction Past Psychological History: Anxiety, Depression Smoking Status: Never smoker Past Alcohol Use History: Occasional Past Drug Use History: None Reported - Past Family History Father Family Medical History: Cancer, Diabetes Mellitus Mother Family Medical History: Dementia Additional Family Medical History / Comment(s): One brother healthy 2 sisters healthy one daughter healthy one son healthy Medications and Allergies Home Medications Medication Instructions Recorded Confirmed Type Levothyroxine Sodium [Synthroid] 50 mcg PO DAILY 10/15/16 12/14/23 History Losartan [Cozaar] 50 mg PO DAILY 05/07/17 12/14/23 History Albuterol Inhaler [Ventolin Hfa 2 puff INHALATION RT-Q4H PRN #1 12/19/18 12/14/23 Rx Inhaler] inhaler Montelukast [Singulair] 10 mg PO HS #30 tab 12/19/18 12/14/23 Rx ALPRAZolam [Xanax] 2 mg PO BID PRN 12/14/23 12/14/23 History Alendronate Sodium 70 mg PO TU 12/14/23 12/14/23 History Beclomethasone Dipropionate [Qvar 2 puff INHALATION RT-BID 12/14/23 12/14/23 History 80mcg Redihaler] Allergies Allergy/AdvReac Type Severity Reaction Status Date / Time No Known Allergies Allergy Verified 12/14/23 17:25 Physical Exam Vitals: Vital Signs Temp Pulse Resp BP Pulse Ox 12/15/23 01:25 123 H 18 91/57 100 12/15/23 00:01 99.5 F 120 H 18 86/45 100 12/14/23 23:35 123 H 18 103/61 96 12/14/23 22:38 121 H 18 80/50 94 L 12/14/23 21:20 98.5 F 120 H 18 80/61 12/14/23 20:26 124 H 18 96/60 12/14/23 19:28 99.9 F H 128 H 16 103/60 94 L 12/14/23 19:02 89/59 12/14/23 18:54 99.6 F 128 H 20 97/61 96 12/14/23 17:43 100.1 F H 120 H 12/14/23 17:23 120 H 20 94/59 96 12/14/23 16:26 124 H 20 95/62 96 12/14/23 16:06 124 H 20 100/52 96 12/14/23 15:45 121 H 20 73/45 96 12/14/23 15:25 97.5 F L 119 H 20 63/39 99 Intake and Output 12/14/23 12/14/23 12/15/23 14:59 22:59 06:59 Other: Weight 56.699 kg GENERAL EXAM: Alert, 58-year-old white female, appears fatigued, comfortable in no apparent distress. HEAD: Normocephalic and atraumatic EYES: Normal reaction of pupils, equal size. NOSE: Clear with pink turbinates. THROAT: No erythema or exudates. NECK: No masses, no JVD. CHEST: No chest wall deformity. LUNGS: Equal air entry with no crackles, wheeze, rhonchi or dullness. Room air. No conversational dyspnea or accessory muscle use.. CVS: S1 and S2 normal with no audible murmur, regular rhythm. No extra heart sounds ABDOMEN: No hepatosplenomegaly, active bowel sounds, no guarding or rigidity. SPINE: No scoliosis or deformity SKIN: Right lower extremity is edematous, erythemic, and hot. There is a sh allow centimeter ulceration on the posterior aspect of the calf. No significant drainage. This extremity is outlined CENTRAL NERVOUS SYSTEM: No focal deficits, tone is normal in all 4 extremities. EXTREMITIES: Left lower extremity is without peripheral edema, clubbing, or cyanosis. Peripheral dorsalis pedal/posterior tibial pulses 2+ Results - Laboratory Findings CBC and BMP: 12/14/23 15:51 12/14/23 15:51 PT/INR, D-dimer PT 16.6 sec (10.0-12.5) H 12/14/23 16:51 INR 1.6 (<1.2) H 12/14/23 16:51 Abnormal lab findings: Abnormal Labs 12/14/23 12/14/23 12/14/23 15:43 15:51 15:51 Neutrophils # (Manual) 9.20 H Lymphocytes # (Manual) 0.20 L Metamyelocytes # (Man) 0.40 H PT INR APTT Sodium 131 L Potassium 2.6 L* Chloride 95 L Carbon Dioxide 19 L BUN 41 H Creatinine 2.07 H Glucose 120 H POC Glucose (mg/dL) 118 H Plasma Lactic Acid Sg Calcium 7.9 L Total Bilirubin 4.6 H AST 91 H ALT 37 H Total Protein 6.1 L Urine Appearance Urine Protein Urine Blood Ur Leukocyte Esterase Urine WBC Urine WBC Clumps Ur Squamous Epith Cells Urine Bacteria Hyaline Casts Urine Mucus 12/14/23 12/14/23 12/14/23 15:51 16:51 18:21 Neutrophils # (Manual) Lymphocytes # (Manual) Metamyelocytes # (Man) PT 16.6 H INR 1.6 H APTT 39.1 H Sodium Potassium Chloride Carbon Dioxide BUN Creatinine Glucose POC Glucose (mg/dL) Plasma Lactic Acid Sg 4.9 H* 2.3 H* Calcium Total Bilirubin AST ALT Total Protein Urine Appearance Urine Protein Urine Blood Ur Leukocyte Esterase Urine WBC Urine WBC Clumps Ur Squamous Epith Cells Urine Bacteria Hyaline Casts Urine Mucus 12/14/23 19:51 Neutrophils # (Manual) Lymphocytes # (Manual) Metamyelocytes # (Man) PT INR APTT Sodium Potassium Chloride Carbon Dioxide BUN Creatinine Glucose POC Glucose (mg/dL) Plasma Lactic Acid Sg Calcium Total Bilirubin AST ALT Total Protein Urine Appearance Cloudy H Urine Protein 1+ H Urine Blood Moderate H Ur Leukocyte Esterase Moderate H Urine WBC 41 H Urine WBC Clumps Occasional H Ur Squamous Epith Cells 11 H Urine Bacteria Rare H Hyaline Casts 31 H Urine Mucus Rare H - Diagnostic Findings Chest x-ray: image reviewed Assessment and Plan Assessment: Suspect cellulitis of the right lower extremity Sepsis/hypotension/septic shock, secondary to above Anion gap metabolic acidosis and lactic acidosis, improving Acute febrile illness Nausea, vomiting, diarrhea; no acute abdominal process noted on abdominal/pelvis CT Acute kidney injury, secondary to combination of severe dehydration and hypot ension with ATN Severe hypokalemia, being replaced per protocol Mild transaminitis, secondary to hypotension and shock History of partial thyroidectomy and secondary hypothyroidism History of hypertension Eosinophilic asthma, currently receives Fasenra injections outpatient, appears stable History of anxiety Plan: Patient's medications, labs, imaging reviewed Patient's blood pressure remains hypotensive, despite aggressive fluid resuscitation with I am told a total of 3 L normal saline bolus. She is going to be started on low-dose norepinephrine Continue IV maintenance fluids at 130 mL/h Blood cultures are pending Obtain wound cultures Obtain venous Doppler of right lower extremity Continue empiric broad-spectrum antibiotics, with MRSA coverage Monitor and replace electrolytes per protocol GI prophylaxis: Protonix DVT prophylaxis: Heparin subcu Patient is going to be admitted to the intensive care unit once bed available I have personally seen and examined the patient, performed the documentation and the assessment and plan as written. Number of minutes spent on the visit:20 Time with Patient: Greater than 30
[2023-12-15] MEDS ORDERED: Potassium Replacement Protocol 1 EACH MISC MISCELLANE PRN (03:49)
[2023-12-15] MEDS: POTASSIUM CHLORIDE 10 MEQ in WATER FOR INJECTION 1 100ML.BAG IVPB SCH (04:30)
[2023-12-15] MEDS ORDERED: Magnesium Replacement Protocol 1 EACH MISC MISCELLANE PRN (04:42)
[2023-12-15] MEDS: MAGNESIUM SULFATE-D5W PMX 1 GM in DEXTROSE/WATER 1 100ML.BAG IVPB SCH (04:59)
[2023-12-15 07:01] LABS: HCT 39.2 % (34.0-46.0); HGB 13.1 gm/dL (11.4-16.0); MCH 34.5 pg (25.0-35.0); MCHC 33.4 g/dL (31.0-37.0); MCV 103.4 fL (80.0-100.0); Macrocytosis Slight; Mean Platelet Volume 8.7; Platelet Count 105 k/uL (150-450); RBC 3.79 m/uL (3.80-5.40); RDW 13.2 % (11.5-15.5); WBC 10.2 k/uL (3.8-10.6)
[2023-12-15 07:21] LABS: African American GFR (CKD) 37 (>60 ml/min/1.73 sqM); Anion Gap 12 mmol/L; Blood Urea Nitrogen 38 mg/dL (7-17); Carbon Dioxide 11 mmol/L (22-30); Chloride 111 mmol/L (98-107); Glucose 52 mg/dL (74-99); Non-African American GFR(CKD) 32 (>60 ml/min/1.73 sqM); Potassium 2.9 mmol/L (3.5-5.1); Sodium 134 mmol/L (137-145)
[2023-12-15 07:23] LABS: Calcium 6.1 mg/dL (8.4-10.2)
[2023-12-15 07:59] LABS: Glucose,Whole Blood 77 mg/dL (70-110)
[2023-12-15] MEDS: PIPERACILLIN-TAZOBACTAM 3.375 GM in SODIUM CHLORIDE 0.9% 100 ML IVPB SCH (08:04)
[2023-12-15] MEDS: BUDESONIDE 0.5 MG/2 ML NEBU INHALATION SCH (08:35)
[2023-12-15] MEDS ORDERED: ALBUTEROL NEBULIZED 2.5 MG/3 ML INHALATION PRN (09:26)
[2023-12-15 09:34] LABS: Band Neutrophils % 23 %; Neutrophils % (M) 76 %; Nucleated Red Blood Cells 0 /100 WBC (0-0); Total Cells Counted 100
--- NOTE | 2023-12-15 11:33 | P.HPIM ---
History of Present Illness 58-year-old female came to hospital with complaints of right lower extremity redness warmth and pain which apparently improved significantly today. Patient has a wound on the posterior aspect of the mid calf area. Patient was later f ound to be septic hypotensive admitted to ICU with broad-spectrum antibiotics vancomycin and Zosyn. Chest x-ray did not show any significant abnormality, urine analysis is abnormal with bacteria and squamous epithelial cells appear to be a contaminated urine sample. Patient had fever and mild leukocytosis venous Doppler showed fluid collection in the knee area and CT of the abdomen pelvis showed biliary sludge and patient is tachycardic patient is presently on pressor support. Patient is also having diarrhea before she came in which improved but still having diarrhea., Hyponatremic on admission presently hyponatremic and hyperchloremic elevated serum creatinine of 2.7 improving presently 1.7 to the baseline creatinine around 0.7. REVIEW OF SYSTEMS: All other systems are negative except those mentioned in the HPI PHYSICAL EXAMINATION: GENERAL: The patient is alert and oriented x3, not in any acute distress. Well developed, well nourished. HEENT: Pupils are round and equally reacting to light. EOMI. No scleral icterus. No conjunctival pallor. Normocephalic, atraumatic. No pharyngeal erythema. No thyromegaly. CARDIOVASCULAR: S1 and S2 present. No murmurs, rubs, or gallops. PULMONARY: Chest is clear to auscultation, no wheezing or crackles. ABDOMEN: Soft, nontender, nondistended, normoactive bowel sounds. No palpable organomegaly. MUSCULOSKELETAL: No joint swelling or deformity. EXTREMITIES: No cyanosis, clubbing, or pedal edema. NEUROLOGICAL: Gross neurological examination did not reveal any focal deficits. SKIN: Cellulitis of the right lower extremity with wound in the posterior aspect of the mid calf area Assessment and plan -Septic shock etiology of septic shock is not clear cellulitis can be the source patient is having diarrhea but abdominal CT showed biliary sludge source is not clear will consult infectious disease continue with broad-spectrum antibiotics. -Cellulitis of the right lower extremity with a wound: As mentioned above patient is on broad-spectrum antibiotics -Acute renal failure: Possibly acute tubular necrosis with a competent of urine ischemia IV fluids will be continued but will be changed to 3 A of sodium bicarbonate in D5 as patient is hyperchloremic -Anion gap metabolic acidosis secondary lactic acidosis -Non-anion gap develop acidosis secondary to hyperchloremia change IV fluids as mentioned above -Diarrhea: May need to obtain C. difficile if she continues to have diarrhea -Hypokalemia: 6 secondary to nausea vomiting diarrhea potassium replaced presently patient is also receiving IV fluids which can make her potassium go down. -Transaminitis secondary to sepsis -Hypothyroidism -Hypertension patient is presently hypotensive -Asthma without any acute exacerbation DVT prophylaxis: Subcutaneous heparin Past Medical History Past Medical History: COPD, GERD/Reflux, Hypertension, Thyroid Disorder History of Any Multi-Drug Resistant Organisms: None Reported Past Surgical History: Orthopedic Surgery, Uterine Ablation Additional Past Surgical History / Comment(s): Left sided thyroidectomy, rt knee surgery Past Anesthesia/Blood Transfusion Reactions: No Reported Reaction Past Psychological History: Anxiety, Depression Smoking Status: Current some day smoker Past Alcohol Use History: Occasional Additional Past Alcohol Use History / Comment(s): smoker off and on 10 years, currently smokes about 1/2ppd Past Drug Use History: None Reported - Past Family History Father Family Medical History: Cancer, Diabetes Mellitus Mother Family Medical History: Dementia Additional Family Medical History / Comment(s): One brother healthy 2 sisters healthy one daughter healthy one son healthy Medications and Allergies Home Medications Medication Instructions Recorded Confirmed Type Levothyroxine Sodium [Synthroid] 50 mcg PO DAILY 10/15/16 12/14/23 History Losartan [Cozaar] 50 mg PO DAILY 05/07/17 12/14/23 History Albuterol Inhaler [Ventolin Hfa 2 puff INHALATION RT-Q4H PRN #1 12/19/18 12/14/23 Rx Inhaler] inhaler Montelukast [Singulair] 10 mg PO HS #30 tab 12/19/18 12/14/23 Rx ALPRAZolam [Xanax] 2 mg PO BID PRN 12/14/23 12/14/23 History Alendronate Sodium 70 mg PO TU 12/14/23 12/14/23 History Beclomethasone Dipropionate [Qvar 2 puff INHALATION RT-BID 12/14/23 12/14/23 History 80mcg Redihaler] Allergies Allergy/AdvReac Type Severity Reaction Status Date / Time No Known Allergies Allergy Verified 12/14/23 17:25 Physical Exam Vitals: Vital Signs Temp Pulse Resp BP Pulse Ox 12/15/23 11:00 120 H 22 103/77 96 12/15/23 10:45 117 H 18 96/68 98 12/15/23 10:30 113 H 22 100/63 94 L 12/15/23 10:15 113 H 20 103/58 94 L 12/15/23 10:00 112 H 23 98/58 95 12/15/23 09:45 112 H 18 88/58 96 12/15/23 09:30 115 H 20 88/58 95 12/15/23 09:15 110 H 16 96/59 97 12/15/23 09:00 112 H 16 95/54 96 12/15/23 08:45 111 H 17 99/66 97 12/15/23 08:42 114 H 12/15/23 08:35 112 H 12/15/23 08:30 114 H 23 91/63 97 12/15/23 08:15 116 H 18 91/63 96 12/15/23 08:00 97.9 F 115 H 23 102/65 97 12/15/23 07:51 120 H 19 99/56 98 12/15/23 07:06 117 H 18 109/45 96 12/15/23 06:27 120 H 18 97/56 98 12/15/23 05:33 108 H 16 71/41 12/15/23 05:15 97.8 F 108 H 16 71/39 97 12/15/23 04:05 117 H 16 105/52 96 12/15/23 03:00 122 H 16 80/39 96 12/15/23 02:35 118 H 16 89/57 98 12/15/23 01:25 123 H 18 91/57 100 12/15/23 00:01 99.5 F 120 H 18 86/45 100 12/14/23 23:35 123 H 18 103/61 96 12/14/23 22:38 121 H 18 80/50 94 L 12/14/23 21:20 98.5 F 120 H 18 80/61 12/14/23 20:26 124 H 18 96/60 12/14/23 19:28 99.9 F H 128 H 16 103/60 94 L 12/14/23 19:02 89/59 12/14/23 18:54 99.6 F 128 H 20 97/61 96 12/14/23 17:43 100.1 F H 120 H 12/14/23 17:23 120 H 20 94/59 96 12/14/23 16:26 124 H 20 95/62 96 12/14/23 16:06 124 H 20 100/52 96 12/14/23 15:45 121 H 20 73/45 96 12/14/23 15:25 97.5 F L 119 H 20 63/39 99 Intake and Output 12/14/23 12/15/23 12/15/23 22:59 06:59 14:59 Intake Total 39.063 1606.195 Output Total 300 Balance 39.063 1306.195 Intake: IV 1020 Magnesium Sulfate-D5w Pmx 100 1 gm In Dextrose/Water 1 100ml.bag @ 100 mls/hr IVPB Q1H JAZMIN Rx#: [id number] Piperacillin-Tazobactam 3 100 .375 gm In Sodium Chloride 0.9% 100 ml @ 25 mls/hr IVPB Q12HR JAZMIN Rx #:[id number] Potassium Chloride 10 meq 300 In Water For Injection 1 100ml.bag @ 100 mls/hr IVPB Q1HR JAZMIN Rx#: [id number] Sodium Chloride 0.9% 1, 520 000 ml @ 130 mls/hr IV . Q7H42M JAZMIN Rx#:[id number] Intake, IV Titration 39.063 86.195 Amount Norepinephrine 4 mg In 39.063 86.195 Sodium Chloride 0.9% 250 ml @ 0.03 MCG/KG/MIN 6. 481 mls/hr IV .Q24H JAZMIN Rx#:[id number] Oral 500 Output: Urine 300 Other: # Voids 1 Weight 56.699 kg 62.3 kg 62.3 kg Results CBC & Chem 7: 12/15/23 06:04 12/15/23 06:04 Labs: Abnormal Lab Results - Last 24 Hours (Table) 12/14/23 12/14/23 12/14/23 Range/Units 15:43 15:51 15:51 RBC (3.80-5.40) m/uL MCV (80.0-100.0) fL Plt Count (150-450) k/uL Neutrophils # (Manual) 9.20 H (1.3-7.7) k/uL Lymphocytes # (Manual) 0.20 L (1.0-4.8) k/uL Metamyelocytes # (Man) 0.40 H (0) k/uL PT (10.0-12.5) sec INR (<1.2) APTT (22.0-30.0) sec Sodium 131 L (137-145) mmol/L Potassium 2.6 L* (3.5-5.1) mmol/L Chloride 95 L (98-107) mmol/L Carbon Dioxide 19 L (22-30) mmol/L BUN 41 H (7-17) mg/dL Creatinine 2.07 H (0.52-1.04) mg/dL Glucose 120 H (74-99) mg/dL POC Glucose (mg/dL) 118 H (70-110) mg/dL Plasma Lactic Acid Sg (0.7-2.0) mmol/L Calcium 7.9 L (8.4-10.2) mg/dL Magnesium (1.6-2.3) mg/dL Total Bilirubin 4.6 H (0.2-1.3) mg/dL AST 91 H (14-36) U/L ALT 37 H (4-34) U/L Total Protein 6.1 L (6.3-8.2) g/dL Urine Appearance (Clear) Urine Protein (Negative) Urine Blood (Negative) Ur Leukocyte Esterase (Negative) Urine WBC (0-5) /hpf Urine WBC Clumps (None) /hpf Ur Squamous Epith Cells (0-4) /hpf Urine Bacteria (None) /hpf Hyaline Casts (0-2) /lpf Urine Mucus (None) /hpf 12/14/23 12/14/23 12/14/23 Range/Units 15:51 16:51 18:21 RBC (3.80-5.40) m/uL MCV (80.0-100.0) fL Plt Count (150-450) k/uL Neutrophils # (Manual) (1.3-7.7) k/uL Lymphocytes # (Manual) (1.0-4.8) k/uL Metamyelocytes # (Man) (0) k/uL PT 16.6 H (10.0-12.5) sec INR 1.6 H (<1.2) APTT 39.1 H (22.0-30.0) sec Sodium (137-145) mmol/L Potassium (3.5-5.1) mmol/L Chloride (98-107) mmol/L Carbon Dioxide (22-30) mmol/L BUN (7-17) mg/dL Creatinine (0.52-1.04) mg/dL Glucose (74-99) mg/dL POC Glucose (mg/dL) (70-110) mg/dL Plasma Lactic Acid Sg 4.9 H* 2.3 H* (0.7-2.0) mmol/L Calcium (8.4-10.2) mg/dL Magnesium (1.6-2.3) mg/dL Total Bilirubin (0.2-1.3) mg/dL AST (14-36) U/L ALT (4-34) U/L Total Protein (6.3-8.2) g/dL Urine Appearance (Clear) Urine Protein (Negative) Urine Blood (Negative) Ur Leukocyte Esterase (Negative) Urine WBC (0-5) /hpf Urine WBC Clumps (None) /hpf Ur Squamous Epith Cells (0-4) /hpf Urine Bacteria (None) /hpf Hyaline Casts (0-2) /lpf Urine Mucus (None) /hpf 12/14/23 12/15/23 12/15/23 Range/Units 19:51 03:11 03:11 RBC (3.80-5.40) m/uL MCV (80.0-100.0) fL Plt Count (150-450) k/uL Neutrophils # (Manual) (1.3-7.7) k/uL Lymphocytes # (Manual) (1.0-4.8) k/uL Metamyelocytes # (Man) (0) k/uL PT (10.0-12.5) sec INR (<1.2) APTT (22.0-30.0) sec Sodium (137-145) mmol/L Potassium 2.6 L* (3.5-5.1) mmol/L Chloride (98-107) mmol/L Carbon Dioxide (22-30) mmol/L BUN (7-17) mg/dL Creatinine (0.52-1.04) mg/dL Glucose (74-99) mg/dL POC Glucose (mg/dL) (70-110) mg/dL Plasma Lactic Acid Gs (0.7-2.0) mmol/L Calcium (8.4-10.2) mg/dL Magnesium 0.9 L* (1.6-2.3) mg/dL Total Bilirubin (0.2-1.3) mg/dL AST (14-36) U/L ALT (4-34) U/L Total Protein (6.3-8.2) g/dL Urine Appearance Cloudy H (Clear) Urine Protein 1+ H (Negative) Urine Blood Moderate H (Negative) Ur Leukocyte Esterase Moderate H (Negative) Urine WBC 41 H (0-5) /hpf Urine WBC Clumps Occasional H (None) /hpf Ur Squamous Epith Cells 11 H (0-4) /hpf Urine Bacteria Rare H (None) /hpf Hyaline Casts 31 H (0-2) /lpf Urine Mucus Rare H (None) /hpf 12/15/23 12/15/23 Range/Units 06:04 06:04 RBC 3.79 L (3.80-5.40) m/uL MCV 103.4 H (80.0-100.0) fL Plt Count 105 L (150-450) k/uL Neutrophils # (Manual) 10.00 H (1.3-7.7) k/uL Lymphocytes # (Manual) (1.0-4.8) k/uL Metamyelocytes # (Man) (0) k/uL PT (10.0-12.5) sec INR (<1.2) APTT (22.0-30.0) sec Sodium 134 L (137-145) mmol/L Potassium 2.9 L (3.5-5.1) mmol/L Chloride 111 H (98-107) mmol/L Carbon Dioxide 11 L (22-30) mmol/L BUN 38 H (7-17) mg/dL Creatinine 1.72 H (0.52-1.04) mg/dL Glucose 52 L (74-99) mg/dL POC Glucose (mg/dL) (70-110) mg/dL Plasma Lactic Acid Sg (0.7-2.0) mmol/L Calcium 6.1 L* (8.4-10.2) mg/dL Magnesium (1.6-2.3) mg/dL Total Bilirubin (0.2-1.3) mg/dL AST (14-36) U/L ALT (4-34) U/L Total Protein (6.3-8.2) g/dL Urine Appearance (Clear) Urine Protein (Negative) Urine Blood (Negative) Ur Leukocyte Esterase (Negative) Urine WBC (0-5) /hpf Urine WBC Clumps (None) /hpf Ur Squamous Epith Cells (0-4) /hpf Urine Bacteria (None) /hpf Hyaline Casts (0-2) /lpf Urine Mucus (None) /hpf Thrombosis Risk Factor Assmnt - Choose All That Apply Any of the Below Risk Factors Present?: Yes Each Factor Represents 1 point: Age 41-60 years, Sepsis (< 1month) Other Risk Factors: No Other congenital or acquired thrombophilia - If yes, enter type in comment: No Thrombosis Risk Factor Assessment Total Risk Factor Score: 2 Thrombosis Risk Factor Assessment Level: Low Risk
[2023-12-15] MEDS ORDERED: VANCOMYCIN 1,000 MG in SODIUM CHLORIDE 0.9% 250 ML IVPB SCH (12:00)
[2023-12-15] MEDS: DEXTROSE 5% IN WATER 1,000 ML with SODIUM BICARB (1 MEQ/ML) 150 ML IV SCH (12:22)
[2023-12-15] MEDS: AMPICILLIN-SULBACTAM 3 GM in SODIUM CHLORIDE 0.9% 100 ML IVPB SCH ×2 (12:49→20:32)
[2023-12-15] MEDS: NYSTATIN 100,000UNIT/GM CREAM 30 GM TUBE TOPICAL SCH (12:50)
[2023-12-15 13:48] LABS: Magnesium 2.4 mg/dL (1.6-2.3); Potassium 3.2 mmol/L (3.5-5.1)
[2023-12-15] MEDS ORDERED: ALPRAZolam 1 MG TAB PO PRN (14:14)
[2023-12-15] MEDS: POTASSIUM CHLORIDE ER 20 MEQ TAB.ER PO STA (14:59)
[2023-12-15] MEDS: ACETAMINOPHEN IV (For NPO) 1,000 MG in EMPTY BAG 1 BAG IVPB PRN (15:00)
[2023-12-15] MEDS ORDERED: PIPERACILLIN-TAZOBACTAM 3.375 GM in SODIUM CHLORIDE 0.9% 100 ML IVPB SCH (16:00)
[2023-12-15] MEDS: POTASSIUM CHLORIDE ER 20 MEQ TAB.ER PO SCH (20:32)
[2023-12-15] MEDS: MONTELUKAST 10 MG TAB PO SCH (20:33)
[2023-12-15] MEDS: ALBUTEROL HFA INHALER INHALATION PRN (21:21)
[2023-12-15] MEDS: FLUTICASONE 110 MCG INHALER INHALATION SCH (21:21)
--- NOTE | 2023-12-15 21:46 | P.CONS ---
History of Present Illness - Reason for Consult Consult date: 12/15/23 Sepsis, cellulitis Requesting physician: Darius Brunson - Chief Complaint Nausea vomiting not feeling well x few days - History of Present Illness Patient is a 58-year-old female with a past medical history significant for hypertension reflux COPD and hypothyroidism presenting to the hospital for evaluation of not feeling well patient complaining of decreased appetite and has not been eating or drinking since that is 3 to 4 days before presentation to the hospital and was also complaining of rash to the right lower extremity patient denies any history of any trauma subsequent noticed having increasing swelling and redness of right lower extremity with some weeping edema patient complaining of pain to the right leg mostly dull aching moderate intense without any radiation on presentation to the hospital patient did have a low-grade fever of 100.1 F patient was tachycardic and hypotensive requiring pressors and admission to the ICU she was not hypoxic or need for supplemental oxygen patient did have white count of 10,000 with a left shift BUN and creatinine has been mildly elevated with low potassium of 3.2 urine has been mildly positive patient did have x-ray of the tibia and fibula soft tissue swelling throughout the right lower extremity no evidence for subcutaneous abscess or volume normality abdominal pelvis CT no acute abno rmality venous Doppler no DVT posterior medial knee complex fluid collection patient was started on vancomycin and Zosyn infectious disease was consulted for further management of antibiotic therapy Review of Systems Positive point and negatives has been mentioned in the HPI, complete review of systems was performed and all other systems are negative Past Medical History Past Medical History: COPD, GERD/Reflux, Hypertension, Thyroid Disorder History of Any Multi-Drug Resistant Organisms: None Reported Past Surgical History: Orthopedic Surgery, Uterine Ablation Additional Past Surgical History / Comment(s): Left sided thyroidectomy, rt knee surgery Past Anesthesia/Blood Transfusion Reactions: No Reported Reaction Past Psychological History: Anxiety, Depression Smoking Status: Current some day smoker Past Alcohol Use History: Occasional Additional Past Alcohol Use History / Comment(s): smoker off and on 10 years, currently smokes about 1/2ppd Past Drug Use History: None Reported - Past Family History Father Family Medical History: Cancer, Diabetes Mellitus Mother Family Medical History: Dementia Additional Family Medical History / Comment(s): One brother healthy 2 sisters healthy one daughter healthy one son healthy Medications and Allergies Home Medications Medication Instructions Recorded Confirmed Type Levothyroxine Sodium [Synthroid] 50 mcg PO DAILY 10/15/16 12/14/23 History Losartan [Cozaar] 50 mg PO DAILY 05/07/17 12/14/23 History Albuterol Inhaler [Ventolin Hfa 2 puff INHALATION RT-Q4H PRN #1 12/19/18 4 Rx Inhaler] inhaler Montelukast [Singulair] 10 mg PO HS #30 tab 12/19/18 12/14/23 Rx ALPRAZolam [Xanax] 2 mg PO BID PRN 12/14/23 12/14/23 History Alendronate Sodium 70 mg PO TU 12/14/23 12/14/23 History Beclomethasone Dipropionate [Qvar 2 puff INHALATION RT-BID 12/14/23 12/14/23 History 80mcg Redihaler] Allergies Allergy/AdvReac Type Severity Reaction Status Date / Time No Known Allergies Allergy Verified 12/14/23 17:25 Physical Exam Vitals: Vital Signs Temp Pulse Resp BP Pulse Ox 12/15/23 10:00 112 H 23 98/58 95 12/15/23 09:45 112 H 18 88/58 96 12/15/23 09:30 115 H 20 88/58 95 12/15/23 09:15 110 H 16 96/59 97 12/15/23 09:00 112 H 16 95/54 96 12/15/23 08:45 111 H 17 99/66 97 12/15/23 08:42 114 H 12/15/23 08:35 112 H 12/15/23 08:30 114 H 23 91/63 97 12/15/23 08:15 116 H 18 91/63 96 12/15/23 08:00 97.9 F 115 H 23 102/65 97 12/15/23 07:51 120 H 19 99/56 98 12/15/23 07:06 117 H 18 109/45 96 12/15/23 06:27 120 H 18 97/56 98 12/15/23 05:33 108 H 16 71/41 12/15/23 05:15 97.8 F 108 H 16 71/39 97 12/15/23 04:05 117 H 16 105/52 96 12/15/23 03:00 122 H 16 80/39 96 12/15/23 02:35 118 H 16 89/57 98 12/15/23 01:25 123 H 18 91/57 100 12/15/23 00:01 99.5 F 120 H 18 86/45 100 12/14/23 23:35 123 H 18 103/61 96 12/14/23 22:38 121 H 18 80/50 94 L 12/14/23 21:20 98.5 F 120 H 18 80/61 12/14/23 20:26 124 H 18 96/60 12/14/23 19:28 99.9 F H 128 H 16 103/60 94 L 12/14/23 19:02 89/59 12/14/23 18:54 99.6 F 128 H 20 97/61 96 12/14/23 17:43 100.1 F H 120 H 12/14/23 17:23 120 H 20 94/59 96 12/14/23 16:26 124 H 20 95/62 96 12/14/23 16:06 124 H 20 100/52 96 12/14/23 15:45 121 H 20 73/45 96 12/14/23 15:25 97.5 F L 119 H 20 63/39 99 Intake and Output 12/14/23 12/15/23 12/15/23 22:59 06:59 14:59 Intake Total 39.063 1466.114 Output Total 300 Balance 39.063 1166.114 Intake: IV 890 Magnesium Sulfate-D5w Pmx 100 1 gm In Dextrose/Water 1 100ml.bag @ 100 mls/hr IVPB Q1H [facility] Rx#: [id number] Piperacillin-Tazobactam 3 100 .375 gm In Sodium Chloride 0.9% 100 ml @ 25 mls/hr IVPB Q12HR [facility] Rx #:[id number] Potassium Chloride 10 meq 300 In Water For Injection 1 100ml.bag @ 100 mls/hr IVPB Q1HR [facility] Rx#: [id number] Sodium Chloride 0.9% 1, 390 000 ml @ 130 mls/hr IV . Q7H42M [facility] Rx#:[id number] Intake, IV Titration 39.063 76.114 Amount Norepinephrine 4 mg In 39.063 76.114 Sodium Chloride 0.9% 250 ml @ 0.03 MCG/KG/MIN 6. 481 mls/hr IV .Q24H [facility] Rx#:[id number] Oral 500 Output: Urine 300 Other: # Voids 1 Weight 56.699 kg 62.3 kg 62.3 kg GENERAL DESCRIPTION: Middle-aged female lying in bed, no distress. No tachypnea or accessory muscle of respiration use. HEENT: Shows Pallor , no scleral icterus. Oral mucous membrane is dry. No pharyngeal erythema or thrush NECK: Trachea central, no thyromegaly. LUNGS: Unlabored breathing. Clear to auscultation anteriorly. No wheeze or crackle. HEART: S1, S2, regular rate and rhythm. No loud murmur ABDOMEN: Soft, no tenderness , guarding or rigidity, no organomegaly EXTREMITIES: Right lower extremity did have swelling redness mostly on the dorsum aspect of the right foot with a dry scaly skin on the plantar aspect SKIN: No rash, no masses palpable. NEUROLOGICAL: The patient is awake, alert, oriented x3, mood and affect normal. Results CBC & Chem 7: 12/15/23 06:04 12/15/23 18:11 Labs: Abnormal Lab Results - Last 24 Hours (Table) 12/14/23 12/14/23 12/14/23 Range/Units 15:43 15:51 15:51 RBC (3.80-5.40) m/uL MCV (80.0-100.0) fL Plt Count (150-450) k/uL Neutrophils # (Manual) 9.20 H (1.3-7.7) k/uL Lymphocytes # (Manual) 0.20 L (1.0-4.8) k/uL Metamyelocytes # (Man) 0.40 H (0) k/uL PT (10.0-12.5) sec INR (<1.2) APTT (22.0-30.0) sec Sodium 131 L (137-145) mmol/L Potassium 2.6 L* (3.5-5.1) mmol/L Chloride 95 L (98-107) mmol/L Carbon Dioxide 19 L (22-30) mmol/L BUN 41 H (7-17) mg/dL Creatinine 2.07 H (0.52-1.04) mg/dL Glucose 120 H (74-99) mg/dL POC Glucose (mg/dL) 118 H (70-110) mg/dL Plasma Lactic Acid Sg (0.7-2.0) mmol/L Calcium 7.9 L (8.4-10.2) mg/dL Magnesium (1.6-2.3) mg/dL Total Bilirubin 4.6 H (0.2-1.3) mg/dL AST 91 H (14-36) U/L ALT 37 H (4-34) U/L Total Protein 6.1 L (6.3-8.2) g/dL Urine Appearance (Clear) Urine Protein (Negative) Urine Blood (Negative) Ur Leukocyte Esterase (Negative) Urine WBC (0-5) /hpf Urine WBC Clumps (None) /hpf Ur Squamous Epith Cells (0-4) /hpf Urine Bacteria (None) /hpf Hyaline Casts (0-2) /lpf Urine Mucus (None) /hpf 12/14/23 12/14/23 12/14/23 Range/Units 15:51 16:51 18:21 RBC (3.80-5.40) m/uL MCV (80.0-100.0) fL Plt Count (150-450) k/uL Neutrophils # (Manual) (1.3-7.7) k/uL Lymphocytes # (Manual) (1.0-4.8) k/uL Metamyelocytes # (Man) (0) k/uL PT 16.6 H (10.0-12.5) sec INR 1.6 H (<1.2) APTT 39.1 H (22.0-30.0) sec Sodium (137-145) mmol/L Potassium (3.5-5.1) mmol/L Chloride (98-107) mmol/L Carbon Dioxide (22-30) mmol/L BUN (7-17) mg/dL Creatinine (0.52-1.04) mg/dL Glucose (74-99) mg/dL POC Glucose (mg/dL) (70-110) mg/dL Plasma Lactic Acid Sg 4.9 H* 2.3 H* (0.7-2.0) mmol/L Calcium (8.4-10.2) mg/dL Magnesium (1.6-2.3) mg/dL Total Bilirubin (0.2-1.3) mg/dL AST (14-36) U/L ALT (4-34) U/L Total Protein (6.3-8.2) g/dL Urine Appearance (Clear) Urine Protein (Negative) Urine Blood (Negative) Ur Leukocyte Esterase (Negative) Urine WBC (0-5) /hpf Urine WBC Clumps (None) /hpf Ur Squamous Epith Cells (0-4) /hpf Urine Bacteria (None) /hpf Hyaline Casts (0-2) /lpf Urine Mucus (None) /hpf 12/14/23 12/15/23 12/15/23 Range/Units 19:51 03:11 03:11 RBC (3.80-5.40) m/uL MCV (80.0-100.0) fL Plt Count (150-450) k/uL Neutrophils # (Manual) (1.3-7.7) k/uL Lymphocytes # (Manual) (1.0-4.8) k/uL Metamyelocytes # (Man) (0) k/uL PT (10.0-12.5) sec INR (<1.2) APTT (22.0-30.0) sec Sodium (137-145) mmol/L Potassium 2.6 L* (3.5-5.1) mmol/L Chloride (98-107) mmol/L Carbon Dioxide (22-30) mmol/L BUN (7-17) mg/dL Creatinine (0.52-1.04) mg/dL Glucose (74-99) mg/dL POC Glucose (mg/dL) (70-110) mg/dL Plasma Lactic Acid Sg (0.7-2.0) mmol/L Calcium (8.4-10.2) mg/dL Magnesium 0.9 L* (1.6-2.3) mg/dL Total Bilirubin (0.2-1.3) mg/dL AST (14-36) U/L ALT (4-34) U/L Total Protein (6.3-8.2) g/dL Urine Appearance Cloudy H (Clear) Urine Protein 1+ H (Negative) Urine Blood Moderate H (Negative) Ur Leukocyte Esterase Moderate H (Negative) Urine WBC 41 H (0-5) /hpf Urine WBC Clumps Occasional H (None) /hpf Ur Squamous Epith Cells 11 H (0-4) /hpf Urine Bacteria Rare H (None) /hpf Hyaline Casts 31 H (0-2) /lpf Urine Mucus Rare H (None) /hpf 12/15/23 12/15/23 Range/Units 06:04 06:04 RBC 3.79 L (3.80-5.40) m/uL MCV 103.4 H (80.0-100.0) fL Plt Count 105 L (150-450) k/uL Neutrophils # (Manual) 10.00 H (1.3-7.7) k/uL Lymphocytes # (Manual) (1.0-4.8) k/uL Metamyelocytes # (Man) (0) k/uL PT (10.0-12.5) sec INR (<1.2) APTT (22.0-30.0) sec Sodium 134 L (137-145) mmol/L Potassium 2.9 L (3.5-5.1) mmol/L Chloride 111 H (98-107) mmol/L Carbon Dioxide 11 L (22-30) mmol/L BUN 38 H (7-17) mg/dL Creatinine 1.72 H (0.52-1.04) mg/dL Glucose 52 L (74-99) mg/dL POC Glucose (mg/dL) (70-110) mg/dL Plasma Lactic Acid Sg (0.7-2.0) mmol/L Calcium 6.1 L* (8.4-10.2) mg/dL Magnesium (1.6-2.3) mg/dL Total Bilirubin (0.2-1.3) mg/dL AST (14-36) U/L ALT (4-34) U/L Total Protein (6.3-8.2) g/dL Urine Appearance (Clear) Urine Protein (Negative) Urine Blood (Negative) Ur Leukocyte Esterase (Negative) Urine WBC (0-5) /hpf Urine WBC Clumps (None) /hpf Ur Squamous Epith Cells (0-4) /hpf Urine Bacteria (None) /hpf Hyaline Casts (0-2) /lpf Urine Mucus (None) /hpf Assessment and Plan (1) Cellulitis of right leg Current Visit: Yes Status: Acute Code(s): L03.115 - CELLULITIS OF RIGHT LOWER LIMB SNOMED Code(s): 98021961606444476 (2) Sepsis Current Visit: Yes Status: Acute Code(s): A41.9 - SEPSIS, UNSPECIFIED OR GANISM SNOMED Code(s): 94772197 Plan: 1patient presented to hospital with sepsis in this patient who did have fever tachycardia and hypotension meeting creatinine for SIRS source is right lower extremity cellulitis and more likely from gram-positive skin aileen less likely gram-negative infection 2patient with a mild renal insufficiency risk of nephrotoxicity from vancomycin and Zosyn combination 3we will discontinue Zosyn and start the patient on Unasyn while waiting for the culture to finalize at the bedside, question concern answered We will follow on clinical condition and cultures to further adjust medication if needed Thank you for this consultation we will follow the patient along with you Dictation was produced using [employer] dictation software. please excuse any grammatical, word or spelling errors. Time with Patient: Greater than 30
[2023-12-16 06:42] LABS: Basophils % (A) 0 %; Eosinophils % (A) 0 %; HGB 13.8 gm/dL (11.4-16.0); Lymphocytes # (A) 0.1 k/uL (1.0-4.8); Lymphocytes % (A) 1 %; MCH 33.6 pg (25.0-35.0); MCHC 33.6 g/dL (31.0-37.0); Mean Platelet Volume 9.1; Monocytes # (A) 0.1 k/uL (0-1.0); Monocytes % (A) 2 %; Neutrophils # (A) 7.4 k/uL (1.3-7.7); Neutrophils % (A) 95 %; RDW 13.9 % (11.5-15.5); WBC 7.7 k/uL (3.8-10.6)
[2023-12-16] MEDS: LEVOTHYROXINE 50 MCG TAB PO SCH (07:00)
[2023-12-16 07:01] LABS: African American GFR (CKD) 53 (>60 ml/min/1.73 sqM); Anion Gap 9 mmol/L; Blood Urea Nitrogen 30 mg/dL (7-17); Carbon Dioxide 17 mmol/L (22-30); Chloride 108 mmol/L (98-107); Glucose 107 mg/dL (74-99); Magnesium 2.3 mg/dL (1.6-2.3); Non-African American GFR(CKD) 46 (>60 ml/min/1.73 sqM); Sodium 134 mmol/L (137-145)
[2023-12-16 07:26] LABS: Calcium 6.2 mg/dL (8.4-10.2)
[2023-12-16] MEDS: POTASSIUM CHLORIDE ER 20 MEQ TAB.ER PO SCH ×2 (08:23→17:29)
[2023-12-16] MEDS: ACETAMINOPHEN TAB 500 MG TAB PO PRN (09:04)
[2023-12-16 09:17] LABS: Ionized Calcium 3.8 mg/dL (4.5-5.3)
[2023-12-16 09:20] LABS: Mean Platelet Volume 9.3
[2023-12-16 09:31] LABS: Platelet Count 80 k/uL (150-450)
--- NOTE | 2023-12-16 10:29 | P.PN ---
Subjective Progress Note Date: 12/16/23 Patient is a 58-year-old female with past medical history significant for partial thyroidectomy, hypothyroidism, hypertension, anxiety, and eosinophilic asthma. Primary care provider is Dr. Lua. She follows with Dr. Rodriguez for management of her asthma. She is currently receiving Fasenra injections. Also, uses Qvar inhaler and as needed albuterol inhaler. Starting Friday, the patient noticed right lower extremity redness and warmth and pain. Developed worsening generalized weakness and fever. She has had associated nausea, vomiting, and diarrhea. Reduced oral intake. Admits to being dizzy on standing. She is currently being evaluated in the ED, trauma bay 1. She was hypotensive on arrival. I am told she has received a total of 3 L of normal saline bolus. She is alert and oriented. Remains hypotensive, blood pressure currently 86/45 mmHg. Heart rate is tachycardic around 120 bpm. She will likely require a norepinephrine infusion. Her right lower extremity is outlined. He is edematous and erythemic and blotchy. Extremity is hot to palpation. On the posterior aspect of the calf there is a centimeter shallow ulceration without significant drainage. She does not recall any injuries to this extremity. Denies history of skin or MRSA infections. There is good dist al circulation. CBC: WBC count 10, hemoglobin 15.2, hematocrit 44.3, platelets 179. Abnormal coagulation profile: PT 16.6, INR 1.6, APTT 39.1. CMP: Sodium 131, potassium 2.6, chloride 95, serum bicarb 19, BUN 41, creatinine 2.07, glucose 120. Lactic was 4.9 and is down to 1.5. LFTs mildly elevated. Urinalysis was a contaminated sample. Patient denies any urinary complaints. Chest x-ray does not show any acute cardiopulmonary process. A CT of the abdomen and pelvis demonstrating a relatively unremarkable appearance of the liver. No evidence of ductal dilation. High density in the gallbladder lumen. 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 Colonic diverticulosis without diverticulitis. Right tibia/fibula x-ray did not show any evidence of acute fracture. Soft tissue swelling throughout the right lower extremity. Without subcutaneous lucency or osseous erosion. I suspect cellulitis/sepsis. She was febrile on arrival to the ED with a Tmax of 100.1 F. Empirically covered on vancomycin and Zosyn. The patient is seen today December 15 intensive care unit. She is currently sitting up in a chair at the bedside. Awake and alert in no acute distress. She is maintaining good O2 saturations in the 90s on room air. She has D5W with 3 A of bicarb at 100 mL/h. She is on norepinephrine at 3 mcg/min. She remains on antibiotics in the form of Unasyn. Right foot wound cultures positive for strep A. White count 7.7. Hemoglobin 13.8. Platelets 80,000. Sodium 134. Potassium 3.0. Bicarb is 17. BUN 30. Creatinine 1.28. Ionized calcium 3.8. Albumin 2.0. TSH 1.00. Objective - Vital Signs Vital signs: Vital Signs Temp 97.6 F 12/16/23 08:00 Pulse 98 12/16/23 10:00 Resp 14 12/16/23 10:00 BP 75/50 12/16/23 10:00 Pulse Ox 97 12/16/23 10:00 FiO2 Intake & Output 12/15/23 12/16/23 12/16/23 18:59 06:59 18:59 Intake Total 2503.927 1970.643 627.388 Output Total 700 1000 0 Balance 1803.927 970.643 627.388 Weight 62.3 kg 65.4 kg Intake: IV 1880 1400 400 Ampicillin-Sulbactam 3 gm 100 200 In Sodium Chloride 0.9% 100 ml @ 200 mls/hr IVPB Q6HR [facility] Rx#:[id number] Dextrose 5% in Water 1, 500 1200 400 000 ml @ 100 mls/hr IV . [id number] [facility] with Sodium Bicarb (1 Meq/ml) 150 ml Rx#:[id number] Magnesium Sulfate-D5w Pmx 100 1 gm In Dextrose/Water 1 100ml.bag @ 100 mls/hr IVPB Q1H [facility] Rx#: [id number] Piperacillin-Tazobactam 3 100 .375 gm In Sodium Chloride 0.9% 100 ml @ 25 mls/hr IVPB Q12HR [facility] Rx #:[id number] Potassium Chloride 10 meq 300 In Water For Injection 1 100ml.bag @ 100 mls/hr IVPB Q1HR [facility] Rx#: [id number] Sodium Chloride 0.9% 1, 780 000 ml @ 130 mls/hr IV . Q7H42M [facility] Rx#:[id number] Intake, IV Titration 123.927 70.643 27.388 Amount Norepinephrine 4 mg In 123.927 70.643 27.388 Sodium Chloride 0.9% 250 ml @ 0.03 MCG/KG/MIN 6. 481 mls/hr IV .Q24H [facility] Rx#:[id number] Oral 500 500 200 Output: Urine 700 1000 0 Other: # Voids 1 1 1 # Bowel Movements 1 1 1 - Exam GENERAL EXAM: Alert, 58-year-old female, up in a chair, on room air, comfortable in no apparent distress. HEAD: Normocephalic and atraumatic EYES: Normal reaction of pupils, equal size. NOSE: Clear with pink turbinates. THROAT: No erythema or exudates. NECK: No masses, no JVD. CHEST: No chest wall deformity. LUNGS: Equal air entry with no crackles, wheeze, rhonchi or dullness. No conversational dyspnea or accessory muscle use.. CVS: S1 and S2 normal with no audible murmur, regular rhythm. No extra heart sounds ABDOMEN: No hepatosplenomegaly, active bowel sounds, no guarding or rigidity. SPINE: No scoliosis or deformity SKIN: Right lower extremity is edematous, erythemic, and warm. There is a shallow centimeter ulceration on the posterior aspect of the calf. No significant drainage. This extremity is outlined CENTRAL NERVOUS SYSTEM: No focal deficits, tone is normal in all 4 extremities. EXTREMITIES: Left lower extremity is without peripheral edema, clubbing, or cyanosis. Peripheral dorsalis pedal/posterior tibial pulses 2+ - Labs CBC & Chem 7: 12/16/23 08:45 12/16/23 06:09 Labs: Abnormal Lab Results - Last 24 Hours (Table) 12/15/23 12/15/23 12/16/23 Range/Units 13:06 18:11 06:09 Plt Count (150-450) k/uL Lymphocytes # 0.1 L (1.0-4.8) k/uL Sodium (137-145) mmol/L Potassium 3.2 L 3.2 L (3.5-5.1) mmol/L Chloride (98-107) mmol/L Carbon Dioxide (22-30) mmol/L BUN (7-17) mg/dL Creatinine (0.52-1.04) mg/dL Glucose (74-99) mg/dL Calcium (8.4-10.2) mg/dL Ionized Calcium Lazaro (4.5-5.3) mg/dL Magnesium 2.4 H (1.6-2.3) mg/dL Albumin (3.5-5.0) g/dL 12/16/23 12/16/23 12/16/23 Range/Units 06:09 08:45 08:45 Plt Count 80 L (150-450) k/uL Lymphocytes # (1.0-4.8) k/uL Sodium 134 L (137-145) mmol/L Potassium 3.0 L (3.5-5.1) mmol/L Chloride 108 H (98-107) mmol/L Carbon Dioxide 17 L (22-30) mmol/L BUN 30 H (7-17) mg/dL Creatinine 1.28 H (0.52-1.04) mg/dL Glucose 107 H (74-99) mg/dL Calcium 6.2 L* (8.4-10.2) mg/dL Ionized Calcium Lazaro 3.8 L (4.5-5.3) mg/dL Magnesium (1.6-2.3) mg/dL Albumin 2.0 L (3.5-5.0) g/dL Microbiology - Last 24 Hours (Table) 12/15/23 08:15 Gram Stain - Preliminary Foot - Right Wound Culture - Preliminary Strep A 12/14/23 19:51 Urine Culture - Final Urine,Voided 12/14/23 16:15 Blood Culture - Preliminary Blood Assessment and Plan Assessment: Suspect cellulitis of the right lower extremity. Doppler negative for DVT. Culture showing strep A. Currently on Unasyn Sepsis/hypotension/septic shock, secondary to above Anion gap metabolic acidosis and lactic acidosis, improving Acute febrile illness Nausea, vomiting, diarrhea; no acute abdominal process noted on abdominal/pelvis CT Acute kidney injury, secondary to combination of severe dehydration and hypotension with ATN Severe hypokalemia, being replaced per protocol Mild transaminitis, secondary to hypotension and shock History of partial thyroidectomy and secondary hypothyroidism History of hypertension Eosinophilic asthma, currently receives Fasenra injections outpatient, appears stable History of anxiety Plan: The patient was seen and evaluated Labs and medications reviewed Currently stable and on room air Titrate down the norepinephrine as tolerated Continued on Unasyn Add calcium gluconate x 1 Continue fluid resuscitation Replace electrolytes Heparin for DVT prophylaxis We will continue to follow I have personally seen and examined the patient, performed the documentation and the assessment and plan as written. Number of minutes spent on the visit: 10 Dictation was produced using [employer] dictation software. Please excuse any grammatical, word or spelling errors.
[2023-12-16] MEDS: CALCIUM GLUCONATE IN NACL 1 GM in SALINE 1 100ML.BAG IVPB ONE (11:38)
--- NOTE | 2023-12-16 14:50 | P.PN ---
Subjective Progress Note Date: 12/16/23 Principal diagnosis: Reason for follow-up is right lower extremity cellulitis Patient is a 58-year-old female with a past medical history significant for hypertension reflux COPD and hypothyroidism presenting to the hospital for evaluation of not feeling well patient has been diagnosed with sepsis in the right lower extremity cellulitis with local culture positive for group A strep blood culture has been negative so far. On today's evaluation that is 12/16/2023, Patient is afebrile this morning patient denies having any chest pain did have some shortness of breath but no significant cough, the patient is currently on room air, patient denies any abdominal pain no diarrhea no nausea no vomiting has been complaining of mostly swelling to the lower extremity and some weeping edema but no worsening pain. Patient white count is 7.7 creatinine is 1.28 blood cultures so far pending Objective - Vital Signs Vital signs: Vital Signs Temp 97.6 F 12/16/23 08:00 Pulse 98 12/16/23 10:00 Resp 14 12/16/23 10:00 BP 75/50 12/16/23 10:00 Pulse Ox 97 12/16/23 10:00 FiO2 Intake & Output 12/15/23 12/16/23 12/16/23 18:59 06:59 18:59 Intake Total 2503.927 1970.643 638.045 Output Total 700 1000 0 Balance 1803.927 970.643 638.045 Weight 62.3 kg 65.4 kg Intake: IV 1880 1400 400 Ampicillin-Sulbactam 3 gm 100 200 In Sodium Chloride 0.9% 100 ml @ 200 mls/hr IVPB Q6HR JAZ[facility] Rx#:[id number] Dextrose 5% in Water 1, 500 1200 400 000 ml @ 100 mls/hr IV . [id number] JAZMIN with Sodium Bicarb (1 Meq/ml) 150 ml Rx#:[id number] Magnesium Sulfate-D5w Pmx 100 1 gm In Dextrose/Water 1 100ml.bag @ 100 mls/hr IVPB Q1H [facility] Rx#: [id number] Piperacillin-Tazobactam 3 100 .375 gm In Sodium Chloride 0.9% 100 ml @ 25 mls/hr IVPB Q12HR [facility] Rx #:[id number] Potassium Chloride 10 meq 300 In Water For Injection 1 100ml.bag @ 100 mls/hr IVPB Q1HR [facility] Rx#: [id number] Sodium Chloride 0.9% 1, 780 000 ml @ 130 mls/hr IV . Q7H42M [facility] Rx#:[id number] Intake, IV Titration 123.927 70.643 38.045 Amount Norepinephrine 4 mg In 123.927 70.643 38.045 Sodium Chloride 0.9% 250 ml @ 0.03 MCG/KG/MIN 6. 481 mls/hr IV .Q24H JAZMIN Rx#:[id number] Oral 500 500 200 Output: Urine 700 1000 0 Other: # Voids 1 1 1 # Bowel Movements 1 1 1 - Exam GENERAL DESCRIPTION: Middle-age female up in the chair in no distress RESPIRATORY SYSTEM: Unlabored breathing , decreased breath sounds at bases HEART: S1 S2 regular rate and rhythm , ABDOMEN: Soft , no tenderness EXTREMITIES: Right lower extremity did have swelling some weeping edema blister redness to the right foot has decreased - Labs CBC & Chem 7: 12/16/23 08:45 12/16/23 06:09 Labs: Abnormal Lab Results - Last 24 Hours (Table) 12/15/23 12/15/23 12/16/23 Range/Units 13:06 18:11 06:09 Plt Count (150-450) k/uL Lymphocytes # 0.1 L (1.0-4.8) k/uL Sodium (137-145) mmol/L Potassium 3.2 L 3.2 L (3.5-5.1) mmol/L Chloride (98-107) mmol/L Carbon Dioxide (22-30) mmol/L BUN (7-17) mg/dL Creatinine (0.52-1.04) mg/dL Glucose (74-99) mg/dL Calcium (8.4-10.2) mg/dL Ionized Calcium Lazaro (4.5-5.3) mg/dL Magnesium 2.4 H (1.6-2.3) mg/dL Albumin (3.5-5.0) g/dL 12/16/23 12/16/23 12/16/23 Range/Units 06:09 08:45 08:45 Plt Count 80 L (150-450) k/uL Lymphocytes # (1.0-4.8) k/uL Sodium 134 L (137-145) mmol/L Potassium 3.0 L (3.5-5.1) mmol/L Chloride 108 H (98-107) mmol/L Carbon Dioxide 17 L (22-30) mmol/L BUN 30 H (7-17) mg/dL Creatinine 1.28 H (0.52-1.04) mg/dL Glucose 107 H (74-99) mg/dL Calcium 6.2 L* (8.4-10.2) mg/dL Ionized Calcium Lazaro 3.8 L (4.5-5.3) mg/dL Magnesium (1.6-2.3) mg/dL Albumin 2.0 L (3.5-5.0) g/dL Microbiology - Last 24 Hours (Table) 12/15/23 08:15 Gram Stain - Preliminary Foot - Right Wound Culture - Preliminary Strep A 12/14/23 19:51 Urine Culture - Final Urine,Voided 12/14/23 16:15 Blood Culture - Preliminary Blood Assessment and Plan (1) Cellulitis of right leg Current Visit: Yes Status: Acute Code(s): L03.115 - CELLULITIS OF RIGHT LOWER LIMB SNOMED Code(s): 96035435863632262 (2) Sepsis Current Visit: Yes Status: Acute Code(s): A41.9 - SEPSIS, UNSPECIFIED ORGANISM SNOMED Code(s): 18509337 Plan: 1patient presented to hospital with sepsis in this patient who did have fever tachycardia and hypotension meeting creatinine for SIRS source is right lower extremity cellulitis and more likely from gram-positive skin aileen less likely gram-negative infection 2patient with a mild renal insufficiency risk of nephrotoxicity from vancomycin and Zosyn combination which has been discontinued 3local culture has been positive for group A strep antibiotic has been adjusted to cefazolin 2 g every 8 hours, we will advise local wound care with a dry Aquacel silver dressing to the blister/open area followed by Da wrap from just above the toe to below the knee change daily, care has been discussed in detail with the sister on the phone as per request of the patient and multiple question concern answered Dictation was produced using [employer] dictation software. please excuse any grammatical, word or spelling errors. Time with Patient: Less than 30
--- NOTE | 2023-12-16 19:38 | P.PN ---
Subjective Progress Note Date: 12/16/23 58-year-old female came to hospital with complaints of right lower extremity redness warmth and pain which apparently improved significantly today. Patient has a wound on the posterior aspect of the mid calf area. Patient was later found to be septic hypotensive admitted to ICU with broad-spectrum antibiotics vancomycin and Zosyn. Chest x-ray did not show any significant abnormality, urine analysis is abnormal with bacteria and squamous epithelial cells appear to be a contaminated urine sample. Patient had fever and mild leukocytosis venous Doppler showed fluid collection in the knee area and CT of the abdomen pelvis showed biliary sludge and patient is tachycardic patient is presently on pressor support. Patient is also having diarrhea before she came in which improved but still having diarrhea., Hyponatremic on admission presently hyponatremic and hyperchloremic elevated serum creatinine of 2.7 improving presently 1.7 to the baseline creatinine around 0.7. 12/16/2023 Patient is seen in follow-up continues in the ICU on pressor support with a blood pressure of 80 systolic reports to feeling extremely weak and symptomatic with dizziness and attempting to wean at this time. Patient also maintained on IV antibiotics with infectious disease following closely and awaiting finalized cultures to determine discharge antibiotics. Patient continues with right lower extremity pain and difficulty with ambulation. Recommend PT/OT therapy for evaluation. Preliminary culture showing strep a and also awaiting blood cultures. Review of systems: Constitutional: No reports of fatigue, fever, or chills Cardiovascular: No reports of chest pain or palpitations Respiratory: No reports of shortness of breath or cough GI: reports of occasional nausea, no vomiting, or diarrhea : No reports of dysuria or retention Neurovascular: reports of generalized weakness and continued severe right lower extremity pain All medications have been reviewed PHYSICAL EXAMINATION: GENERAL: The patient is alert and oriented x3, not in any acute distress. Well developed, well nourished. HEENT: Pupils are round and equally reacting to light. EOMI. No scleral icterus. No conjunctival pallor. Normocephalic, atraumatic. No pharyngeal erythema. No thyromegaly. CARDIOVASCULAR: S1 and S2 present. No murmurs, rubs, or gallops. PULMONARY: Diminished breath sounds bilaterally otherwise chest is clear to auscultation, no wheezing or crackles. ABDOMEN: Soft, nontender, nondistended, normoactive bowel sounds. No palpable organomegaly. MUSCULOSKELETAL: No joint swelling or deformity. EXTREMITIES: No cyanosis, clubbing, or pedal edema. Right lower extremity swelling noted worse than left and also wounds that are currently dressed with Optifoam dressing that is dry and intact NEUROLOGICAL: Gross neurological examination did not reveal any focal deficits. Diffusely weak SKIN: Cellulitis of the right lower extremity with wound in the posterior aspect of the mid calf area Assessment and plan -Septic shock etiology of septic shock is not clear although felt to be right lower extremity cellulitis -Diarrhea but abdominal CT showed biliary sludge source is not clear -Cellulitis of the right lower extremity with a wound: As mentioned above patient is on broad-spectrum antibiotics -Acute renal failure: Possibly acute tubular necrosis, continue IV fluids as well as sodium bicarbonate -Anion gap metabolic acidosis secondary lactic acidosis, improving -Non-anion gap develop acidosis secondary to hyperchloremia change IV fluids as mentioned above -Diarrhea: May need to obtain C. difficile if she continues to have diarrhea -Hypokalemia: secondary to nausea vomiting diarrhea, potassium replaced per protocol -Transaminitis secondary to sepsis -Hypothyroidism -Hypertension patient is presently hypotensive -Asthma without any acute exacerbation DVT prophylaxis: Subcutaneous heparin GI prophylaxis Full code The impression and plan of care has been dictated by Mamta Hood, Nurse Practitioner as directed. Dr. Nannette MD I have performed a history and examination and MDM of this patient, discussed the same with the dictator, and agree with the dictator's assessment and plan as written ,documented as a scribe. Based on total visit time, I have performed more than 50% of the visit. Objective - Vital Signs Vital signs: Vital Signs Temp 97.6 F 12/16/23 08:00 Pulse 102 H 12/16/23 09:00 Resp 11 L 12/16/23 09:00 BP 81/56 12/16/23 09:00 Pulse Ox 95 12/16/23 09:00 FiO2 Intake & Output 12/15/23 12/16/23 12/16/23 18:59 06:59 18:59 Intake Total 2503.927 1970.643 527.388 Output Total 700 1000 0 Balance 1803.927 970.643 527.388 Weight 62.3 kg 65.4 kg Intake: IV 1880 1400 300 Ampicillin-Sulbactam 3 gm 100 200 In Sodium Chloride 0.9% 100 ml @ 200 mls/hr IVPB Q6HR [facility] Rx#:[id number] Dextrose 5% in Water 1, 500 1200 300 000 ml @ 100 mls/hr IV . [id number] JAZMIN with Sodium Bicarb (1 Meq/ml) 150 ml Rx#:[id number] Magnesium Sulfate-D5w Pmx 100 1 gm In Dextrose/Water 1 100ml.bag @ 100 mls/hr IVPB Q1H [facility] Rx#: [id number] Piperacillin-Tazobactam 3 100 .375 gm In Sodium Chloride 0.9% 100 ml @ 25 mls/hr IVPB Q12HR [facility] Rx #:[id number] Potassium Chloride 10 meq 300 In Water For Injection 1 100ml.bag @ 100 mls/hr IVPB Q1HR [facility] Rx#: [id number] Sodium Chloride 0.9% 1, 780 000 ml @ 130 mls/hr IV . Q7H42M [facility] Rx#:[id number] Intake, IV Titration 123.927 70.643 27.388 Amount Norepinephrine 4 mg In 123.927 70.643 27.388 Sodium Chloride 0.9% 250 ml @ 0.03 MCG/KG/MIN 6. 481 mls/hr IV .Q24H [facility] Rx#:[id number] Oral 500 500 200 Output: Urine 700 1000 0 Other: # Voids 1 1 # Bowel Movements 1 1 - Labs CBC & Chem 7: 12/16/23 08:45 12/16/23 15:54 Labs: Abnormal Lab Results - Last 24 Hours (Table) 12/15/23 12/15/23 12/15/23 Range/Units 06:04 13:06 18:11 Neutrophils # (Manual) 10.00 H (1.3-7.7) k/uL Lymphocytes # (1.0-4.8) k/uL Sodium (137-145) mmol/L Potassium 3.2 L 3.2 L (3.5-5.1) mmol/L Chloride (98-107) mmol/L Carbon Dioxide (22-30) mmol/L BUN (7-17) mg/dL Creatinine (0.52-1.04) mg/dL Glucose (74-99) mg/dL Calcium (8.4-10.2) mg/dL Ionized Calcium Lazaro (4.5-5.3) mg/dL Magnesium 2.4 H (1.6-2.3) mg/dL Albumin (3.5-5.0) g/dL 12/16/23 12/16/23 12/16/23 Range/Units 06:09 06:09 08:45 Neutrophils # (Manual) (1.3-7.7) k/uL Lymphocytes # 0.1 L (1.0-4.8) k/uL Sodium 134 L (137-145) mmol/L Potassium 3.0 L (3.5-5.1) mmol/L Chloride 108 H (98-107) mmol/L Carbon Dioxide 17 L (22-30) mmol/L BUN 30 H (7-17) mg/dL Creatinine 1.28 H (0.52-1.04) mg/dL Glucose 107 H (74-99) mg/dL Calcium 6.2 L* (8.4-10.2) mg/dL Ionized Calcium Lazaro 3.8 L (4.5-5.3) mg/dL Magnesium (1.6-2.3) mg/dL Albumin 2.0 L (3.5-5.0) g/dL Microbiology - Last 24 Hours (Table) 12/14/23 16:15 Blood Culture - Preliminary Blood 12/15/23 08:15 Gram Stain - Preliminary Foot - Right
[2023-12-17 07:00] LABS: ALT 30 U/L (4-34); AST 32 U/L (14-36); African American GFR (CKD) 67 (>60 ml/min/1.73 sqM); Albumin 1.8 g/dL (3.5-5.0); Alkaline Phosphatase 139 U/L (38-126); Anion Gap 6 mmol/L; Blood Urea Nitrogen 25 mg/dL (7-17); Carbon Dioxide 24 mmol/L (22-30); Chloride 102 mmol/L (98-107); Glucose 89 mg/dL (74-99); Magnesium 1.9 mg/dL (1.6-2.3); Non-African American GFR(CKD) 58 (>60 ml/min/1.73 sqM); Potassium 3.5 mmol/L (3.5-5.1); Sodium 132 mmol/L (137-145); Total Bilirubin 6.3 mg/dL (0.2-1.3); Total Protein 3.6 g/dL (6.3-8.2)
[2023-12-17 07:21] LABS: Calcium 6.4 mg/dL (8.4-10.2)
[2023-12-17 07:46] LABS: HCT 38.1 % (34.0-46.0); HGB 13.2 gm/dL (11.4-16.0); MCH 34.3 pg (25.0-35.0); MCHC 34.7 g/dL (31.0-37.0); MCV 98.9 fL (80.0-100.0); Mean Platelet Volume 11.3; RBC 3.85 m/uL (3.80-5.40); WBC 16.2 k/uL (3.8-10.6)
[2023-12-17] MEDS: POTASSIUM CHLORIDE ER 20 MEQ TAB.ER PO SCH (08:56)
[2023-12-17] MEDS: HYDROCORTISONE SUCCINATE 100 MG/2 ML VIAL IV ONE (10:35)
[2023-12-17 10:36] LABS: Band Neutrophils % 2 %; Lymphocytes # (M) 0.65 k/uL (1.0-4.8); Monocytes # (M) 0.32 k/uL (0-1.0); Myelocytes # (M) 0.32 k/uL (0); Myelocytes % 2 %; Neutrophils % (M) 91 %; Nucleated Red Blood Cells 0 /100 WBC (0-0); Total Cells Counted 200
--- NOTE | 2023-12-17 10:36 | P.PN ---
Subjective Progress Note Date: 12/17/23 Patient is a 58-year-old female with past medical history significant for partial thyroidectomy, hypothyroidism, hypertension, anxiety, and eosinophilic asthma. Primary care provider is Dr. Lua. She follows with Dr. Rodriguez for management of her asthma. She is currently receiving Fasenra injections. Also, uses Qvar inhaler and as needed albuterol inhaler. Starting Friday, the patient noticed right lower extremity redness and warmth and pain. Developed worsening generalized weakness and fever. She has had associated nausea, vomiting, and diarrhea. Reduced oral intake. Admits to being dizzy on standing. She is currently being evaluated in the ED, trauma bay 1. She was hypotensive on arrival. I am told she has received a total of 3 L of normal saline bolus. She is alert and oriented. Remains hypotensive, blood pressure currently 86/45 mmHg. Heart rate is tachycardic around 120 bpm. She will likely require a norepinephrine infusion. Her right lower extremity is outlined. He is edematous and erythemic and blotchy. Extremity is hot to palpation. On the posterior aspect of the calf there is a centimeter shallow ulceration without significant drainage. She does not recall any injuries to this extremity. Denies history of skin or MRSA infections. There is good dist al circulation. CBC: WBC count 10, hemoglobin 15.2, hematocrit 44.3, platelets 179. Abnormal coagulation profile: PT 16.6, INR 1.6, APTT 39.1. CMP: Sodium 131, potassium 2.6, chloride 95, serum bicarb 19, BUN 41, creatinine 2.07, glucose 120. Lactic was 4.9 and is down to 1.5. LFTs mildly elevated. Urinalysis was a contaminated sample. Patient denies any urinary complaints. Chest x-ray does not show any acute cardiopulmonary process. A CT of the abdomen and pelvis demonstrating a relatively unremarkable appearance of the liver. No evidence of ductal dilation. High density in the gallbladder lumen. 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 Colonic diverticulosis without diverticulitis. Right tibia/fibula x-ray did not show any evidence of acute fracture. Soft tissue swelling throughout the right lower extremity. Without subcutaneous lucency or osseous erosion. I suspect cellulitis/sepsis. She was febrile on arrival to the ED with a Tmax of 100.1 F. Empirically covered on vancomycin and Zosyn. The patient is seen today December 15 intensive care unit. She is currently sitting up in a chair at the bedside. Awake and alert in no acute distress. She is maintaining good O2 saturations in the 90s on room air. She has D5W with 3 A of bicarb at 100 mL/h. She is on norepinephrine at 3 mcg/min. She remains on antibiotics in the form of Unasyn. Right foot wound cultures positive for strep A. White count 7.7. Hemoglobin 13.8. Platelets 80,000. Sodium 134. Potassium 3.0. Bicarb is 17. BUN 30. Creatinine 1.28. Ionized calcium 3.8. Albumin 2.0. TSH 1.00. The patient is seen today December 17 2023 in follow-up in the intensive care unit. She is awake and alert in no acute distress. Sitting up in a chair at the bedside. Maintaining O2 saturations in the 90s on room air. She is still requiring norepinephrine at 0.06 mcg/kg/min. D5W with 3 A of bicarb at 100 mL/h. She is continued on albuterol, Flovent, Singulair. White count 16.2. Hemoglobin 13.2. Sodium 132. Potassium 3.5. Bicarb 24. BUN 25. Creatinine 1.05. Calcium 6.4. TSH 1.00. Cortisol level 22.9. Right foot wound infection is positive for strep A. She is currently on cefazolin. Objective - Vital Signs Vital signs: Vital Signs Temp 97.8 F 12/17/23 08:00 Pulse 106 H 12/17/23 08:15 Resp 21 12/17/23 08:00 BP 87/57 12/17/23 08:15 Pulse Ox 92 L 12/17/23 08:13 FiO2 Intake & Output 12/16/23 12/17/23 12/17/23 18:59 06:59 18:59 Intake Total 1732.421 9840.442 141.584 Output Total 0 Balance 3246.850 6824.442 141.584 Weight 66.4 kg Intake: IV 1200 1200 100 Dextrose 5% in Water 1, 1200 1200 100 000 ml @ 100 mls/hr IV . [id number] [facility]MIN with Sodium Bicarb (1 Meq/ml) 150 ml Rx#:[id number] Intake, IV Titration 67.819 109.442 41.584 Amount Norepinephrine 4 mg In 67.819 59.442 41.584 Sodium Chloride 0.9% 250 ml @ 0.03 MCG/KG/MIN 6. 481 mls/hr IV .Q24H [facility] Rx#:[id number] ceFAZolin 2 gm In Sodium 50 Chloride 0.9% 50 ml @ 100 mls/hr IVPB Q8HR [facility] Rx# :[id number] Oral 450 300 Output: Urine 0 Other: # Voids 1 1 # Bowel Movements 1 1 - Exam GENERAL EXAM: Alert, pleasant 58-year-old female, up in a chair, on room air, in no apparent distress. HEAD: Normocephalic and atraumatic EYES: Normal reaction of pupils, equal size. NOSE: Clear with pink turbinates. THROAT: No erythema or exudates. NECK: No masses, no JVD. CHEST: No chest wall deformity. LUNGS: Equal air entry with no crackles, wheeze, rhonchi or dullness. No conversational dyspnea or accessory muscle use.. CVS: S1 and S2 normal with no audible murmur, regular rhythm. No extra heart sounds ABDOMEN: No hepatosplenomegaly, active bowel sounds, no guarding or rigidity. SPINE: No scoliosis or deformity SKIN: Right lower extremity is edematous, erythemic, and warm. There is a shallow centimeter ulceration on the posterior aspect of the calf. No significant drainage. This extremity is outlined CENTRAL NERVOUS SYSTEM: No focal deficits, tone is normal in all 4 extremities. EXTREMITIES: Left lower extremity is without peripheral edema, clubbing, or cyanosis. Peripheral dorsalis pedal/posterior tibial pulses 2+ - Labs CBC & Chem 7: 12/17/23 07:33 12/17/23 05:27 Labs: Abnormal Lab Results - Last 24 Hours (Table) 12/16/23 12/16/23 12/17/23 Range/Units 08:45 15:54 05:27 WBC (3.8-10.6) k/uL Sodium 132 L (137-145) mmol/L Potassium 3.4 L (3.5-5.1) mmol/L BUN 25 H (7-17) mg/dL Creatinine 1.05 H (0.52-1.04) mg/dL Calcium 6.4 L* (8.4-10.2) mg/dL Total Bilirubin 6.3 H (0.2-1.3) mg/dL Alkaline Phosphatase 139 H (38-126) U/L Total Protein 3.6 L (6.3-8.2) g/dL Albumin 1.8 L (3.5-5.0) g/dL Cortisol 22.9 H (3.1-22.4) UG/DL 12/17/23 Range/Units 07:33 WBC 16.2 H (3.8-10.6) k/uL Sodium (137-145) mmol/L Potassium (3.5-5.1) mmol/L BUN (7-17) mg/dL Creatinine (0.52-1.04) mg/dL Calcium (8.4-10.2) mg/dL Total Bilirubin (0.2-1.3) mg/dL Alkaline Phosphatase (38-126) U/L Total Protein (6.3-8.2) g/dL Albumin (3.5-5.0) g/dL Cortisol (3.1-22.4) UG/DL Microbiology - Last 24 Hours (Table) 12/14/23 16:15 Blood Culture - Preliminary Blood 12/15/23 08:15 Gram Stain - Preliminary Foot - Right Wound Culture - Preliminary Strep A 12/14/23 19:51 Urine Culture - Final Urine,Voided Assessment and Plan Assessment: Suspect cellulitis of the right lower extremity. Doppler negative for DVT. Culture showing strep A. Currently on cefazolin Sepsis/hypotension/septic shock, secondary to above Anion gap metabolic acidosis and lactic acidosis, improving Acute febrile illness Nausea, vomiting, diarrhea; no acute abdominal process noted on abdominal/pelvis CT Acute kidney injury, secondary to combination of severe dehydration and hypotension with ATN Severe hypokalemia, being replaced per protocol Mild transaminitis, secondary to hypotension and shock History of partial thyroidectomy and secondary hypothyroidism History of hypertension Eosinophilic asthma, currently receives Fasenra injections outpatient, appears stable History of anxiety Plan: The patient was seen and evaluated Labs and medications reviewed Currently stable and on room air Solu-Cortef 100 mg IVP x 1 Titrate down the norepinephrine as tolerated Continued on cefazolin Heparin for DVT prophylaxis We will continue to follow I have personally seen and examined the patient, performed the documentation and the assessment and plan as written. Number of minutes spent on the visit: 10 Dictation was produced using [employer] dictation software. Please excuse any grammatical, word or spelling errors.
[2023-12-17 10:38] LABS: Platelet Count 33 k/uL (150-450); Toxic Vacuolation Present
[2023-12-17 10:39] LABS: Toxic Granulation Present
[2023-12-17 11:02] VITALS: BMI 23.6
[2023-12-17] MEDS: KETOROLAC 15 MG/ML 1 ML VIAL IVP PRN (13:59)
[2023-12-17] MEDS: POTASSIUM BICARBONATE/CIT AC 20 MEQ TABLET.EFF NG-TUBE SCH (17:14)
[2023-12-17] MEDS: POTASSIUM CHLORIDE 10 MEQ in WATER FOR INJECTION 1 100ML.BAG IVPB SCH (21:59)
[2023-12-17] MEDS ORDERED: POTASSIUM BICARBONATE/CIT AC 20 MEQ TABLET.EFF NG-TUBE SCH (22:00)
[2023-12-18 04:05] VITALS: TEMP 97.9
--- NOTE | 2023-12-18 04:30 | P.PN ---
Subjective Progress Note Date: 12/17/23 58-year-old female came to hospital with complaints of right lower extremity redness warmth and pain which apparently improved significantly today. Patient has a wound on the posterior aspect of the mid calf area. Patient was later found to be septic hypotensive admitted to ICU with broad-spectrum antibiotics vancomycin and Zosyn. Chest x-ray did not show any significant abnormality, urine analysis is abnormal with bacteria and squamous epithelial cells appear to be a contaminated urine sample. Patient had fever and mild leukocytosis venous Doppler showed fluid collection in the knee area and CT of the abdomen pelvis showed biliary sludge and patient is tachycardic patient is presently on pressor support. Patient is also having diarrhea before she came in which improved but still having diarrhea., Hyponatremic on admission presently hyponatremic and hyperchloremic elevated serum creatinine of 2.7 improving presently 1.7 to the baseline creatinine around 0.7. 12/16/2023 Patient is seen in follow-up continues in the ICU on pressor support with a blood pressure of 80 systolic reports to feeling extremely weak and symptomatic with dizziness and attempting to wean at this time. Patient also maintained on IV antibiotics with infectious disease following closely and awaiting finalized cultures to determine discharge antibiotics. Patient continues with right lower extremity pain and difficulty with ambulation. Recommend PT/OT therapy for evaluation. Preliminary culture showing strep a and also awaiting blood cultures. 12/17/2023 Patient continues in the ICU on pressor support as blood pressures continue to be relatively low. Patient does have history of hypertension and blood pressure medications are on hold. Patient continues on IV antibiotics in the form of cefazolin with infectious disease following and cultures thus far showing strep with sensitivities. Plan for discharge home on oral antibiotics. Continue with local wound care to the right lower extremity Review of systems: Constitutional: No reports of fatigue, fever, or chills Cardiovascular: No reports of chest pain or palpitations Respiratory: No reports of shortness of breath or cough GI: reports of occasional nausea, no vomiting, or diarrhea : No reports of dysuria or retention Neurovascular: reports of generalized weakness and continued severe right lower extremity pain All medications have been reviewed PHYSICAL EXAMINATION: GENERAL: The patient is alert and oriented x3, not in any acute distress. Well developed, well nourished. HEENT: Pupils are round and equally reacting to light. EOMI. No scleral icterus. No conjunctival pallor. Normocephalic, atraumatic. No pharyngeal erythema. No thyromegaly. CARDIOVASCULAR: S1 and S2 present. No murmurs, rubs, or gallops. PULMONARY: Diminished breath sounds bilaterally otherwise chest is clear to auscultation, no wheezing or crackles. ABDOMEN: Soft, nontender, nondistended, normoactive bowel sounds. No palpable organomegaly. MUSCULOSKELETAL: No joint swelling or deformity. EXTREMITIES: No cyanosis, clubbing, or pedal edema. Right lower extremity swelling noted worse than left and also wounds that are currently dressed with Optifoam dressing that is dry and intact NEUROLOGICAL: Gross neurological examination did not reveal any focal deficits. Diffusely weak SKIN: Cellulitis of the right lower extremity with wound in the posterior aspect of the mid calf area Assessment and plan -Septic shock etiology of septic shock is not clear although felt to be right lower extremity cellulitis -Diarrhea but abdominal CT showed biliary sludge source is not clear -Cellulitis of the right lower extremity with a wound: As mentioned above patient is on broad-spectrum antibiotics -Acute renal failure: Possibly acute tubular necrosis, continue IV fluids as well as sodium bicarbonate -Anion gap metabolic acidosis secondary lactic acidosis, improving -Non-anion gap develop acidosis secondary to hyperchloremia change IV fluids as mentioned above -Diarrhea: May need to obtain C. difficile if she continues to have diarrhea -Hypokalemia: secondary to nausea vomiting diarrhea, potassium replaced per protocol -Transaminitis secondary to sepsis -Hypothyroidism -Hypertension patient is presently hypotensive requiring pressor support -Asthma without any acute exacerbation DVT prophylaxis: Subcutaneous heparin GI prophylaxis Full code Plan: Patient remains in the ICU on pressor support currently attempting to wean altho ugh blood pressures remain relatively low. Patient continues to report severe right lower extremity pain and was only using Tylenol. Attempting to avoid narcotic use. Will add Toradol Follow-up on repeat labs and replace electrolytes per protocol Continue with IV antibiotics per ID recommendations and local wound care. Elevate lower extremity while at rest The impression and plan of care has been dictated by Mamta Hood, Nurse Practitioner as directed. Dr. Nannette MD I have performed a history and examination and MDM of this patient, discussed the same with the dictator, and agree with the dictator's assessment and plan as written ,documented as a scribe. Based on total visit time, I have performed more than 50% of the visit. Objective - Vital Signs Vital signs: Vital Signs Temp 97.9 F 12/18/23 04:00 Pulse 98 12/18/23 04:00 Resp 17 12/18/23 04:00 BP 104/73 12/18/23 04:00 Pulse Ox 95 12/18/23 04:00 FiO2 Intake & Output 12/17/23 12/17/23 12/18/23 06:59 18:59 06:59 Intake Total 9429.473 7193.106 1784.527 Output Total 300 150 Balance 6083.071 2357.106 1634.527 Weight 66.4 kg 66.4 kg 65.4 kg Intake: IV 1200 1300 1250 Dextrose 5% in Water 1, 1200 1200 1000 000 ml @ 100 mls/hr IV . [id number] JAZMIN with Sodium Bicarb (1 Meq/ml) 150 ml Rx#:[id number] Potassium Chloride 10 meq 200 In Water For Injection 1 100ml.bag @ 100 mls/hr IVPB Q1HR [facility] Rx#: [id number] ceFAZolin 2 gm In Sodium 100 50 Chloride 0.9% 50 ml @ 100 mls/hr IVPB Q8HR [facility] Rx# :[id number] Intake, IV Titration 109.442 147.106 34.527 Amount Norepinephrine 4 mg In 59.442 147.106 34.527 Sodium Chloride 0.9% 250 ml @ 0.03 MCG/KG/MIN 6. 481 mls/hr IV .Q24H [facility] Rx#:[id number] ceFAZolin 2 gm In Sodium 50 Chloride 0.9% 50 ml @ 100 mls/hr IVPB Q8HR [facility] Rx# :[id number] Oral 300 Other 1000 500 Output: Urine 0 150 Urine/Stool Mix 300 Other: Voiding Method Toilet Bedside Commode # Voids 1 1 1 # Bowel Movements 1 1 - Labs CBC & Chem 7: 12/17/23 07:33 12/17/23 20:55 Labs: Abnormal Lab Results - Last 24 Hours (Table) 12/17/23 12/17/23 Range/Units 05:27 07:33 WBC 16.2 H (3.8-10.6) k/uL Plt Count 33 L D (150-450) k/uL Neutrophils # (Manual) 15.00 H (1.3-7.7) k/uL Lymphocytes # (Manual) 0.65 L (1.0-4.8) k/uL Myelocytes # (Manual) 0.32 H (0) k/uL Sodium 132 L (137-145) mmol/L BUN 25 H (7-17) mg/dL Creatinine 1.05 H (0.52-1.04) mg/dL Calcium 6.4 L* (8.4-10.2) mg/dL Total Bilirubin 6.3 H (0.2-1.3) mg/dL Alkaline Phosphatase 139 H (38-126) U/L Total Protein 3.6 L (6.3-8.2) g/dL Albumin 1.8 L (3.5-5.0) g/dL Microbiology - Last 24 Hours (Table) 12/14/23 16:15 Blood Culture - Preliminary Blood 12/15/23 08:15 Anaerobic Culture - Preliminary Foot - Right 12/15/23 08:15 Gram Stain - Final Foot - Right Wound Culture - Final Strep A
[2023-12-18] MEDS: NON FORMULARY DRUG (Alendronate Sodium [Alendronate Sodium] 70 MG) PO SCH (05:00)
[2023-12-18 06:44] LABS: Basophils # (A) 0.1 k/uL (0-0.2); Basophils % (A) 0 %; Eosinophils % (A) 0 %; HCT 37.3 % (34.0-46.0); Lymphocytes % (A) 11 %; MCH 34.7 pg (25.0-35.0); MCV 99.3 fL (80.0-100.0); Mean Platelet Volume 12.9; Monocytes # (A) 0.5 k/uL (0-1.0); Monocytes % (A) 2 %; Neutrophils % (A) 84 %; RBC 3.75 m/uL (3.80-5.40); RDW 13.5 % (11.5-15.5); WBC 27.4 k/uL (3.8-10.6)
[2023-12-18 06:59] LABS: African American GFR (CKD) >90 (>60 ml/min/1.73 sqM); Anion Gap 4 mmol/L; Blood Urea Nitrogen 21 mg/dL (7-17); Carbon Dioxide 30 mmol/L (22-30); Chloride 95 mmol/L (98-107); Glucose 138 mg/dL (74-99); Non-African American GFR(CKD) 79 (>60 ml/min/1.73 sqM); Potassium 3.6 mmol/L (3.5-5.1); Sodium 129 mmol/L (137-145)
[2023-12-18 07:08] LABS: Platelet Count 22 k/uL (150-450)
[2023-12-18 07:24] LABS: Calcium 6.4 mg/dL (8.4-10.2)
[2023-12-18 07:41] LABS: RBC Morphology Normal; Toxic Granulation Present; Toxic Vacuolation Present
[2023-12-18] MEDS: POTASSIUM BICARBONATE/CIT AC 20 MEQ TABLET.EFF NG-TUBE SCH (08:57)
[2023-12-18] MEDS: LACTATED RINGERS 1,000 ML IV SCH (10:13)
[2023-12-18] MEDS: ONDANSETRON 4 MG/2 ML VIAL IVP PRN (10:15)
[2023-12-18] MEDS: SYMBICORT 160-4.5 MCG INHALER INHALATION SCH (11:07)
[2023-12-18 11:25] LABS: Ionized Calcium 3.9 mg/dL (4.5-5.3)
[2023-12-18 11:43] LABS: Potassium 3.8 mmol/L (3.5-5.1)
[2023-12-18] MEDS ORDERED: CALCIUM GLUCONATE IN NACL 1 GM in SALINE 1 100ML.BAG IVPB ONE (11:47)
--- NOTE | 2023-12-18 12:14 | P.PN ---
Subjective Progress Note Date: 12/18/23 Patient is a 58-year-old female with past medical history significant for partial thyroidectomy, hypothyroidism, hypertension, anxiety, and eosinophilic asthma. Primary care provider is Dr. Lua. She follows with Dr. Rodriguez for management of her asthma. She is currently receiving Fasenra injections. Also, uses Qvar inhaler and as needed albuterol inhaler. Starting Friday, the patient noticed right lower extremity redness and warmth and pain. Developed worsening generalized weakness and fever. She has had associated nausea, vomiting, and diarrhea. Reduced oral intake. Admits to being dizzy on standing. She is currently being evaluated in the ED, trauma bay 1. She was hypotensive on arrival. I am told she has received a total of 3 L of normal saline bolus. She is alert and oriented. Remains hypotensive, blood pressure currently 86/45 mmHg. Heart rate is tachycardic around 120 bpm. She will likely require a norepinephrine infusion. Her right lower extremity is outlined. He is edematous and erythemic and blotchy. Extremity is hot to palpation. On the posterior aspect of the calf there is a centimeter shallow ulceration without significant drainage. She does not recall any injuries to this extremity. Denies history of skin or MRSA infections. There is good dist al circulation. CBC: WBC count 10, hemoglobin 15.2, hematocrit 44.3, platelets 179. Abnormal coagulation profile: PT 16.6, INR 1.6, APTT 39.1. CMP: Sodium 131, potassium 2.6, chloride 95, serum bicarb 19, BUN 41, creatinine 2.07, glucose 120. Lactic was 4.9 and is down to 1.5. LFTs mildly elevated. Urinalysis was a contaminated sample. Patient denies any urinary complaints. Chest x-ray does not show any acute cardiopulmonary process. A CT of the abdomen and pelvis demonstrating a relatively unremarkable appearance of the liver. No evidence of ductal dilation. High density in the gallbladder lumen. 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 Colonic diverticulosis without diverticulitis. Right tibia/fibula x-ray did not show any evidence of acute fracture. Soft tissue swelling throughout the right lower extremity. Without subcutaneous lucency or osseous erosion. I suspect cellulitis/sepsis. She was febrile on arrival to the ED with a Tmax of 100.1 F. Empirically covered on vancomycin and Zosyn. The patient is seen today December 15 intensive care unit. She is currently sitting up in a chair at the bedside. Awake and alert in no acute distress. She is maintaining good O2 saturations in the 90s on room air. She has D5W with 3 A of bicarb at 100 mL/h. She is on norepinephrine at 3 mcg/min. She remains on antibiotics in the form of Unasyn. Right foot wound cultures positive for strep A. White count 7.7. Hemoglobin 13.8. Platelets 80,000. Sodium 134. Potassium 3.0. Bicarb is 17. BUN 30. Creatinine 1.28. Ionized calcium 3.8. Albumin 2.0. TSH 1.00. The patient is seen today December 17 2023 in follow-up in the intensive care unit. She is awake and alert in no acute distress. Sitting up in a chair at the bedside. Maintaining O2 saturations in the 90s on room air. She is still requiring norepinephrine at 0.06 mcg/kg/min. D5W with 3 A of bicarb at 100 mL/h. She is continued on albuterol, Flovent, Singulair. White count 16.2. Hemoglobin 13.2. Sodium 132. Potassium 3.5. Bicarb 24. BUN 25. Creatinine 1.05. Calcium 6.4. TSH 1.00. Cortisol level 22.9. Right foot wound infection is positive for strep A. She is currently on cefazolin. The patient is seen today December 18, 2023 in follow-up in the intensive care [facility]. She is currently sitting up in bed. Awake and alert in no acute distress. Maintaining O2 saturations in the 90s on room air. She is still requiring norepinephrine at 2.6 mcg/min. She has D5W with 3 A of bicarb at 100 mL/h. She is continued on Symbicort and albuterol. She remains on antibiotics in the form of cefazolin. Wound culture was positive for strep A. Blood culture revealed no growth. Sputum culture revealed no growth. White count 27.4. Hemoglobin 13.0. Platelets 22,000. Sodium 129. Potassium 3.8. Bicarb 30. BUN 21. Creatinine 0.82. Ionized calcium 3.9. HIT panel pending. Chest x-ray reveals no acute pulmonary process. Evidence of COPD. Objective - Vital Signs Vital signs: Vital Signs Temp 97.9 F 12/18/23 04:00 Pulse 92 12/18/23 07:00 Resp 12 12/18/23 07:00 BP 119/74 12/18/23 07:00 Pulse Ox 94 L 12/18/23 07:00 FiO2 Intake & Output 12/17/23 12/18/23 12/18/23 18:59 06:59 18:59 Intake Total 2447.106 2101.824 394.068 Output Total 300 150 Balance 2147.106 1951.824 394.068 Weight 66.4 kg 65.4 kg Intake: IV 1300 1450 350 Dextrose 5% in Water 1, 1200 1200 300 000 ml @ 100 mls/hr IV . [id number] JAZMIN with Sodium Bicarb (1 Meq/ml) 150 ml Rx#:[id number] Potassium Chloride 10 meq 200 In Water For Injection 1 100ml.bag @ 100 mls/hr IVPB Q1HR [facility] Rx#: [id number] ceFAZolin 2 gm In Sodium 100 50 50 Chloride 0.9% 50 ml @ 100 mls/hr IVPB Q8HR [facility] Rx# :[id number] Intake, IV Titration 147.106 151.824 44.068 Amount Norepinephrine 4 mg In 147.106 151.824 44.068 Sodium Chloride 0.9% 250 ml @ 0.03 MCG/KG/MIN 6. 481 mls/hr IV .Q24H [facility] Rx#:[id number] Other 1000 500 Output: Urine 0 150 Urine/Stool Mix 300 Other: Voiding Method Toilet Toilet Bedside Commode # Voids 1 1 1 # Bowel Movements 1 - Exam GENERAL EXAM: Alert, 58-year-old female, resting in bed, on room air, in no apparent distress. HEAD: Normocephalic and atraumatic EYES: Normal reaction of pupils, equal size. NOSE: Clear with pink turbinates. THROAT: No erythema or exudates. NECK: No masses, no JVD. CHEST: No chest wall deformity. LUNGS: Equal air entry with no crackles, wheeze, rhonchi or dullness. No conversational dyspnea or accessory muscle use.. CVS: S1 and S2 normal with no audible murmur, regular rhythm. No extra heart sounds ABDOMEN: No hepatosplenomegaly, active bowel sounds, no guarding or rigidity. SPINE: No scoliosis or deformity SKIN: Right lower extremity is erythemic, and warm. There is a shallow centimeter ulceration on the posterior aspect of the calf. No significant drainage. This extremity is outlined CENTRAL NERVOUS SYSTEM: No focal deficits, tone is normal in all 4 extremities. EXTREMITIES: Left lower extremity is without peripheral edema, clubbing, or cyanosis. Peripheral dorsalis pedal/posterior tibial pulses 2+ - Labs CBC & Chem 7: 12/18/23 05:50 12/18/23 11:01 Labs: Abnormal Lab Results - Last 24 Hours (Table) 12/18/23 12/18/23 12/18/23 Range/Units 05:50 05:50 11:01 WBC 27.4 H (3.8-10.6) k/uL RBC 3.75 L (3.80-5.40) m/uL Plt Count 22 L (150-450) k/uL Neutrophils # 23.0 H (1.3-7.7) k/uL Sodium 129 L (137-145) mmol/L Chloride 95 L (98-107) mmol/L BUN 21 H (7-17) mg/dL Glucose 138 H (74-99) mg/dL Calcium 6.4 L* (8.4-10.2) mg/dL Ionized Calcium Lazaro 3.9 L (4.5-5.3) mg/dL Microbiology - Last 24 Hours (Table) 12/14/23 16:15 Blood Culture - Preliminary Blood 12/15/23 08:15 Anaerobic Culture - Preliminary Foot - Right 12/15/23 08:15 Gram Stain - Final Foot - Right Wound Culture - Final Strep A Assessment and Plan Assessment: Suspect cellulitis of the right lower extremity. Doppler negative for DVT. Culture showing strep A. Currently on cefazolin Sepsis/hypotension/septic shock, secondary to above, requiring pressors Leukocytosis secondary to above Thrombocytopenia, HIT panel pending Anion gap metabolic acidosis and lactic acidosis, improving Acute febrile illness, recovered Nausea, vomiting, diarrhea; no acute abdominal process noted on abdominal/pelvis CT Acute kidney injury, secondary to combination of severe dehydration and hypo tension with ATN Severe hypokalemia, being replaced per protocol Hypocalcemia, being replaced Mild transaminitis, secondary to hypotension and shock History of partial thyroidectomy and secondary hypothyroidism History of hypertension Eosinophilic asthma, currently receives Fasenra injections outpatient, appears stable History of anxiety Plan: The patient was seen and evaluated Chest x-ray, labs and medications reviewed Discontinue bicarb drip, add lactated Ringer's at 75 mL/h Replace calcium Discontinue Pulmicort and Flovent Add Symbicort Continued albuterol Titrate down the norepinephrine as tolerated Continued on cefazolin Heparin on hold due to thrombocytopenia HIT panel pending We will continue to follow I have personally seen and examined the patient, performed the documentation and the assessment and plan as written. Number of minutes spent on the visit: 10 Dictation was produced using [employer] dictation software. Please excuse any grammatical, word or spelling errors.
[2023-12-18] MEDS: POTASSIUM CHLORIDE 10 MEQ in WATER FOR INJECTION 1 100ML.BAG IVPB SCH (12:21)
[2023-12-18] MEDS: CALCIUM GLUCONATE IN NACL 2 GM in SALINE 1 100ML.BAG IVPB ONE (12:21)
--- NOTE | 2023-12-18 12:58 | P.PN ---
Subjective Progress Note Date: 12/17/23 Principal diagnosis: Reason for follow-up is right lower extremity cellulitis Patient is a 58-year-old female with a past medical history significant for hypertension reflux COPD and hypothyroidism presenting to the hospital for evaluation of not feeling well patient has been diagnosed with sepsis in the right lower extremity cellulitis with local culture positive for group A strep blood culture has been negative so far. On today's evaluation that is 12/17/2023,the patient denies any fever or any chills, patient is breathing comfortably on room air, the patient denies chest pain shortness of breath and no significant cough, patient denies abdominal pain, no nausea vomiting or diarrhea. Still complaining of pain and swelling to the right lower extremity but no worsening controlled with the pain medication. Patient white count slightly up to 16.2 creatinine is normal blood culture negative Objective - Vital Signs Vital signs: Vital Signs Temp 97.8 F 12/17/23 08:00 Pulse 110 H 12/17/23 11:30 Resp 17 12/17/23 11:30 BP 78/58 12/17/23 11:30 Pulse Ox 96 12/17/23 11:30 FiO2 Intake & Output 12/16/23 12/17/23 12/17/23 18:59 06:59 18:59 Intake Total 7375.100 4460.442 691.584 Output Total 0 300 Balance 4677.524 6400.442 391.584 Weight 66.4 kg 66.4 kg Intake: IV 1200 1200 650 Dextrose 5% in Water 1, 1200 1200 600 000 ml @ 100 mls/hr IV . [id number] JAZMIN with Sodium Bicarb (1 Meq/ml) 150 ml Rx#:[id number] ceFAZolin 2 gm In Sodium 50 Chloride 0.9% 50 ml @ 100 mls/hr IVPB Q8HR [facility] Rx# :[id number] Intake, IV Titration 67.819 109.442 41.584 Amount Norepinephrine 4 mg In 67.819 59.442 41.584 Sodium Chloride 0.9% 250 ml @ 0.03 MCG/KG/MIN 6. 481 mls/hr IV .Q24H [facility] Rx#:[id number] ceFAZolin 2 gm In Sodium 50 Chloride 0.9% 50 ml @ 100 mls/hr IVPB Q8HR [facility] Rx# :[id number] Oral 450 300 Output: Urine 0 0 Urine/Stool Mix 300 Other: # Voids 1 1 # Bowel Movements 1 1 - Exam GENERAL DESCRIPTION: Middle-age female up in the chair in no distress RESPIRATORY SYSTEM: Unlabored breathing , decreased breath sounds at bases HEART: S1 S2 regular rate and rhythm , ABDOMEN: Soft , no tenderness EXTREMITIES: Right lower extremity did have swelling some weeping edema blister redness to the right foot has decreased - Labs CBC & Chem 7: 12/18/23 05:50 12/18/23 11:01 Labs: Abnormal Lab Results - Last 24 Hours (Table) 12/16/23 12/16/23 12/17/23 Range/Units 08:45 15:54 05:27 WBC (3.8-10.6) k/uL Plt Count (150-450) k/uL Neutrophils # (Manual) (1.3-7.7) k/uL Lymphocytes # (Manual) (1.0-4.8) k/uL Myelocytes # (Manual) (0) k/uL Sodium 132 L (137-145) mmol/L Potassium 3.4 L (3.5-5.1) mmol/L BUN 25 H (7-17) mg/dL Creatinine 1.05 H (0.52-1.04) mg/dL Calcium 6.4 L* (8.4-10.2) mg/dL Total Bilirubin 6.3 H (0.2-1.3) mg/dL Alkaline Phosphatase 139 H (38-126) U/L Total Protein 3.6 L (6.3-8.2) g/dL Albumin 1.8 L (3.5-5.0) g/dL Cortisol 22.9 H (3.1-22.4) UG/DL 12/17/23 Range/Units 07:33 WBC 16.2 H (3.8-10.6) k/uL Plt Count 33 L D (150-450) k/uL Neutrophils # (Manual) 15.00 H (1.3-7.7) k/uL Lymphocytes # (Manual) 0.65 L (1.0-4.8) k/uL Myelocytes # (Manual) 0.32 H (0) k/uL Sodium (137-145) mmol/L Potassium (3.5-5.1) mmol/L BUN (7-17) mg/dL Creatinine (0.52-1.04) mg/dL Calcium (8.4-10.2) mg/dL Total Bilirubin (0.2-1.3) mg/dL Alkaline Phosphatase (38-126) U/L Total Protein (6.3-8.2) g/dL Albumin (3.5-5.0) g/dL Cortisol (3.1-22.4) UG/DL Microbiology - Last 24 Hours (Table) 12/15/23 08:15 Gram Stain - Final Foot - Right Wound Culture - Final Strep A 12/14/23 16:15 Blood Culture - Preliminary Blood 12/14/23 19:51 Urine Culture - Final Urine,Voided Assessment and Plan (1) Cellulitis of right leg Current Visit: Yes Status: Acute Code(s): L03.115 - CELLULITIS OF RIGHT LOWER LIMB SNOMED Code(s): 46572854692936637 (2) Sepsis Current Visit: Yes Status: Acute Code(s): A41.9 - SEPSIS, UNSPECIFIED ORGANISM SNOMED Code(s): 80448922 Plan: 1patient presented to hospital with sepsis in this patient who did have fever tachycardia and hypotension meeting creatinine for SIRS source is right lower extremity cellulitis and more likely from gram-positive skin aileen less likely gram-negative infection 2patient with a mild renal insufficiency risk of nephrotoxicity from vancomycin and Zosyn combination which has been discontinued 3local culture has been positive for group A strep antibiotic 4patient to continue with local wound care with a dry Aquacel silver dressing to the blister/open area followed by Da wrap from just above the toe to below the knee change daily, 5cefazolin 2 g every 8 hours and will watch her white count closely she did received a dose of steroids and may make the white count to be slightly elevated tomorrow as well Dictation was produced using [employer] dictation software. please excuse any grammatical, word or spelling errors. Time with Patient: Less than 30
--- NOTE | 2023-12-18 13:00 | P.PN ---
Subjective Progress Note Date: 12/18/23 Principal diagnosis: Reason for follow-up is right lower extremity cellulitis Patient is a 58-year-old female with a past medical history significant for hypertension reflux COPD and hypothyroidism presenting to the hospital for evaluation of not feeling well patient has been diagnosed with sepsis in the right lower extremity cellulitis with local culture positive for group A strep blood culture has been negative so far. On today's evaluation that is 12/18/2023,the patient remains to be afebrile, patient is on room air however seem to have a problem with the low O2 sats last night requiring supplemental oxygen patient denies having any chest pain or cough chest x-ray this morning is pending no nausea vomiting abdominal pain or diarrhea pain to the right lower extremity has slightly decreased in intensity. Patient white count is up to 27.4, creatinine 0.82 Objective - Vital Signs Vital signs: Vital Signs Temp 97.9 F 12/18/23 04:00 Pulse 92 12/18/23 07:00 Resp 12 12/18/23 07:00 BP 119/74 12/18/23 07:00 Pulse Ox 94 L 12/18/23 07:00 FiO2 Intake & Output 12/17/23 12/18/23 12/18/23 18:59 06:59 18:59 Intake Total 2447.106 2101.824 394.068 Output Total 300 150 Balance 2147.106 1951.824 394.068 Weight 66.4 kg 65.4 kg Intake: IV 1300 1450 350 Dextrose 5% in Water 1, 1200 1200 300 000 ml @ 100 mls/hr IV . [id number] JAZMIN with Sodium Bicarb (1 Meq/ml) 150 ml Rx#:[id number] Potassium Chloride 10 meq 200 In Water For Injection 1 100ml.bag @ 100 mls/hr IVPB Q1HR JAZMIN Rx#: [id number] ceFAZolin 2 gm In Sodium 100 50 50 Chloride 0.9% 50 ml @ 100 mls/hr IVPB Q8HR JAZMIN Rx# :[id number] Intake, IV Titration 147.106 151.824 44.068 Amount Norepinephrine 4 mg In 147.106 151.824 44.068 Sodium Chloride 0.9% 250 ml @ 0.03 MCG/KG/MIN 6. 481 mls/hr IV .Q24H JAZMIN Rx#:[id number] Other 1000 500 Output: Urine 0 150 Urine/Stool Mix 300 Other: Voiding Method Toilet Toilet Bedside Commode # Voids 1 1 1 # Bowel Movements 1 - Exam GENERAL DESCRIPTION: Middle-age female up in the chair in no distress RESPIRATORY SYSTEM: Unlabored breathing , decreased breath sounds at bases HEART: S1 S2 regular rate and rhythm , ABDOMEN: Soft , no tenderness EXTREMITIES: Right lower extremity swelling redness has decreased 1 blister on the lateral aspect of the foot but other blister have resolved - Labs CBC & Chem 7: 12/18/23 05:50 12/18/23 11:01 Labs: Abnormal Lab Results - Last 24 Hours (Table) 12/18/23 12/18/23 Range/Units 05:50 05:50 WBC 27.4 H (3.8-10.6) k/uL RBC 3.75 L (3.80-5.40) m/uL Plt Count 22 L (150-450) k/uL Neutrophils # 23.0 H (1.3-7.7) k/uL Sodium 129 L (137-145) mmol/L Chloride 95 L (98-107) mmol/L BUN 21 H (7-17) mg/dL Glucose 138 H (74-99) mg/dL Calcium 6.4 L* (8.4-10.2) mg/dL Microbiology - Last 24 Hours (Table) 12/14/23 16:15 Blood Culture - Preliminary Blood 12/15/23 08:15 Anaerobic Culture - Preliminary Foot - Right 12/15/23 08:15 Gram Stain - Final Foot - Right Wound Culture - Final Strep A Assessment and Plan (1) Cellulitis of right leg Current Visit: Yes Status: Acute Code(s): L03.115 - CELLULITIS OF RIGHT LOWER LIMB SNOMED Code(s): 88772158712080635 (2) Sepsis Current Visit: Yes Status: Acute Code(s): A41.9 - SEPSIS, UNSPECIFIED ORGANISM SNOMED Code(s): 72418583 Plan: 1patient presented to hospital with sepsis in this patient who did have fever tachycardia and hypotension meeting creatinine for SIRS source is right lower extremity cellulitis and more likely from gram-positive skin aileen less likely gram-negative infection 2patient with a mild renal insufficiency risk of nephrotoxicity from vancomycin and Zosyn combination which has been discontinued 3local culture has been positive for group A strep antibiotic 4patient to continue with local wound care with a dry Aquacel silver dressing to the blister/open area followed by Da wrap from just above the toe to below the knee change daily, 5patient did have worsening of the white count which could be related to steroids patient has received however the patient seem to be slightly concerning we will add clindamycin to the cefazolin antibiotic regimen also add probiotic and has been instructed with incentive spirometry Family at the bedside they have multiple questions and concerns those has been answered in layman term Dictation was produced using [employer] dictation software. please excuse any grammatical, word or spelling errors. Time with Patient: Less than 30
[2023-12-18] MEDS: LACTOBACILLUS ACIDOPHILUS/PECT 1 EACH CAPSULE PO SCH (13:36)
--- NOTE | 2023-12-18 14:39 | XR ---
EXAMINATION TYPE: XR chest 1V portable DATE OF EXAM: 12/18/2023 11:42 AM COMPARISON: Chest radiographs from 12/14/2023 CLINICAL INDICATION: Female, 58 years old with history of shortness of breath; [facility] TECHNIQUE: XR chest 1V portable Frontal view of the chest. FINDINGS: Lungs/Pleura: There is no evidence of pleural effusion, focal consolidation, or pneumothorax. Pulmonary vascularity: Unremarkable. Heart/mediastinum: Cardiomediastinal silhouette is unremarkable. Musculoskeletal: No acute osseous pathology. Other findings: Peripherally calcified suspected pseudocyst in the left upper quadrant. Stable from p rior. IMPRESSION: No acute cardiopulmonary disease/process. [facility], , 12/18/2023 12:35 PM
[2023-12-18] MEDS: CLINDAMYCIN 900 MG in DEXTROSE 5% IN WATER 50 ML IVPB SCH (16:59)
[2023-12-18 17:04] VITALS: BP 108/69; PULSE 95; RESP 16
[2023-12-18] MEDS: SODIUM CHLORIDE 0.9% 1,000 ML IV SCH (17:57)
--- NOTE | 2023-12-19 05:18 | P.DS ---
Providers Date of admission: 12/14/23 19:36 Expected date of discharge: 12/18/23 Attending physician: Fabiana Maciel Consults: 12/14/23 19:36 Consult Physician Stat Consulting Provider: Rebeca Obregon Consult Reason/Comments: icu Do you want consulting provider notified?: Already Contacted 12/15/23 09:27 Consult Physician Routine Consulting Provider: Guerda Jose Consult Reason/Comments: Sepsis, cellulitis Do you want consulting provider notified?: Yes Primary care physician: Mar[facility] Course: Final diagnosis -Septic shock etiology of septic shock is secondary to right lower extremity cellulitis -Diarrhea but abdominal CT showed biliary sludge source is not clear, C. difficile pending -Cellulitis of the right lower extremity with a wound: As mentioned above patient is on broad-spectrum antibiotics -Acute renal failure: Possibly acute tubular necrosis, continue IV fluids as well as sodium bicarbonate -Anion gap metabolic acidosis secondary lactic acidosis, improving -Non-anion gap develop acidosis secondary to hyperchloremia change IV fluids as mentioned above -Hypokalemia: secondary to nausea vomiting diarrhea, potassium replaced per protocol -Transaminitis secondary to sepsis -Thrombocytopenia -Hypothyroidism -Hypertension patient is presently hypotensive requiring pressor support -Asthma without any acute exacerbation DVT prophylaxis: Subcutaneous heparin GI prophylaxis Full code Discharge disposition Patient is being transferred in a stable condition with guarded prognosis to [facility]. Patient will follow-up with her primary care provider in the outpatient setting upon discharge. Patient is to continue with antibiotics per ID recommendations. Total time taken is greater than 35 minutes. Hospital course This is a 58-year-old female who was recently admitted with concerns of sepsis with septic shock requiring pressor support in the ICU. Patient with right lower extremity cellulitis being monitored in the ICU as patient blood pressure was extremely low and maintained on antibiotics with infectious disease following. Patient also noted to have ATN with acute renal failure likely secondary to the sepsis. Patient does have insurance through her employer [employer] and per case management/social work patient requires a transfer to [facility] to continue treatment as she is out of network here. Transfer was initiated and patient will be transferred to [facility] once a bed is available. Please refer to other documentation from consultations for further HPI. Patient is now agreeable to the transfer. Patient was maintained on cefazolin and IV clindamycin was added per ID as patient white count was elevated. Patient is afebrile and did receive a dose of Solu-Cortef. Recommend follow-up labs and monitoring kidney functions along with white count. Patient to continue with local wound care and has been using Aquacel silver and Da wrap to the right lower extremity. Patient has been instructed to continue to elevate lower extremities while at rest. C. difficile sample was sent and pending as patient was having multiple episodes of diarrhea. Patient is being weaned off pressor support today and will be stable for transfer to [facility]. Currently no reports of chest pain, shortness of breath, or palpitations. Patient is afebrile. No reports of nausea or vomiting and patient is tolerating diet. Physical exam: Gen: This is a 58-year-old female who is awake, alert and oriented x 3, well- developed, elderly appearing HEENT: Head is atraumatic, normocephalic. Pupils equal, round. Sclerae is anicteric. NECK: Supple. No JVD. No lymphadenopathy. No thyromegaly. LUNGS: Diminished breath sounds bilaterally otherwise clear to auscultation. No wheezes or rhonchi. No intercostal retractions. HEART: Regular rate and rhythm. No murmur. ABDOMEN: Soft. Bowel sounds are present. No masses. No tenderness. EXTREMITIES: Right pedal edema. No calf tenderness. Right lower extremity swelling noted with 1+ pitting edema and extremely tender to palpation NEUROLOGICAL: Patient is awake, alert and oriented x3. Cranial nerves 2 through 12 are grossly intact. Please refer to medication reconciliation sheet for a list of medications. The impression and plan of care has been dictated by Mamta Hood, Nurse Practitioner as directed. Dr. Nannette MD I have performed a history and examination and MDM of this patient, discussed the same with the dictator, and agree with the dictator's assessment and plan as written ,documented as a scribe. Based on total visit time, I have performed more than 50% of the visit. Patient Condition at Discharge: Fair Plan - Discharge Summary Discharge Rx Participant: No New Discharge Prescriptions: No Action Levothyroxine Sodium [Synthroid] 50 mcg PO DAILY Losartan [Cozaar] 50 mg PO DAILY Montelukast [Singulair] 10 mg PO HS #30 tab Albuterol Inhaler [Ventolin Hfa Inhaler] 2 puff INHALATION RT-Q4H PRN #1 inhaler PRN Reason: Shortness Of Breath Alendronate Sodium 70 mg PO TU ALPRAZolam [Xanax] 2 mg PO BID PRN PRN Reason: Anxiety Beclomethasone Dipropionate [Qvar 80mcg Redihaler] 2 puff INHALATION RT-BID Discharge Medication List Levothyroxine Sodium [Synthroid] 50 mcg PO DAILY 10/15/16 [History] Losartan [Cozaar] 50 mg PO DAILY 05/07/17 [History] Albuterol Inhaler [Ventolin Hfa Inhaler] 2 puff INHALATION RT-Q4H PRN #1 inhaler 12/19/18 [Rx] Montelukast [Singulair] 10 mg PO HS #30 tab 12/19/18 [Rx] ALPRAZolam [Xanax] 2 mg PO BID PRN 12/14/23 [History] Alendronate Sodium 70 mg PO TU 12/14/23 [History] Beclomethasone Dipropionate [Qvar 80mcg Redihaler] 2 puff INHALATION RT-BID 12/14/23 [History] Follow up Appointment(s)/Referral(s): Marquis Lua DO [Primary Care Provider] - 1-2 days Discharge Disposition: OTHER INSTITUTION NOT DEFINED
[2023-12-23] MEDS ORDERED: NON FORMULARY DRUG (Alendronate Sodium [Alendronate Sodium] 70 MG Tablet) PO SCH (09:00)
== END 2023-12-18 20:35 | disposition short-term general hospital (02) | DRG 871 ==
LOC: EC 15:18 → 2SICU 19:36
PROVIDERS: ADMIT Hospitalist; ATTEND Hospitalist
PROC: 3E033XZ Introduction of Vasopressor into Peripheral Vein, Percutaneous Approach (ICD-10-PCS; principal; 2023-12-15)
DX: A41.9 Sepsis, unspecified organism (principal); N17.0 Acute kidney failure with tubular necrosis; R65.21 Severe sepsis with septic shock; L03.115 Cellulitis of right lower limb; E87.1 Hypo-osmolality and hyponatremia; E87.20 Acidosis, unspecified; J82.83 Eosinophilic asthma; E86.0 Dehydration; F32.A Depression, unspecified; R19.7 Diarrhea, unspecified; F41.9 Anxiety disorder, unspecified; F17.210 Nicotine dependence, cigarettes, uncomplicated; I10 Essential (primary) hypertension; E87.8 Other disorders of electrolyte and fluid balance, not elsewhere classified; E03.9 Hypothyroidism, unspecified; D69.6 Thrombocytopenia, unspecified; E83.51 Hypocalcemia; E87.6 Hypokalemia; Z79.890 Hormone replacement therapy; Z79.899 Other long term (current) drug therapy
CPT/HCPCS: 36415; 71045; 74176; 80048; 80053; 81001; 82040; 82330; 82533; 83605; 83735; 84132; 84443; 85025; 85049; 85610; 85730; 86022; 87040; 87070; 87075; 87077; 87086; 87186; 87205; 93005; 94640; 96361; 96365; 96366; 96367; 96368; 96372; 96375; 96376; 99291